=== PATIENT | male | born 1965 | race Caucasian/White ===

== ENCOUNTER 2022-06-19 21:22 | Inpatient (IN) | payer MEDICAID ==
[~2022-06-19] VITALS: Ht 172.7 cm; Wt 97.8 kg
--- NOTE | 2022-06-19 21:22 | NUR ---
PT BIBA FOR BRADYCARDIA, RESP DISTRESS, TRACH, VENT DEPENDENT. PT PLACED IN RM 2A ON MONITOR. DR Dariela DANIEL AND RESP AT BEDSIDE.
[2022-06-19] MEDS ORDERED: ALBUTEROL SULFATE 2.5 MG/3 ML NEBU ONE (21:25)
--- NOTE | 2022-06-19 21:26 | NUR ---
Called [facility] cardiology for panel call. Dr. Brooks banquet houseperson. Waiting for call back.
--- NOTE | 2022-06-19 21:40 | NUR ---
DR Dariela DANIEL PLACED A RT INTERNAL JUGULAR CENTRAL LINE. LABS DRAWN FROM LINE BY .
[2022-06-19] MEDS ORDERED: DOPamine IV DRIP 400 MG/250ML 250 ML ONE (21:57)
[2022-06-19] MEDS ORDERED: CEFTRIAXONE 1 G in IV DEXTROSE 5% 50 ML IV ONE (22:00)
[2022-06-19] MEDS ORDERED: PIPERACILLIN SODIUM/TAZOBACTAM 3.375 G in IV DEXTROSE 5% 50 ML IV ONE (22:00)
[2022-06-19] MEDS ORDERED: VANCOMYCIN IV 1,000 MG in IV DEXTROSE 5% 250 ML IV ONE (22:00)
[2022-06-19 22:14] LABS: HEMATOCRIT 22.6 % (36.7-47.1); MEAN CORPUSCULAR HEMOGLOBIN 33.7 uug (23.8-33.4); MEAN CORPUSCULAR VOLUME 102.2 fL (73.0-96.2)
[2022-06-19] MEDS ORDERED: ALBUTEROL SULFATE 2.5 MG/3 ML NEBU NEB ONE (22:15)
[2022-06-19] MEDS ORDERED: DOPamine IV DRIP 400 MG/250ML 250 ML IV PRN (22:15)
[2022-06-19 22:21] LABS: PLATELET COUNT (AUTO) 45 K/uL (152-348)
[2022-06-19 22:25] LABS: CARBON DIOXIDE 35 mmol/L (21-32); CHLORIDE 100 mmol/L (98-107); CREATININE 2.5 mg/dL (0.6-1.3); GLUCOSE 135 mg/dL (74-106); POTASSIUM 4.6 mmol/L (3.5-5.1); UREA NITROGEN, BLOOD 74 mg/dL (7-18)
[2022-06-19 22:28] LABS: BAND % (MANUAL) 2 % (0-10); LYMPHOCYTES % (MANUAL) 12 % (20-40)
[2022-06-19 22:29] LABS: EOSINOPHILS % (MANUAL) 10 % (0-8); MONOCYTES % (MANUAL) 4 % (2-10); NEUTROPHILS % (MANUAL) 72 % (42-75)
[2022-06-19 22:33] LABS: ABG BASE EXCESS 3.5 mmol/L; ABG HCO3 32.9 mmol/L; ABG PCO2 86.1 mmHg (35.0-45.0); ABG PO2 173.8 mmHg (75.0-100.0); ABG SITE LEFT RADIAL; ABG TOTAL HEMOGLOBIN 8.8 G/dL (13.5-18.0); COHb 0.3 % (0.5-1.5); MetHb 0.5 % (0.0-1.5); O2Hb 97.4 % (94.0-97.0); VENT MODE VENT - A/C; VT, ABG 450 mL
[2022-06-19 22:38] LABS: ALANINE AMINOTRANSFERASE 62 U/L (16-63); ALKALINE PHOSPHATASE 160 U/L (50-136); ASPARTATE AMINOTRANSFERASE 30 U/L (15-37); BILIRUBIN,DIRECT 0.1 mg/dL (0.0-0.2); BILIRUBIN,TOTAL 0.3 mg/dL (0.2-1.0); TOTAL PROTEIN, SERUM 7.6 g/dL (6.4-8.2)
[2022-06-19] MEDS ORDERED: chlorhexidine (23:04)
[2022-06-19] MEDS ORDERED: CHOL400C5 GT (23:04)
[2022-06-19] MEDS ORDERED: POLY15DR31 OP (23:04)
[2022-06-19] MEDS ORDERED: POLY250017 GT (23:04)
[2022-06-19] MEDS ORDERED: METO25TA6 GT (23:04)
[2022-06-19] MEDS ORDERED: ASCO500C18 GT (23:04)
[2022-06-19] MEDS ORDERED: FAMO20TA8 GT (23:04)
[2022-06-19] MEDS ORDERED: IPRA12.9 IH (23:04)
[2022-06-19] MEDS ORDERED: ZINC220T4 GT (23:04)
[2022-06-19] MEDS ORDERED: DOCU-141 GT (23:04)
[2022-06-19] MEDS ORDERED: ONDA-104 GT (23:04)
[2022-06-19] MEDS ORDERED: CLON0.1T GT (23:04)
[2022-06-19] MEDS ORDERED: MAGN400O6 GT (23:04)
[2022-06-19] MEDS ORDERED: BISA10SU61 RC (23:04)
[2022-06-19] MEDS ORDERED: ALBU8.5H8 IH (23:04)
[2022-06-19] MEDS ORDERED: ACET325C7 GT (23:04)
[2022-06-19] MEDS ORDERED: [UNRECOGNIZED DRUG - OTHER] SL (23:04)
[2022-06-19] MEDS ORDERED: LEVE500T9 GT (23:04)
[2022-06-19] MEDS ORDERED: NA P133E RC (23:04)
[2022-06-19] MEDS ORDERED: MULT-594 GT (23:04)
[2022-06-19] MEDS ORDERED: AMLO10TA59 PO (23:04)
--- NOTE | 2022-06-19 23:09 | NUR ---
Called [facility] for panel call. Dr. Wadsworth health education assistant.
[2022-06-19] MEDS ORDERED: IV NORMAL SALINE 500 ML BAG IV ONE (23:30)
[2022-06-19] MEDS ORDERED: VANCOMYCIN IV 200 ML ONE (23:44)
[2022-06-19] MEDS ORDERED: CEFTRIAXONE /D5W 50ML IVPB **ER PYXIS IV ONE (23:45)
[2022-06-19] MEDS ORDERED: PIPERACILLIN/TAZOBACTAM/D5W 50 ML IV ONE (23:45)
--- NOTE | 2022-06-19 23:45 | NUR ---
PREFORMED A GUIAC TEST. PT POSITIVE. TYPE AND SCREEN ORDERED.
--- NOTE | 2022-06-19 23:55 | NUR ---
LAB AT BEDSIDE. RN DRAWING TYPE AND SCREEN FROM CENTRAL LINE.
[2022-06-20] VITALS (77 sets, daily range): BP systolic 55–162; BP diastolic 23–101
[2022-06-20 00:03] LABS: *BILIRUBIN,URIN NEGATIVE (NEGATIVE); *BLOOD, URINE 3+ (NEGATIVE); *CLARITY,URINE TURBID (CLEAR); *COLOR,URINE YELLOW (YELLOW); *KETONES,URINE NEGATIVE (NEGATIVE); *UROBILINOGEN,URINE 0.2 E.U./dl (NORMAL); LEUKOCYTE ESTERASE ,URINE 3+ (NEGATIVE); NITRITE, URINE NEGATIVE (NEGATIVE); PH,URINE 6.5 (5.0-8.0); UGLUCOSE NEGATIVE (NEGATIVE)
[2022-06-20 00:06] LABS: *OCCULT BLOOD STOOL POSITIVE (NEGATIVE)
[2022-06-20 00:07] LABS: RBC,URINE TNTC /HPF (0-3); WBC,URINE TNTC /HPF (0-3)
[2022-06-20 00:08] LABS: BACTERIA,URINE MANY /HPF (NONE SEEN); SQUAMOUS EPITHELIAL CELL,UR NONE SEEN /HPF (NONE SEEN)
[2022-06-20] MEDS ORDERED: DOPamine IV DRIP 400 MG/250ML 250 ML ONE (00:26)
--- NOTE | 2022-06-20 00:32 | NUR ---
Called [facility] for panel call. Dr. Bean insulation worker furnace installer. Waiting insulation worker furnace installer back.
--- NOTE | 2022-06-20 00:39 | NUR ---
RT AT BEDSIDE SUCTIONING PT.
--- NOTE | 2022-06-20 01:11 | NUR ---
Dr. Green on [facility] call with Dr. Mckee. Pending admission.
[2022-06-20] MEDS ORDERED: NOREPINEPHRINE BITARTRATE 8 MG in IV NORMAL SALINE 242 ML IV PRN (01:15)
[2022-06-20 01:30] LABS: ABG HCO3 29.8 mmol/L; ABG PCO2 86.9 mmHg (35.0-45.0); ABG PH 7.153 (7.350-7.450); ABG PO2 417.1 mmHg (75.0-100.0); ABG SITE LEFT RADIAL; ABG TOTAL HEMOGLOBIN 8.6 G/dL (13.5-18.0); COHb 0.3 % (0.5-1.5); MetHb 0.3 % (0.0-1.5); O2Hb 99.2 % (94.0-97.0); VENT MODE VENT - A/C; VT, ABG 450 mL
[2022-06-20] MEDS ORDERED: REMEDY ESSENTIAL ZINC PASTE 113 GM TP PRN (01:30)
[2022-06-20] MEDS ORDERED: ACETAMINOPHEN 325 MG TABLET PO PRN (01:30)
[2022-06-20] MEDS ORDERED: ONDANSETRON 4 MG/2 ML VIAL IV PRN (01:30)
--- NOTE | 2022-06-20 01:40 | NUR ---
DR JUNIOR SAID TO CALL DR Scot LISA FOR A PULMONARY CONSULT
--- NOTE | 2022-06-20 01:55 | NUR ---
DR Scot LISA WAS CALLED . PT'S ABG VALUES WERE GIVEN. DR LISA SPOKE WITH RT. ORDERS WERE GIVEN TO CHANGE VENT SETTINGS FROM AC 18 TO AC 26.
--- NOTE | 2022-06-20 02:14 | NUR ---
Called patient's son on file. No one answered, left a message.
--- NOTE | 2022-06-20 02:25 | NUR ---
DR JUNIOR AT BEDSIDE FOR EVAL.
[2022-06-20] MEDS ORDERED: FUROSEMIDE 40 MG/4 ML VIAL IV ONE (03:00)
[2022-06-20 06:16] LABS: ABG BASE EXCESS 3.4 mmol/L; ABG HCO3 31.1 mmol/L; ABG PCO2 67.8 mmHg (35.0-45.0); ABG PH 7.279 (7.350-7.450); ABG PO2 412.8 mmHg (75.0-100.0); ABG SITE LEFT RADIAL; ABG TOTAL HEMOGLOBIN 8.4 G/dL (13.5-18.0); COHb 0.3 % (0.5-1.5); MetHb 0.3 % (0.0-1.5); O2Hb 99.2 % (94.0-97.0); VENT MODE VENT - A/C; VT, ABG 450 mL
--- NOTE | 2022-06-20 06:52 | NUR ---
Called [facility] for a hospital bed for patient to be brought down to the ER.
[2022-06-20] MEDS ORDERED: DOPamine IV DRIP 400 MG/250ML 250 ML IV PRN (07:00)
--- NOTE | 2022-06-20 07:00 | NUR ---
Received pt. on On mechanical ventilator A/C 26, Tv 450 Peep +5, 70% FIO2. Shiley 8. saturation of 96-98%. On hospital monitor and external pace, 120 mA rate of 70, On NSR rate,. Dopamine drip running at 20mcg/kg/min. G-T clumped and spangler to gravity. TLC RIJ patent, Right below the knee IO clamped as well. Abdominal folds with skin breakdown and generalized skin condition resembling psoriasis. Patient soiled and found in a pull of gastric secretions from G-t. Morning care provided and pt. transfer from 2A to room 1b due to monitoring issues not transmitting properly. Patient tolerated poorly been moved and with desaturation and sbp down to the low 80's.
--- NOTE | 2022-06-20 07:30 | NUR ---
Pulmonary services, Dr. Garcia in to examine pt. report given, orders to continue with care plan received.
[2022-06-20] MEDS ORDERED: PIPERACILLIN SODIUM/TAZOBACTAM 4.5 G in IV DEXTROSE 5% 50 ML IV SCH (08:00)
[2022-06-20] MEDS: NOREPINEPHRINE BITARTRATE 32 MG in IV NORMAL SALINE 218 ML IV PRN (08:04)
[2022-06-20] MEDS: DOPamine IV DRIP 800 MG/250ML 250 ML IV PRN ×2 (08:17→16:00)
--- NOTE | 2022-06-20 08:50 | NUR ---
Cardiology services, Dr. Jamil in the unit to examine pt. report given and at this time He changed external pacer to back rate of 40 and continue with 120mA. informed that pt, was started on levophed.
[2022-06-20] MEDS ORDERED: IPRATROPIUM BROMIDE 0.5 MG/2.5 ML NEBU ONE ×3 (08:52→19:49)
[2022-06-20] MEDS ORDERED: ALBUTEROL SULFATE 2.5 MG/ 0.5 ML NEBU ONE (08:52)
[2022-06-20] MEDS: IPRATROPIUM BROMIDE 0.5 MG/2.5 ML NEBU NEB SCH ×3 (08:55→19:44)
[2022-06-20] MEDS: ALBUTEROL SULFATE 2.5 MG/3 ML NEBU NEB SCH ×3 (08:55→19:44)
[2022-06-20] MEDS: PIPERACILLIN SODIUM/TAZOBACTAM 3.375 G in IV DEXTROSE 5% 100 ML IV SCH ×2 (08:58→16:02)
[2022-06-20] MEDS ORDERED: PANTOPRAZOLE SODIUM 40 MG VIAL ONE (09:07)
[2022-06-20] MEDS: PANTOPRAZOLE SODIUM 40 MG VIAL IV SCH (09:08)
[2022-06-20] MEDS ORDERED: VANCOMYCIN IV 1,250 MG in IV DEXTROSE 5% 250 ML IV ONE (10:00)
[2022-06-20] MEDS ORDERED: ALBUTEROL SULFATE 2.5 MG/3 ML NEBU ONE ×2 (13:04→19:48)
[2022-06-20 15:44] LABS: BILIRUBIN,TOTAL 0.4 mg/dL (0.2-1.0); CREATININE 2.5 mg/dL (0.6-1.3); MAGNESIUM 3.2 mg/dL (1.8-2.4); PHOSPHOROUS 7.5 mg/dL (2.5-4.9); POTASSIUM 4.9 mmol/L (3.5-5.1); TOTAL PROTEIN, SERUM 7.4 g/dL (6.4-8.2)
[2022-06-20 16:25] LABS: THYROID STIMULATING HORMONE 11.576 mIU/mL (0.358-3.740)
--- NOTE | 2022-06-20 18:28 | NUR ---
Patient left on Mechanical ventilator Trache to vent A/C 26, Tv450, Peep +5 FIo2 50%. saturation of 100% no respiratory distress. Hemodynamically stable sinus manny to NSR. Remains on external pacer Rate of 40, 120mA SBP sustained above 90's with levophed running at 0.1mc/kg/min, remains on Dopamine drip at 5mcg/kg/min, pt. did not tolerate been off with HR down to mid-40's. Rice to gravity and G-remains clumped awaiting recommendations.
--- NOTE | 2022-06-20 18:35 | NUR ---
Will endorse to incoming R.N. for continuity of care.
[2022-06-21] VITALS (72 sets, daily range): BP systolic 82–134; BP diastolic 43–73
[2022-06-21] MEDS: PIPERACILLIN SODIUM/TAZOBACTAM 3.375 G in IV DEXTROSE 5% 100 ML IV SCH ×3 (01:22→16:00)
[2022-06-21] MEDS ORDERED: ALBUTEROL SULFATE 2.5 MG/3 ML NEBU ONE ×4 (01:32→19:33)
[2022-06-21] MEDS ORDERED: IPRATROPIUM BROMIDE 0.5 MG/2.5 ML NEBU ONE ×4 (01:33→19:34)
[2022-06-21] MEDS: IPRATROPIUM BROMIDE 0.5 MG/2.5 ML NEBU NEB SCH ×4 (02:00→20:42)
[2022-06-21] MEDS: ALBUTEROL SULFATE 2.5 MG/3 ML NEBU NEB SCH ×4 (02:01→20:43)
[2022-06-21 04:48] LABS: HEMATOCRIT 23.7 % (36.7-47.1); MEAN CORPUSCULAR HEMOGLOBIN 32.7 uug (23.8-33.4); PLATELET COUNT (AUTO) 98 K/uL (152-348)
[2022-06-21 05:42] LABS: BILIRUBIN,TOTAL 0.4 mg/dL (0.2-1.0); CREATININE 2.9 mg/dL (0.6-1.3); MAGNESIUM 3.3 mg/dL (1.8-2.4); PHOSPHOROUS 7.6 mg/dL (2.5-4.9); POTASSIUM 4.2 mmol/L (3.5-5.1); TOTAL PROTEIN, SERUM 7.8 g/dL (6.4-8.2)
[2022-06-21 06:18] LABS: ABG BASE EXCESS 4.2 mmol/L; ABG HCO3 30.4 mmol/L; ABG PCO2 55.1 mmHg (35.0-45.0); ABG PO2 87.9 mmHg (75.0-100.0); ABG SITE RIGHT RADIAL; ABG TOTAL HEMOGLOBIN 8.6 G/dL (13.5-18.0); COHb 0.3 % (0.5-1.5); MetHb 0.3 % (0.0-1.5); O2Hb 95.2 % (94.0-97.0); VENT MODE VENT - A/C; VT, ABG 450 mL
--- NOTE | 2022-06-21 06:30 | NUR ---
End of Shift Summary Recieved patient in bed. Pt has no meaningful interaction with others. Pt is from a congregate home. Pt skin is covered with dry flaky skin. His eyes are covered with gauze. Upon inspection, patients eyes are bulging and red with yellow exudate. Patient has a history of conjuctivitis. Pt has a GTube but it is clamped. I inquired abut te patients glucose source, but was told that the Diateray and wound consults. Patient was found to have 2 ulcers on his Right ankle and right heel respectively. Awaiting wound care consult. Pt is on a transcutaneous pacer. Patients has copious secretions and he coughts and becomes spastic whenever he is suctioned or turned. Report endorsed to day shift RN. Vital signss stable at the change of shift.
--- NOTE | 2022-06-21 07:15 | NUR ---
Dr Garcia saw the patient as was shown the ABG results. All questions answered.
--- NOTE | 2022-06-21 07:20 | NUR ---
Recieved patient from outboard motor mechanic nurse. Pt is on pressors. Pt's skin is dry and flakey. GT is present and clamped. Dietary and would care consult have been requested. Pt's eyes are bulging with yellow exudate and hisotry of conjunctivitis. IV access is IO on right turcios and TLC in RIJ. Vent settings are AC 26, TV 450, PEEP 5, FIO2 50%. Trach size is Shiley 8. AOx0 posturing with touched or moved. Cardiac rhythm is SB to NSR in th 50s to 60s. External pacer attached with settings of 40BPM and 120 mA.
[2022-06-21] MEDS ORDERED: PANTOPRAZOLE SODIUM 40 MG VIAL ONE (07:34)
[2022-06-21] MEDS ORDERED: PIPERACILLIN/TAZOBACTAM/D5W 0 ML IV ONE (07:36)
--- NOTE | 2022-06-21 08:10 | NUR ---
Dr Villeda saw the patient and I updated him about patient's condition. Dr Villeda said that we can turn off the external pacer because it has not been needed in over 24 hours and we can turn it back on if it is needed. He turned it off at 8:10 AM.
[2022-06-21] MEDS: PANTOPRAZOLE SODIUM 40 MG VIAL IV SCH (08:20)
--- NOTE | 2022-06-21 17:00 | NUR ---
Dr Wadsworth saw the patient and was updated about his condition.
[2022-06-21] MEDS: DOPamine IV DRIP 800 MG/250ML 250 ML IV PRN (17:50)
[2022-06-22] VITALS (43 sets, daily range): BP systolic 83–126; BP diastolic 34–80
[2022-06-22] MEDS ORDERED: ALBUTEROL SULFATE 2.5 MG/3 ML NEBU ONE ×4 (00:35→19:10)
[2022-06-22] MEDS ORDERED: IPRATROPIUM BROMIDE 0.5 MG/2.5 ML NEBU ONE ×4 (00:36→19:10)
[2022-06-22] MEDS: IPRATROPIUM BROMIDE 0.5 MG/2.5 ML NEBU NEB SCH ×4 (01:02→19:14)
[2022-06-22] MEDS: ALBUTEROL SULFATE 2.5 MG/3 ML NEBU NEB SCH ×4 (01:02→19:14)
[2022-06-22] MEDS: PIPERACILLIN SODIUM/TAZOBACTAM 3.375 G in IV DEXTROSE 5% 100 ML IV SCH ×3 (01:28→16:39)
[2022-06-22 04:50] LABS: PLATELET COUNT (AUTO) 78 K/uL (152-348)
[2022-06-22 04:52] LABS: MEAN CORPUSCULAR HEMOGLOBIN 33.6 uug (23.8-33.4); MEAN CORPUSCULAR VOLUME 100.2 fL (73.0-96.2)
[2022-06-22 05:11] LABS: CREATININE 2.6 mg/dL (0.6-1.3); MAGNESIUM 2.8 mg/dL (1.8-2.4); POTASSIUM 4.1 mmol/L (3.5-5.1)
[2022-06-22 05:33] LABS: ABG BASE EXCESS 7.9 mmol/L; ABG HCO3 33.2 mmol/L; ABG PCO2 53.9 mmHg (35.0-45.0); ABG PH 7.408 (7.350-7.450); ABG PO2 91.1 mmHg (75.0-100.0); ABG SITE RIGHT RADIAL; COHb 0.3 % (0.5-1.5); MetHb 0.5 % (0.0-1.5); O2Hb 95.8 % (94.0-97.0); VENT MODE VENT - A/C; VT, ABG 450 mL
--- NOTE | 2022-06-22 06:40 | NUR ---
Pt received with eyes closed in bed. Pt is non verbal and does ot communicate in any meaningful way. Pt is sensitive to tactile stimulation only. His eyes are covered with gauze because of severe conjunctivities and bulging. Pt is on levophed 0.05mcg/kg and 5 mcg of levophed for BP and Heart Rate support. Pt had positive blood cultures gram positive cocci in clusters and chains. Pt also has gram negative rods. Dr. Wadsworth called about critical lab values, no further order. for positive blood cultures. Shortly after 0600, slab installer called to report Hgb is 6.4 and Hct is 19.0. Report called into Eliz Mercado CARD LACER JACQUARD who gave orders to transfuse one unit of PRBC's. At time of this report, I am still waitin fr the oncoming shift. Vitals signs stable at change of shift. Report endorsed to day shift RN.
--- NOTE | 2022-06-22 07:14 | NUR ---
I called Neva Green, () at telephone [phone] to obtain consent for blood transfusion. No response. I received a message that "the subscriber is not in service". I also called gerardo Reeder at [phone] but there was no response, so I left a message with the ER's telephone number to request a call back. Report endorsed to day shift RN.
[2022-06-22] MEDS ORDERED: PANTOPRAZOLE SODIUM 40 MG VIAL ONE (07:48)
[2022-06-22] MEDS: PANTOPRAZOLE SODIUM 40 MG VIAL IV SCH (08:02)
--- NOTE | 2022-06-22 08:45 | NUR ---
Spoke with Dr Garcia about pt at bedside when he saw the patient. I updated him as to the patients FIO2 and ABG results and other labs and patients condition.
--- NOTE | 2022-06-22 12:02 | NUR ---
WOUND CARE CONSULT: PT PRESENTS WITH GENERALIZED SKIN CONDITION WITH REDDENED SKIN WHICH IS FLAKY AND HARDENED WITH GENERALIZED EDEMA, RT LATERAL ANKLE OPEN WOUND WITH HARDWARE EXPOSURE AND RT HEEL WOUND, ALL PRESENT ON ADMISSION. DEFER TO PMD FOR GENERALIZED SKIN CONDITION, UNKNOWN ETIOLOGY. DR DICKERSON CALLED FOR DPM CONSULT. DISCUSSED SKIN PROTECTION RECOMMENDATIONS WITH NURSING STAFF. MD IN AGREEMENT WITH PLAN OF CARE.
--- NOTE | 2022-06-22 12:05 | NUR ---
I called the at her phone number and no answer and a message that said the number is no longer in service [phone]. I also called the step son Varinder Latif at [phone] ([place] -3 hours time difference) and left a message when he didn't answer.
[2022-06-22] MEDS: DOPamine IV DRIP 800 MG/250ML 250 ML IV PRN (13:10)
[2022-06-22] MEDS: VANCOMYCIN IV 500 MG in IV DEXTROSE 5% 100 ML IV SCH (13:58)
--- NOTE | 2022-06-22 15:05 | NUR ---
Spoke with Sam Giullory (Pronounced "Rainy") [phone] (step son) about blood tranfusion consent and he informed me that the one to give consent is the patients , Flaquita Green. He told me that she doesn't have a phone number that works at this time but that she could be reached by email. I told him that we can't do email consent for transfusion and asked him to email her to call us about obtaining the consent for the transfusion as soon as possible.
--- NOTE | 2022-06-22 15:25 | NUR ---
Dr Wadsworth saw the patient and I updated him about the delay for the transfusion because we are having difficulty obtrining the consent from the of the patient.
--- NOTE | 2022-06-22 19:00 | NUR ---
VERBAL BEDSIDE REPORT RECEIVED FROM TEENA KELLY. PT. RECEIVED IN BED. SUPINE. FACILITY MANAGER HISTOLOGY INTACT DEPICTING SR WOTH NO ECTOPIC BEATS. PACING PADS ATTACHED TO PT. SETTINGS RESUMED PER MD ORDERS RATE 40 mA 120. PT. HR 70'S NIBP IN USED MONITORING BP Q 15. PT. CONTINUES ON LEVOPHED CONC. 32MG/218CC AT 0.05MCG AT SHIFT REPORT. I INCREASED TO 0.1 MCG BECAUSE PT. WAS GOING INTO THE 80'S SYSTOLIC. DOPAMINE GTTTS. 32/250CC CONTINUE AT 5MCG. PT. TRACH TO VENT. SETTINGS VERIFIED BY GREASE RENDERER PRESENT AT BEDSIDE. AC26 450 35% +5 SEE NURSING FLOW SHEET FOR COMPLETE ASSESSMENT DETAILS. MONITORED FOR BRADYCARDIA, HYPOTENSION/HYPERTENSION, PAIN, ACUTE DISTRESS AND OVERALL CLINICAL CHANGE IN CONDITION.
--- NOTE | 2022-06-22 20:27 | NUR ---
Call made to Kirkrosie Lee) son of pt. in attempt to f/u on consent for blood transfusion orders. Left message on answering machine to call RN back regarding a matter at [phone] . Call also attemted to Flaquita Green as per note () of patient however phone is disconnected. Will make primary MD aware/update.
[2022-06-22] MEDS: NOREPINEPHRINE BITARTRATE 32 MG in IV NORMAL SALINE 218 ML IV PRN (20:55)
[2022-06-22] MEDS ORDERED: MEROPENEM 0.5 G in IV NORMAL SALINE 50 ML IV SCH (22:00)
--- NOTE | 2022-06-22 22:14 | NUR ---
Random POC glucose taken 80dl/ml.
--- NOTE | 2022-06-22 23:03 | NUR ---
emergency consent signed by Ne LOZANO and SURINDER CHAPA. Unable tp leaf size picker Unit at this time as cannot be released as of yet from bloodbank. Awaiting disposition.
[2022-06-23] VITALS (65 sets, daily range): BP systolic 47–162; BP diastolic 34–99
--- NOTE | 2022-06-23 00:14 | NUR ---
Bilat. eye drsgs. removed. Pt. sclera with marked edema and reddened. More erythemic on right eye than left. Right sclera sticking to guaze with cataraact and eye closing with difficulty. Hydrated both eyes with sterile saline. tape gently placed to lids bilat. to keep lids closed without 2x2 guaze .
--- NOTE | 2022-06-23 00:50 | NUR ---
PRBC obtained from and started at 60cc/hr. x 15 min. Pt. monitored for adverse rxns.
[2022-06-23] MEDS: VANCOMYCIN IV 500 MG in IV DEXTROSE 5% 100 ML IV SCH (01:54)
--- NOTE | 2022-06-23 01:54 | NUR ---
ABX w/held secondary to blood transfusing.
[2022-06-23] MEDS: MEROPENEM 0.5 G in IV NORMAL SALINE 50 ML IV SCH ×3 (01:59→15:10)
[2022-06-23] MEDS ORDERED: IPRATROPIUM BROMIDE 0.5 MG/2.5 ML NEBU ONE ×4 (02:04→19:37)
[2022-06-23] MEDS ORDERED: ALBUTEROL SULFATE 2.5 MG/3 ML NEBU ONE ×3 (02:04→13:16)
[2022-06-23] MEDS: IPRATROPIUM BROMIDE 0.5 MG/2.5 ML NEBU NEB SCH ×4 (02:06→19:39)
[2022-06-23] MEDS: ALBUTEROL SULFATE 2.5 MG/3 ML NEBU NEB SCH ×3 (02:06→07:35)
--- NOTE | 2022-06-23 02:43 | NUR ---
Blood transfusion Unit #[id number] continues to transfuse w/out adverse rxns. Pt. eyes moisturized bilat. with sterile NS. Gently replaced skin tape to lids. Pt. tolerating well.
--- NOTE | 2022-06-23 03:27 | NUR ---
Pt care continue as he has completed the Transfusion with no S/S off distress or Reactions noted at these hour.
[2022-06-23] MEDS ORDERED: MEROPENEM 500MG/NS 50ML PB ***ER PYXIS ONLY IV ONE (04:09)
[2022-06-23 05:58] LABS: MEAN CORPUSCULAR HEMOGLOBIN 32.2 uug (23.8-33.4); MEAN CORPUSCULAR VOLUME 99.9 fL (73.0-96.2); PLATELET COUNT (AUTO) 121 K/uL (152-348)
[2022-06-23 06:03] LABS: CREATININE 2.8 mg/dL (0.6-1.3); MAGNESIUM 2.7 mg/dL (1.8-2.4); PHOSPHOROUS 6.7 mg/dL (2.5-4.9); POTASSIUM 3.3 mmol/L (3.5-5.1)
[2022-06-23] MEDS ORDERED: IV D5W 1000ML 1,000 ML IV ONE (07:30)
--- NOTE | 2022-06-23 07:30 | NUR ---
Received patient in Afib with HR 108-140s. Still receiving blood transfusion (second unit). BP becoming normotensive. Ventilarot settings are AC 26, TV 450, FIO2 35%, PEEP 5 and trach size Shiley 8. Levophed running at 0.2 mcg/kg/min and Dopamin running at 5mcg/kg/min.
--- NOTE | 2022-06-23 07:56 | NUR ---
Pt. endorsed to oncoming ROBIN Tellez. Pt. had episode of rapid Afib up to 170's per monitor.BP hypotensive. Increased Levophed to 0.20 mcg. dopamine resumed at 5 mcg. With blood transfusion pt. was beginning to stabilize allowing for decrease in pressors. Pt. was placed on air mattress and was too unstable to tolerate . Requirede approx. 45. min to stabolize BP and HR. Pt. remains HR ranging 108-140's. per pacing monitor and bedside pompom maker.
[2022-06-23] MEDS ORDERED: VANCOMYCIN IV 500 MG in IV DEXTROSE 5% 100 ML IV ONE (08:00)
--- NOTE | 2022-06-23 08:02 | NUR ---
vERBAL UPDATE GIVEN TO PULMONARY MD ROUNDING. HR AT 140. BP AT 117/66. TEENA KELLY PRESENT AT BEDSIDE.
[2022-06-23] MEDS ORDERED: PANTOPRAZOLE SODIUM 40 MG VIAL ONE (08:58)
--- NOTE | 2022-06-23 09:05 | NUR ---
Called Dr Villeda and notified him about the patient having Afib with RVR and HR fluctuating between 90s to upper 150s. He ordered to hold the Dopamine for now and said that he is on his way to see the patient.
[2022-06-23] MEDS: PANTOPRAZOLE SODIUM 40 MG VIAL IV SCH (09:21)
[2022-06-23 09:29] LABS: ABG BASE EXCESS 1.9 mmol/L; ABG HCO3 26.6 mmol/L; ABG PCO2 42.5 mmHg (35.0-45.0); ABG PH 7.415 (7.350-7.450); ABG PO2 79.7 mmHg (75.0-100.0); ABG SITE RIGHT RADIAL; ABG TOTAL HEMOGLOBIN 9.9 G/dL (13.5-18.0); COHb 0.3 % (0.5-1.5); MetHb 0.2 % (0.0-1.5); O2Hb 94.8 % (94.0-97.0); VENT MODE VENT - A/C; VT, ABG 450 mL
[2022-06-23] MEDS ORDERED: POTASSIUM CHLORIDE 20 MEQ POWDER PACKET GT ONE (10:30)
[2022-06-23] MEDS ORDERED: POTASSIUM CHLORIDE 20 MEQ POWDER PACKET ONE (10:47)
--- NOTE | 2022-06-23 11:27 | NUR ---
Dr Villeda saw the patient as I updated him about the pt's status and HR, rhythm, and VS. No new orders he wants to see if the patient will convert out of it on his own for now becasue he was previously bradycardic.
[2022-06-23] MEDS ORDERED: LEVALBUTEROL HCL NEB 0.63 MG/3 ML NEBU ONE ×2 (13:30→19:37)
[2022-06-23] MEDS: LEVALBUTEROL HCL NEB 0.63 MG/3 ML NEBU NEB SCH ×2 (13:31→19:39)
[2022-06-24] VITALS (43 sets, daily range): BP systolic 69–195; BP diastolic 37–113
[2022-06-24] MEDS ORDERED: LEVALBUTEROL HCL NEB 0.63 MG/3 ML NEBU ONE ×4 (01:41→19:37)
[2022-06-24] MEDS ORDERED: IPRATROPIUM BROMIDE 0.5 MG/2.5 ML NEBU ONE ×4 (01:41→19:37)
[2022-06-24] MEDS: IPRATROPIUM BROMIDE 0.5 MG/2.5 ML NEBU NEB SCH ×4 (01:43→19:38)
[2022-06-24] MEDS: LEVALBUTEROL HCL NEB 0.63 MG/3 ML NEBU NEB SCH ×4 (01:44→19:38)
[2022-06-24] MEDS: MEROPENEM 0.5 G in IV NORMAL SALINE 50 ML IV SCH ×2 (03:04→16:22)
--- NOTE | 2022-06-24 03:25 | NUR ---
Activated external cardiac pacemaker: rate 60, mA 44.
[2022-06-24 05:59] LABS: HEMATOCRIT 26.7 % (36.7-47.1); MEAN CORPUSCULAR HEMOGLOBIN 31.7 uug (23.8-33.4); MEAN CORPUSCULAR VOLUME 95.1 fL (73.0-96.2); PLATELET COUNT (AUTO) 128 K/uL (152-348)
[2022-06-24 06:05] LABS: CREATININE 2.2 mg/dL (0.6-1.3); MAGNESIUM 2.5 mg/dL (1.8-2.4); PHOSPHOROUS 3.3 mg/dL (2.5-4.9); POTASSIUM 3.7 mmol/L (3.5-5.1)
--- NOTE | 2022-06-24 07:00 | NUR ---
Received pt. on the ventilator A/C 26, Tv450, FIO2 35% saturation of 96% no respiratory distress noted. On patient monitor SR -SB to lower mid 50's as reported pt. on external pacer since 129 rate of 60's and mA 44. SBP sustained with levophed running at 0.05mcg/kg/min. Spangler to gravity. Morning care provided at this time pt. pt. soiled with stool and pads disintegrating pt. tolerating it poorly. with the need to increase fio2 to 100% for as long as the cleaning lasted. G-T clumped, spangler to gravity.
--- NOTE | 2022-06-24 07:40 | NUR ---
External pacer off, HR above 50'-60's.
--- NOTE | 2022-06-24 07:45 | NUR ---
Pulmonary services Dr. Gianni Luke in to examine pt. report given orders to continue with care plan received and implemented.
[2022-06-24] MEDS ORDERED: VANCOMYCIN IV 500 MG in IV DEXTROSE 5% 100 ML IV ONE (08:00)
[2022-06-24] MEDS ORDERED: PANTOPRAZOLE SODIUM 40 MG VIAL ONE (08:39)
--- NOTE | 2022-06-24 08:45 | NUR ---
Nephrology services, Dr. Cardoza in the unit to examine pt,. report given see order hx.
[2022-06-24] MEDS: PANTOPRAZOLE SODIUM 40 MG VIAL IV SCH (08:56)
--- NOTE | 2022-06-24 15:00 | NUR ---
Attending physician in to examine pt. report given orders to continue with care plan received.
[2022-06-24] MEDS ORDERED: VITAMINS A AND D OINT 42 GM TUBE TP PRN (16:30)
[2022-06-24] MEDS: POLYVINYL ALCOHOL OPHT DROPS 15 ML BOTTLE EACHEYE PRN (17:03)
[2022-06-24] MEDS: MINERAL OIL/PETROLAT OPHT OINT 3.5 GM TUBE EACHEYE SCH (17:05)
[2022-06-25] VITALS (24 sets, daily range): BP systolic 90–156; BP diastolic 50–112
[2022-06-25] MEDS ORDERED: LEVALBUTEROL HCL NEB 0.63 MG/3 ML NEBU ONE ×3 (01:16→13:25)
[2022-06-25] MEDS ORDERED: IPRATROPIUM BROMIDE 0.5 MG/2.5 ML NEBU ONE ×4 (01:16→19:54)
[2022-06-25] MEDS: IPRATROPIUM BROMIDE 0.5 MG/2.5 ML NEBU NEB SCH ×4 (01:17→19:55)
[2022-06-25] MEDS: LEVALBUTEROL HCL NEB 0.63 MG/3 ML NEBU NEB SCH ×2 (01:17→07:39)
[2022-06-25] MEDS: MEROPENEM 0.5 G in IV NORMAL SALINE 50 ML IV SCH ×3 (03:16→21:27)
[2022-06-25 04:52] LABS: HEMATOCRIT 25.2 % (36.7-47.1); MEAN CORPUSCULAR VOLUME 95.6 fL (73.0-96.2); PLATELET COUNT (AUTO) 111 K/uL (152-348)
[2022-06-25 05:15] LABS: CREATININE 1.6 mg/dL (0.6-1.3); MAGNESIUM 2.2 mg/dL (1.8-2.4); PHOSPHOROUS 2.9 mg/dL (2.5-4.9)
--- NOTE | 2022-06-25 06:00 | NUR ---
Trach care & GT cares done.
--- NOTE | 2022-06-25 07:10 | NUR ---
Received pt. hemodynamically stable, sbp above 90's. On monitoring and evaluation advisor and sinus bradycardia rate in the 50's. On mechanical ventilator with same settings: [id number], PEEP+5, and 35%FIO2 no respiratory distress noted. PEG clamped, Rice to gravity with sedimented amy output. RIJ TLC patent. Will continue with care plan.
[2022-06-25] MEDS ORDERED: VANCOMYCIN IV 1,000 MG in IV DEXTROSE 5% 250 ML IV ONE (08:00)
--- NOTE | 2022-06-25 08:00 | NUR ---
Patient seen by charity fundraiser report given orders to continue with care plan received.
[2022-06-25] MEDS ORDERED: PANTOPRAZOLE SODIUM 40 MG VIAL ONE (08:12)
[2022-06-25] MEDS: PANTOPRAZOLE SODIUM 40 MG VIAL IV SCH (08:13)
--- NOTE | 2022-06-25 09:30 | NUR ---
Patient seen by eligibility supervisor report given orders to continue with care plan receives.
--- NOTE | 2022-06-25 10:30 | NUR ---
Bladder scanned at this time with a total of 195cc resulted, as I was informed during shift report pt. did not void since arrival to [facility] and according to pt. he has problems with retention and had procedures done in the past. attending notified orders to insert spangler catheter received. Addendum: 06/25/22 at 1423 by QUINTON CASTELLON RN The above note was intended for another patient.
--- NOTE | 2022-06-25 10:45 | NUR ---
4 fail attempts to insert spangler catheter pt's urethra has the size of a needle. Attending informed and I was informed to wait for urologist Dr. Fair and to have urologist wendie ready. Addendum: 06/25/22 at 1425 by QUINTON CASTELLON RN The above note was intended for another patient.
[2022-06-25] MEDS ORDERED: POTASSIUM CHLORIDE 20 MEQ POWDER PACKET ONE (11:31)
--- NOTE | 2022-06-25 11:50 | NUR ---
Dr. Beltran urologist in to insert spangler Procedure finish at 1300 Dr. richardson to insert spangler and patient undergo insertion of Supra Pubic Catheter. Addendum: 06/25/22 at 1427 by QUINTON CASTELLON RN The above note was intended for another patient.
[2022-06-25] MEDS ORDERED: POTASSIUM CHLORIDE 20 MEQ POWDER PACKET GT ONE (12:00)
--- NOTE | 2022-06-25 13:00 | NUR ---
PICC line Luis Alfredo Lobo in to insert picc line ordered earlier. 1325 procedure done and chest X-ray orders. As per picc line R.N. line ready to use with no need to wait for Chest X-ray results. Addendum: 06/25/22 at 1430 by QUINTON CASTELLON RN The above note is for another pt.
[2022-06-25] MEDS: MINERAL OIL/PETROLAT OPHT OINT 3.5 GM TUBE EACHEYE SCH (13:08)
[2022-06-25] MEDS: POLYVINYL ALCOHOL OPHT DROPS 15 ML BOTTLE EACHEYE PRN (13:08)
[2022-06-25] MEDS: ALBUTEROL SULFATE 1.25 MG/3 ML NEBU NEB SCH ×2 (13:38→19:55)
[2022-06-25] MEDS ORDERED: ALBUTEROL SULFATE 1.25 MG/3 ML NEBU ONE (19:54)
[2022-06-26] VITALS (23 sets, daily range): BP systolic 91–131; BP diastolic 38–85
[2022-06-26] MEDS ORDERED: IPRATROPIUM BROMIDE 0.5 MG/2.5 ML NEBU ONE ×4 (01:06→19:07)
[2022-06-26] MEDS ORDERED: ALBUTEROL SULFATE 1.25 MG/3 ML NEBU ONE ×4 (01:06→19:07)
[2022-06-26] MEDS: ALBUTEROL SULFATE 1.25 MG/3 ML NEBU NEB SCH ×4 (01:32→19:22)
[2022-06-26] MEDS: IPRATROPIUM BROMIDE 0.5 MG/2.5 ML NEBU NEB SCH ×4 (01:32→19:22)
[2022-06-26] MEDS: MEROPENEM 0.5 G in IV NORMAL SALINE 50 ML IV SCH (05:06)
[2022-06-26 05:08] LABS: HEMATOCRIT 26.1 % (36.7-47.1); MEAN CORPUSCULAR HEMOGLOBIN 31.6 uug (23.8-33.4); PLATELET COUNT (AUTO) 115 K/uL (152-348)
[2022-06-26 05:39] LABS: BILIRUBIN,TOTAL 0.6 mg/dL (0.2-1.0); CREATININE 1.4 mg/dL (0.6-1.3); MAGNESIUM 2.2 mg/dL (1.8-2.4); PHOSPHOROUS 2.6 mg/dL (2.5-4.9); POTASSIUM 3.1 mmol/L (3.5-5.1); TOTAL PROTEIN, SERUM 6.1 g/dL (6.4-8.2)
[2022-06-26 07:45] LABS: ABG BASE EXCESS 0.8 mmol/L; ABG HCO3 27.2 mmol/L; ABG PCO2 52.5 mmHg (35.0-45.0); ABG PH 7.333 (7.350-7.450); ABG PO2 80.8 mmHg (75.0-100.0); ABG SITE RIGHT RADIAL; ABG TOTAL HEMOGLOBIN 10.4 G/dL (13.5-18.0); COHb 0.3 % (0.5-1.5); MetHb 0.4 % (0.0-1.5); O2Hb 93.8 % (94.0-97.0); VENT MODE VENT - A/C; VT, ABG 450 mL
[2022-06-26] MEDS ORDERED: MIDODRINE HCL 2.5 MG TABLET PO SCH (07:45)
[2022-06-26] MEDS ORDERED: POTASSIUM CHLORIDE 20 MEQ POWDER PACKET GT ONE (07:45)
[2022-06-26] MEDS ORDERED: PANTOPRAZOLE SODIUM 40 MG VIAL ONE (07:55)
[2022-06-26] MEDS: PANTOPRAZOLE SODIUM 40 MG VIAL IV SCH (08:00)
--- NOTE | 2022-06-26 08:00 | NUR ---
Dr Villeda saw the patient and specified that the medications that he ordere should be that the Midorine first then the Albumen and when that is finished give the lasix to prevent his BP from dropping Addendum: 06/27/22 at 1019 by QUINTON CASTELLON RN AT this time cardiac clearance for MALATHI status, ok with
[2022-06-26] MEDS ORDERED: POTASSIUM CHLORIDE 20 MEQ POWDER PACKET ONE (08:30)
[2022-06-26] MEDS ORDERED: MIDODRINE HCL 5 MG TABLET ONE ×3 (08:30→21:15)
[2022-06-26] MEDS ORDERED: POTASSIUM CHLORIDE 250 ML ONE (08:32)
[2022-06-26] MEDS ORDERED: ALBUMIN HUMAN 25% 100 ML ONE ×3 (08:33→20:21)
[2022-06-26] MEDS: POTASSIUM CHLORIDE 50 ML IV SCH ×4 (08:35→11:48)
[2022-06-26] MEDS: ALBUMIN HUMAN 25% 100 ML IV SCH ×3 (08:37→20:24)
[2022-06-26] MEDS: MIDODRINE HCL 5 MG TABLET PO SCH ×3 (08:38→21:16)
[2022-06-26] MEDS ORDERED: VANCOMYCIN IV 750 MG in IV DEXTROSE 5% 250 ML IV ONE (09:00)
[2022-06-26] MEDS ORDERED: FUROSEMIDE 40 MG/4 ML VIAL ONE (09:18)
[2022-06-26] MEDS ORDERED: FUROSEMIDE 20 MG/2 ML VIAL ONE ×2 (09:49→21:15)
[2022-06-26] MEDS: FUROSEMIDE 20 MG/2 ML VIAL IV SCH ×2 (09:50→21:16)
[2022-06-26] MEDS ORDERED: VANCOMYCIN IV 500 MG in IV DEXTROSE 5% 100 ML IV ONE (11:00)
[2022-06-26] MEDS: MEROPENEM 1 G in IV NORMAL SALINE 100 ML IV SCH ×2 (11:38→20:08)
[2022-06-26] MEDS: POLYVINYL ALCOHOL OPHT DROPS 15 ML BOTTLE EACHEYE PRN (12:30)
[2022-06-26] MEDS ORDERED: LINEZOLID 600 MG/300 ML PIGGYBACK IV ONE (12:55)
[2022-06-26] MEDS: LINEZOLID IV 600 MG in PREMIXED 1 EACH IV SCH (12:59)
[2022-06-26] MEDS ORDERED: CHOLECALCIFEROL 1,000 UNIT TABLET ONE (15:31)
[2022-06-26] MEDS ORDERED: levETIRAcetam 500 MG/5 ML LIQUID UDC ONE (15:31)
[2022-06-26] MEDS ORDERED: MIRALAX 17 GM POWD.PACK ONE (15:31)
[2022-06-26] MEDS ORDERED: ASCORBIC ACID 500 MG TABLET ONE (15:32)
[2022-06-26] MEDS: levETIRAcetam 500 MG/5 ML LIQUID UDC GT SCH (15:37)
[2022-06-26] MEDS: CHOLECALCIFEROL 1,000 UNIT TABLET GT SCH (15:37)
[2022-06-26] MEDS: MULTIVIT, IRON, MIN NO. 8, FA TABLET GT SCH (15:38)
[2022-06-26] MEDS: ASCORBIC ACID 500 MG TABLET GT SCH (15:39)
[2022-06-26] MEDS: MIRALAX 17 GM POWD.PACK GT SCH (15:39)
[2022-06-27] VITALS (14 sets, daily range): BP systolic 90–128; BP diastolic 42–72
[2022-06-27] MEDS ORDERED: IPRATROPIUM BROMIDE 0.5 MG/2.5 ML NEBU ONE ×3 (00:23→12:56)
[2022-06-27] MEDS ORDERED: ALBUTEROL SULFATE 1.25 MG/3 ML NEBU ONE ×3 (00:23→12:56)
[2022-06-27] MEDS: LINEZOLID IV 600 MG in PREMIXED 1 EACH IV SCH ×2 (00:33→15:31)
[2022-06-27] MEDS: IPRATROPIUM BROMIDE 0.5 MG/2.5 ML NEBU NEB SCH ×4 (00:50→20:47)
[2022-06-27] MEDS: ALBUTEROL SULFATE 1.25 MG/3 ML NEBU NEB SCH ×4 (00:50→20:47)
[2022-06-27] MEDS ORDERED: ALBUMIN HUMAN 25% 100 ML ONE (02:12)
[2022-06-27] MEDS: ALBUMIN HUMAN 25% 100 ML IV SCH (02:16)
[2022-06-27] MEDS: MEROPENEM 1 G in IV NORMAL SALINE 100 ML IV SCH ×2 (03:15→12:46)
[2022-06-27] MEDS ORDERED: MIDODRINE HCL 5 MG TABLET ONE ×2 (05:40→15:39)
[2022-06-27] MEDS: MIDODRINE HCL 5 MG TABLET PO SCH ×3 (05:44→21:36)
[2022-06-27 06:40] LABS: ABG BASE EXCESS 0.2 mmol/L; ABG HCO3 27.4 mmol/L; ABG PCO2 58.1 mmHg (35.0-45.0); ABG PH 7.292 (7.350-7.450); ABG PO2 76.9 mmHg (75.0-100.0); ABG SITE RIGHT BRACHIAL; ABG TOTAL HEMOGLOBIN 10.1 G/dL (13.5-18.0); COHb 0.3 % (0.5-1.5); MetHb 0.2 % (0.0-1.5); O2Hb 93.1 % (94.0-97.0); VENT MODE VENT - A/C; VT, ABG 450 mL
--- NOTE | 2022-06-27 07:00 | NUR ---
Received pt. on elevator technician Sinus Job rate in the 40's sbp within desired limits. On mechanical ventilator A/C of 26, Tv 450, Peep +5 and FIO2 35% no respiratory distress noted. G-T with feeding running at 10ml/hr. Goal not achieved. Rice to gravity. TLC patent skin over all with no complications wound will be treated as ordered.
[2022-06-27 07:14] LABS: HEMATOCRIT 25.3 % (36.7-47.1); MEAN CORPUSCULAR HEMOGLOBIN 31.7 uug (23.8-33.4); MEAN CORPUSCULAR VOLUME 96.5 fL (73.0-96.2); PLATELET COUNT (AUTO) 114 K/uL (152-348)
[2022-06-27] MEDS ORDERED: MIRALAX 17 GM POWD.PACK ONE (07:38)
[2022-06-27] MEDS ORDERED: levETIRAcetam 500 MG/5 ML LIQUID UDC ONE (07:38)
[2022-06-27] MEDS ORDERED: CHOLECALCIFEROL 1,000 UNIT TABLET ONE (07:39)
[2022-06-27] MEDS ORDERED: ASCORBIC ACID 500 MG TABLET ONE (07:39)
[2022-06-27] MEDS ORDERED: PANTOPRAZOLE SODIUM 40 MG VIAL ONE (07:40)
[2022-06-27] MEDS ORDERED: FUROSEMIDE 20 MG/2 ML VIAL ONE ×2 (07:40→10:21)
[2022-06-27 08:06] LABS: CREATININE 1.5 mg/dL (0.6-1.3); MAGNESIUM 2.1 mg/dL (1.8-2.4); PHOSPHOROUS 3.3 mg/dL (2.5-4.9); POTASSIUM 3.5 mmol/L (3.5-5.1)
[2022-06-27] MEDS: MIRALAX 17 GM POWD.PACK GT SCH (08:20)
[2022-06-27] MEDS: PANTOPRAZOLE SODIUM 40 MG VIAL IV SCH (08:20)
[2022-06-27] MEDS: ASCORBIC ACID 500 MG TABLET GT SCH (08:21)
[2022-06-27] MEDS: levETIRAcetam 500 MG/5 ML LIQUID UDC GT SCH (08:21)
[2022-06-27] MEDS: CHOLECALCIFEROL 1,000 UNIT TABLET GT SCH (08:21)
[2022-06-27] MEDS: FUROSEMIDE 20 MG/2 ML VIAL IV SCH (08:21)
[2022-06-27] MEDS: MULTIVIT, IRON, MIN NO. 8, FA TABLET GT SCH (08:29)
--- NOTE | 2022-06-27 09:00 | NUR ---
Pulmonary services, Dr. Garcia in the unit report given and asked if pt. can have pulmonary clearance to be down graded. As per his recommendation pt. can downgraded to MALATHI status if needed it.
--- NOTE | 2022-06-27 09:16 | NUR ---
Sonography Technologist Dr. Izuqierdo in the unit to follow up on pt.
[2022-06-27] MEDS ORDERED: FUROSEMIDE 20 MG/2 ML VIAL IV ONE (09:45)
--- NOTE | 2022-06-27 10:17 | NUR ---
Attending Eliz Mercado in the unit to follow up on pt. report given and pt. can be now down-graded to MALATHI status.
[2022-06-27] MEDS ORDERED: ENOXAPARIN SODIUM 40 MG/0.4 ML DISP.SYRIN SQ ONE (10:21)
[2022-06-27] MEDS: ENOXAPARIN SODIUM 40 MG/0.4 ML DISP.SYRIN SQ SCH (10:24)
[2022-06-27] MEDS ORDERED: KETOROLAC TROMETHAMINE 15 MG INJ ONE (12:03)
[2022-06-27 14:38] LABS: BAND % (MANUAL) 0 % (0-10); LYMPHOCYTES % (MANUAL) 14 % (20-40); NEUTROPHILS % (MANUAL) 59 % (42-75)
[2022-06-27 14:39] LABS: BASOPHILS % (MANUAL) 0 % (0-2); BLASTS, MANUAL % 0 % (0-0); EOSINOPHILS % (MANUAL) 14 % (0-8); METAMYELOCYTES % 0 % (0-1); MONOCYTES % (MANUAL) 13 % (2-10); MYELOCYTES % 0 % (0-0); PROMYELOCYTES % 0 %; REACTIVE LYMPHOCYTES 0 % (0-0)
--- NOTE | 2022-06-27 18:20 | NUR ---
At this time pt. taken up to room 312 on sinus bradycardia upon arrival to room and situating pt. in the room when attached to telemetry box readings of 38-60 back and forth obtained. Report given to Luis Alfredo Osborn. Attending Roxie Mercado at the nurses's station at this time and She was made aware of readings. Patient got transported with the help of RT team.
--- NOTE | 2022-06-27 18:20 | NUR ---
received per bed from transition unit as UCU status, nonverbal, with tracheostomy to vent with the following settings, AC 26, TV 450, FI02 35%, PEEP 5, GT- tube fdg infusing Vital AF 40ml/hr, IV on the right IJ- intact- no swelling/redness noted on site, with spangler draining yellow uring, on first step mattress, anasarca noted, arms elevated on pillows, tele SB 40, right ankle dsg dry and intact, will continue to monitor
[2022-06-27] MEDS: CEFTAZIDIME 1 G in IV DEXTROSE 5% 50 ML IV SCH (20:30)
[2022-06-27] MEDS ORDERED: FUROSEMIDE 40 MG/4 ML VIAL IV SCH (21:00)
--- NOTE | 2022-06-27 21:00 | NUR ---
received pt on bed with on going GTF; on vent; pt 's temp 90F rectally, warming measures done including Nik Hugger per SUPPORT TEACHER Eliz Mercado; blood pressure is 90/60; referred to Dr Jamil; parameters given for Lasix IVP; suctioned trache and oral secretions; HHN per RT; will continue to monitor;
[2022-06-28] MEDS: LINEZOLID IV 600 MG in PREMIXED 1 EACH IV SCH ×2 (01:24→13:53)
[2022-06-28] MEDS: ALBUTEROL SULFATE 1.25 MG/3 ML NEBU NEB SCH ×4 (01:36→19:37)
[2022-06-28] MEDS: IPRATROPIUM BROMIDE 0.5 MG/2.5 ML NEBU NEB SCH ×4 (01:36→19:37)
[2022-06-28 04:00] VITALS: BP 105/49
[2022-06-28] MEDS: CEFTAZIDIME 1 G in IV DEXTROSE 5% 50 ML IV SCH ×3 (04:01→20:26)
[2022-06-28] MEDS: MIDODRINE HCL 5 MG TABLET PO SCH ×3 (05:39→21:50)
[2022-06-28 06:56] LABS: MAGNESIUM 1.9 mg/dL (1.8-2.4); PHOSPHOROUS 3.6 mg/dL (2.5-4.9)
[2022-06-28 07:01] LABS: HEMATOCRIT 26.4 % (36.7-47.1); MEAN CORPUSCULAR HEMOGLOBIN 31.6 uug (23.8-33.4); PLATELET COUNT (AUTO) 138 K/uL (152-348)
[2022-06-28 07:04] LABS: CREATININE 1.7 mg/dL (0.6-1.3); POTASSIUM 3.2 mmol/L (3.5-5.1)
--- NOTE | 2022-06-28 07:30 | NUR ---
MORNING REPORT: 1) MENTAL STATE: AO x0 - opens eyes, non - verbal or able to express needs. 2) BREATHING: Trach insitu - PRN suctioning, Vent AC 26, fiO2 355, Tidal Vol 450, PEP 5, no sign of distress or need suctioning. 3) CIRCULATION:Telemetry monitored and rhythm Sinus manny in the 40s - patient' baseline. 4) EATING & DRINKING: Patient has a G-Tube- Vital AF 1.2 running @ 40ml/hr, H2O Q6 as prescribed. 5) ELIMINATION: (i) Rice catheter insitu - drained 300ml overnight, slightly concentrated, no sediments, or odor observed. (ii) Small bowel movement during the night 6) SKIN: Refer to PIC in patient's notes folder 7) VITALS: (ii)Tends to have a low Bp, on Midodrine which has been increased to 100mg, and omit lasix if systolic is below 100. (i) The rest of the vitals within normal limits 8) PLAN: (i) Maintain safety (ii) provide all care
[2022-06-28 07:45] VITALS: BP 95/39
[2022-06-28] MEDS ORDERED: POTASSIUM CHLORIDE 20 MEQ POWDER PACKET GT ONE (07:45)
--- NOTE | 2022-06-28 08:25 | NUR ---
9AM ANTI-COAGULANT (LOVENOX): 1) Spoke to Andre pharmacist re: platelet 138 should morning Lovenox be administered? 2) Pharmacist Andre - advised to administered - parameters are 100 and up, and if not bleeding. 3) Therefore, morning dose will be administered as prescribed.
[2022-06-28 08:45] LABS: BAND % (MANUAL) 2 % (0-10); NEUTROPHILS % (MANUAL) 66 % (42-75)
[2022-06-28 08:46] LABS: BASOPHILS % (MANUAL) 0 % (0-2); BLASTS, MANUAL % 0 % (0-0); EOSINOPHILS % (MANUAL) 2 % (0-8); LYMPHOCYTES % (MANUAL) 19 % (20-40); METAMYELOCYTES % 0 % (0-1); MONOCYTES % (MANUAL) 10 % (2-10); MYELOCYTES % 0 % (0-0); PROMYELOCYTES % 0 %; REACTIVE LYMPHOCYTES 0 % (0-0)
[2022-06-28] MEDS: FUROSEMIDE 20 MG/2 ML VIAL IV SCH ×2 (09:00→20:31)
[2022-06-28 09:06] LABS: ABG BASE EXCESS -0.7 mmol/L; ABG HCO3 23.6 mmol/L; ABG PCO2 37.9 mmHg (35.0-45.0); ABG PH 7.413 (7.350-7.450); ABG PO2 82.4 mmHg (75.0-100.0); ABG SITE RIGHT RADIAL; ABG TOTAL HEMOGLOBIN 10.2 G/dL (13.5-18.0); COHb 0.3 % (0.5-1.5); MetHb 0.1 % (0.0-1.5); O2Hb 95.2 % (94.0-97.0); VENT MODE VENT - A/C; VT, ABG 450 mL
[2022-06-28] MEDS: MIRALAX 17 GM POWD.PACK GT SCH (09:06)
[2022-06-28] MEDS: levETIRAcetam 500 MG/5 ML LIQUID UDC GT SCH (09:07)
[2022-06-28] MEDS: MULTIVIT, IRON, MIN NO. 8, FA TABLET GT SCH (09:08)
[2022-06-28] MEDS: CHOLECALCIFEROL 1,000 UNIT TABLET GT SCH (09:08)
[2022-06-28] MEDS: ASCORBIC ACID 500 MG TABLET GT SCH (09:09)
--- NOTE | 2022-06-28 09:12 | NUR ---
LASIX OMITTED - BP SYSTOLIC BELOW 100 (95)
[2022-06-28] MEDS: ENOXAPARIN SODIUM 40 MG/0.4 ML DISP.SYRIN SQ SCH (09:28)
--- NOTE | 2022-06-28 09:30 | NUR ---
PEG FEED: 1) New bottle of feed commenced and running as per regime. 2) No sign of aspiration, distress, or vomiting observed. 3) 50ML residual obtained
--- NOTE | 2022-06-28 11:00 | NUR ---
1) PRESSURE AREA CARE: - POSITION CHANGED, PATIENT SOILED, CLEANED AND DRY. No new orders for the diarrhea.
[2022-06-28 11:38] VITALS: BP 115/49
[2022-06-28] MEDS: PANTOPRAZOLE SODIUM 40 MG VIAL IV SCH (13:53)
--- NOTE | 2022-06-28 15:17 | NUR ---
HAILE consult requested for 57 year old male patient admitted to the hospital for respiratory failure. accounting managerGm and HAILE attempted to call the patient's , Neva Green ([phone]) but her phone is not in service. accounting managerGm and HAILE left a voicemail for the patient's son, Sam Reyes ([phone]). HAILE will continue to follow up.
[2022-06-28 16:02] VITALS: BP 106/38
--- NOTE | 2022-06-28 16:58 | NUR ---
PULMONARY REVIEW: 1) Reviewed this evening by MD. 2) No new orders. 3) Continue treatment as prescribed.
--- NOTE | 2022-06-28 16:59 | NUR ---
WARN BLANKET DISCONTINUED - TEMPERATURE WITHIN NORMAL LIMITS
--- NOTE | 2022-06-28 18:47 | NUR ---
HANDOVER TO NIGHT NURSES: 1) No change in condition 2) Will endorse care to night staff who will continue to assess, plan, implement and treat accordingly
--- NOTE | 2022-06-28 19:30 | NUR ---
rounds made patient in bed non verbal ,trach to vent Ginnyley no 8 vent settings are ac 26,fio2 35% tidal volume 450 and peep of 5, no respiratory distress noted tolerating vent settings .TF vital 1.2 at 40 ml via the peg tube .f/c to bsd with hob patient with generalized edema bilateral upper and lower extremities elevated with pillows . tko ivf via the right subclavian TLC site CDI HANDOVER TO NIGHT NURSES: 1) No change in condition 2) Will endorse care to night staff who will continue to assess, plan, implement and treat accordingly
--- NOTE | 2022-06-28 20:00 | NUR ---
TF vital 1.2 at 40 ml /hr increase to 50 ml goal is 65 ml/hour as tolerated.
[2022-06-28 20:39] VITALS: BP 105/49
--- NOTE | 2022-06-28 22:30 | NUR ---
turned and reposition patient ,offloaded back with pillow bilateral upper and lower extremities elevated with pillow .hob up , aspiration precaution observed suction patient via the trach .
[2022-06-29 00:03] VITALS: BP 107/58
[2022-06-29] MEDS: ALBUTEROL SULFATE 1.25 MG/3 ML NEBU NEB SCH ×4 (00:43→20:58)
[2022-06-29] MEDS: IPRATROPIUM BROMIDE 0.5 MG/2.5 ML NEBU NEB SCH ×4 (00:43→20:58)
--- NOTE | 2022-06-29 01:29 | NUR ---
incontinent of stool ,moderate in amt soft liquid in consistency , changed soiled linens and gown . turned and reposition Mepilex placed to sacral area and Mepilex to bilateral heels .hob up and suction patient via the mouth and trach .
[2022-06-29] MEDS: LINEZOLID IV 600 MG in PREMIXED 1 EACH IV SCH ×2 (01:45→14:24)
[2022-06-29] MEDS: CEFTAZIDIME 1 G in IV DEXTROSE 5% 50 ML IV SCH ×3 (03:25→20:22)
[2022-06-29 04:00] VITALS: BP 99/50
--- NOTE | 2022-06-29 05:30 | NUR ---
am labs collected from the right subclavian TLC done aseptically given to the botany laboratory assistant .
[2022-06-29] MEDS: MIDODRINE HCL 5 MG TABLET PO SCH ×3 (05:57→22:14)
--- NOTE | 2022-06-29 06:00 | NUR ---
patient tolerated TF now at goal 65 ml/hour .
[2022-06-29 06:49] LABS: HEMATOCRIT 28.1 % (36.7-47.1); MEAN CORPUSCULAR HEMOGLOBIN 31.8 uug (23.8-33.4); MEAN CORPUSCULAR VOLUME 97.4 fL (73.0-96.2); PLATELET COUNT (AUTO) 208 K/uL (152-348)
[2022-06-29 07:40] VITALS: BP 89/48
[2022-06-29 07:43] LABS: POTASSIUM 3.5 mmol/L (3.5-5.1)
[2022-06-29] MEDS: MULTIVIT, IRON, MIN NO. 8, FA TABLET GT SCH (08:35)
[2022-06-29] MEDS: ASCORBIC ACID 500 MG TABLET GT SCH (08:35)
[2022-06-29] MEDS: levETIRAcetam 500 MG/5 ML LIQUID UDC GT SCH (08:35)
[2022-06-29] MEDS: MIRALAX 17 GM POWD.PACK GT SCH (08:35)
[2022-06-29] MEDS: CHOLECALCIFEROL 1,000 UNIT TABLET GT SCH (08:36)
[2022-06-29] MEDS: FUROSEMIDE 20 MG/2 ML VIAL IV SCH ×2 (08:36→20:22)
[2022-06-29] MEDS: ENOXAPARIN SODIUM 40 MG/0.4 ML DISP.SYRIN SQ SCH (08:48)
[2022-06-29] MEDS: PANTOPRAZOLE SODIUM 40 MG VIAL IV SCH (08:56)
[2022-06-29 10:44] LABS: BAND % (MANUAL) 0 % (0-10); EOSINOPHILS % (MANUAL) 26 % (0-8); LYMPHOCYTES % (MANUAL) 17 % (20-40); MONOCYTES % (MANUAL) 5 % (2-10); NEUTROPHILS % (MANUAL) 48 % (42-75)
[2022-06-29 10:45] LABS: BASOPHILS % (MANUAL) 0 % (0-2); BLASTS, MANUAL % 0 % (0-0); METAMYELOCYTES % 0 % (0-1); MYELOCYTES % 0 % (0-0); PROMYELOCYTES % 0 %; REACTIVE LYMPHOCYTES 4 % (0-0)
[2022-06-29 11:54] VITALS: BP 108/53
--- NOTE | 2022-06-29 12:25 | NUR ---
pt hypothermic. fam veronicaer was used. will recheck in 1hr.
[2022-06-29 16:08] VITALS: BP 114/45
--- NOTE | 2022-06-29 18:40 | NUR ---
per CM pt family agreeable with comfort care measure. but no updated POLST yet. f/u with CM.
--- NOTE | 2022-06-29 18:49 | NUR ---
pt aox0. non verbal. gen edema noted. gen body rash noted. pt on mech vent. still sinus manny on tele 40-50 HR. pt still on abx tx. tolerated feeding well no residual. q2hr reposition done. heel float all the time. prn suction done. fc patent and draining well. loose stool noted. seizure precaution maintained. all needs attended. call light with in reach.
[2022-06-29] MEDS: VITAL AF 1.2 1,000 ML LIQUID GT PRN (19:21)
[2022-06-29 20:00] VITALS: BP 90/28
[2022-06-30] VITALS: BP 91/34
[2022-06-30] MEDS: ALBUTEROL SULFATE 1.25 MG/3 ML NEBU NEB SCH ×4 (01:40→20:14)
[2022-06-30] MEDS: IPRATROPIUM BROMIDE 0.5 MG/2.5 ML NEBU NEB SCH ×4 (01:40→20:14)
[2022-06-30] MEDS: LINEZOLID IV 600 MG in PREMIXED 1 EACH IV SCH ×2 (01:43→14:00)
[2022-06-30] MEDS: VITAL AF 1.2 1,000 ML LIQUID GT PRN (03:00)
[2022-06-30 04:00] VITALS: BP 85/39
[2022-06-30] MEDS: CEFTAZIDIME 1 G in IV DEXTROSE 5% 50 ML IV SCH ×3 (05:35→19:43)
[2022-06-30] MEDS: MIDODRINE HCL 5 MG TABLET PO SCH ×3 (05:40→21:56)
--- NOTE | 2022-06-30 06:06 | NUR ---
Pt rested well in between care; pt now normothermic and off BairHugger; pt's BP remains low in the SBP 80/90s, remains on Midodrine and Lasix was held last night; incontinence care done; oral care done;; suctioned secretions via trache and orally repositioned q2h; hourly rounding done;
[2022-06-30 06:23] LABS: ABG BASE EXCESS 1.3 mmol/L; ABG HCO3 27.8 mmol/L; ABG PCO2 53.9 mmHg (35.0-45.0); ABG PH 7.331 (7.350-7.450); ABG PO2 80.9 mmHg (75.0-100.0); ABG SITE RIGHT RADIAL; ABG TOTAL HEMOGLOBIN 10.3 G/dL (13.5-18.0); COHb 0.3 % (0.5-1.5); MetHb 0.2 % (0.0-1.5); O2Hb 94.9 % (94.0-97.0); VENT MODE VENT - A/C; VT, ABG 450 mL
[2022-06-30 07:20] LABS: HEMATOCRIT 29.2 % (36.7-47.1); MEAN CORPUSCULAR HEMOGLOBIN 32.3 uug (23.8-33.4); MEAN CORPUSCULAR VOLUME 97.9 fL (73.0-96.2); PLATELET COUNT (AUTO) 270 K/uL (152-348)
[2022-06-30 07:34] LABS: CREATININE 1.8 mg/dL (0.6-1.3); POTASSIUM 3.8 mmol/L (3.5-5.1)
[2022-06-30 07:44] LABS: MAGNESIUM 2.1 mg/dL (1.8-2.4); PHOSPHOROUS 3.3 mg/dL (2.5-4.9)
[2022-06-30 07:55] VITALS: BP 100/45
--- NOTE | 2022-06-30 07:58 | NUR ---
Received pt. on cardiac tech NSR. AAOx4 sbp within desired limits. On NC saturation of 98%. pt. with c/of feeling short of breath. Saturation of 96-97%. Pt. NPO as ordered. Awaiting for CT abdomen consent obtained by night nurse. Iv line patent. SPC draining clear urine. Addendum: 06/30/22 at 0849 by QUINTON CASTELLON RN the above note was intended for another pt. user error.
[2022-06-30] MEDS: MIRALAX 17 GM POWD.PACK GT SCH (09:00)
[2022-06-30] MEDS: ASCORBIC ACID 500 MG TABLET GT SCH (09:19)
[2022-06-30] MEDS: CHOLECALCIFEROL 1,000 UNIT TABLET GT SCH (09:19)
[2022-06-30] MEDS: levETIRAcetam 500 MG/5 ML LIQUID UDC GT SCH (09:19)
[2022-06-30] MEDS: predniSONE 10 MG TABLET GT SCH (09:19)
[2022-06-30] MEDS: MULTIVIT, IRON, MIN NO. 8, FA TABLET GT SCH (09:19)
[2022-06-30] MEDS: FUROSEMIDE 20 MG/2 ML VIAL IV SCH ×2 (09:20→20:10)
[2022-06-30] MEDS: ENOXAPARIN SODIUM 40 MG/0.4 ML DISP.SYRIN SQ SCH (09:26)
[2022-06-30] MEDS: PANTOPRAZOLE ORAL SUSPENSION 40 MG SUSPDR.PKT GT SCH (09:33)
[2022-06-30 11:38] LABS: BAND % (MANUAL) 0 % (0-10); BASOPHILS % (MANUAL) 0 % (0-2); BLASTS, MANUAL % 0 % (0-0); EOSINOPHILS % (MANUAL) 15 % (0-8); LYMPHOCYTES % (MANUAL) 21 % (20-40); METAMYELOCYTES % 0 % (0-1); MONOCYTES % (MANUAL) 5 % (2-10); MYELOCYTES % 0 % (0-0); NEUTROPHILS % (MANUAL) 59 % (42-75); PROMYELOCYTES % 0 %; REACTIVE LYMPHOCYTES 0 % (0-0)
[2022-06-30 11:52] VITALS: BP 102/50
--- NOTE | 2022-06-30 14:43 | NUR ---
per CM pt is agreeable to comfort measure. aware. md will talked to family brandy for changed of code status. pt remains full code.
[2022-06-30 16:15] VITALS: BP 123/45
--- NOTE | 2022-06-30 18:58 | NUR ---
no apparent change today. pt rested well in between care. gen. edema and body rash still noted. no respiratory distress noted. doing well with vent setting. still sinus manny on monitor. vitals wnl. pt still have loose BM. R 3 lumen lumen IJ intact and paten. all need attended. safety measure in placed.
[2022-07-01] MEDS: IPRATROPIUM BROMIDE 0.5 MG/2.5 ML NEBU NEB SCH ×4 (00:01→20:40)
[2022-07-01] MEDS: ALBUTEROL SULFATE 1.25 MG/3 ML NEBU NEB SCH ×4 (00:02→20:41)
[2022-07-01] MEDS: VITAL AF 1.2 1,000 ML LIQUID GT PRN ×2 (00:52→09:42)
[2022-07-01] MEDS: LINEZOLID IV 600 MG in PREMIXED 1 EACH IV SCH (00:52)
[2022-07-01] MEDS: CEFTAZIDIME 1 G in IV DEXTROSE 5% 50 ML IV SCH ×3 (04:16→19:44)
[2022-07-01] MEDS: MIDODRINE HCL 5 MG TABLET PO SCH ×3 (05:09→21:23)
--- NOTE | 2022-07-01 05:41 | NUR ---
uneventful night; Patient resting; tolerated GTF without residuals and water flushes; tolerates current vent settings; remains having anasarca; oral care done; trache care done; suctioned secretions via trache and orally; aspiration precautions maintained; repositioned patient q2h; incontinence care done; care rounding q1h;
[2022-07-01 05:47] LABS: HEMATOCRIT 26.4 % (36.7-47.1); MEAN CORPUSCULAR VOLUME 97.8 fL (73.0-96.2); PLATELET COUNT (AUTO) 256 K/uL (152-348)
[2022-07-01 05:48] LABS: CREATININE 1.4 mg/dL (0.6-1.3); POTASSIUM 3.5 mmol/L (3.5-5.1)
--- NOTE | 2022-07-01 08:00 | NUR ---
RECEIVED PATIENT ON A MECHANICAL VENT VIA TRACH SHILEY#6 SETS AT 26-450-35-5 SATURATING 98%, NO SS OF ACUTE PAIN OR DISTRESS ON CONTINUOUS PULSE OXIMETRY, MOVES AND JERKS ON MOVEMENT FROM SIDE TO SIDE, HOB ELEVATED 35 DEGREES. STARTED ON TUBE FEEDING NO RESIDUALS NOTED. REMAINS SB ON MONITOR..
[2022-07-01 09:26] LABS: EOSINOPHILS % (MANUAL) 21 % (0-8); LYMPHOCYTES % (MANUAL) 18 % (20-40); MONOCYTES % (MANUAL) 7 % (2-10); NEUTROPHILS % (MANUAL) 54 % (42-75)
[2022-07-01] MEDS: predniSONE 10 MG TABLET GT SCH (09:30)
[2022-07-01] MEDS: MULTIVIT, IRON, MIN NO. 8, FA TABLET GT SCH (09:30)
[2022-07-01] MEDS: CHOLECALCIFEROL 1,000 UNIT TABLET GT SCH (09:30)
[2022-07-01] MEDS: MIRALAX 17 GM POWD.PACK GT SCH (09:30)
[2022-07-01] MEDS: PANTOPRAZOLE ORAL SUSPENSION 40 MG SUSPDR.PKT GT SCH (09:30)
[2022-07-01] MEDS: levETIRAcetam 500 MG/5 ML LIQUID UDC GT SCH (09:30)
[2022-07-01] MEDS: ASCORBIC ACID 500 MG TABLET GT SCH (09:30)
[2022-07-01] MEDS: REMEDY ESSENTIAL ZINC PASTE 113 GM TOP PRN (09:31)
[2022-07-01] MEDS: ENOXAPARIN SODIUM 40 MG/0.4 ML DISP.SYRIN SQ SCH (09:32)
[2022-07-01] MEDS: FUROSEMIDE 20 MG/2 ML VIAL IV SCH ×2 (09:42→20:19)
[2022-07-01 12:00] VITALS: BP 92/47
--- NOTE | 2022-07-01 12:00 | NUR ---
HOSPITALIST MADE AWARE OF AGREEING COMFORT CARE PER MESSENGER OFFICE NOTES. HOSPITALIST WILL FOLLOW-UP. CONTINUE WITH IV ANTIBIOTIC AND PLAN OF CARE.
[2022-07-01] MEDS: LINEZOLID 600 MG TABLET GT SCH ×2 (13:06→22:12)
[2022-07-01 16:00] VITALS: BP 96/52
--- NOTE | 2022-07-01 17:53 | NUR ---
HOSPITALIST TRIED TO CALL FAMILY REGARDING COMFORT MEASURE EVENT MARKETING COORDINATOR NOTIFIED.
[2022-07-01 20:00] VITALS: BP 103/52
--- NOTE | 2022-07-01 20:00 | NUR ---
received pt on bed with trache to vent: AC 26,TV 450, FiO2 35 and PEEP 5; on going GTF; repositioned for comfort; oral care done
[2022-07-02] VITALS: BP 111/56
[2022-07-02] MEDS: IPRATROPIUM BROMIDE 0.5 MG/2.5 ML NEBU NEB SCH ×4 (00:38→19:06)
[2022-07-02] MEDS: ALBUTEROL SULFATE 1.25 MG/3 ML NEBU NEB SCH ×4 (00:38→19:06)
[2022-07-02] MEDS: VITAL AF 1.2 1,000 ML LIQUID GT PRN ×2 (01:56→23:14)
[2022-07-02 04:00] VITALS: BP 112/52
[2022-07-02] MEDS: CEFTAZIDIME 1 G in IV DEXTROSE 5% 50 ML IV SCH ×3 (05:02→19:56)
[2022-07-02] MEDS: MIDODRINE HCL 5 MG TABLET PO SCH ×3 (05:42→21:30)
--- NOTE | 2022-07-02 05:54 | NUR ---
END OF SHIFT REPORT Sachin rested well in between care; incontinence care done; CHG bath done; GT has no residual ; GTF will be off at 0600 and will resume at 0800; trache care done per RT inluding HHN; oral care done; suctioned oral and trache care done; dressing to R foot done by day shift RN and is intact; hourly rounding done and repositioned q2h; continue to monitor; continue plan of care
[2022-07-02 07:00] LABS: HEMATOCRIT 25.9 % (36.7-47.1); MEAN CORPUSCULAR HEMOGLOBIN 31.6 uug (23.8-33.4); MEAN CORPUSCULAR VOLUME 97.6 fL (73.0-96.2); PLATELET COUNT (AUTO) 259 K/uL (152-348)
[2022-07-02 07:00] LABS: CREATININE 1.4 mg/dL (0.6-1.3); POTASSIUM 3.8 mmol/L (3.5-5.1)
--- NOTE | 2022-07-02 07:20 | NUR ---
Received pt. under telemetry monitoring and on SB rate in the mid-to upper 40's especially with stimulation. SBP in the 90's -110's. On mechanical ventilator shiley 8 A/C 26, tv 450, FIO2 35%. with saturation of 97%. Oral care and suctioning provided, pt. tolerated fairly. G-T patent with feeding to be resumed, and running at goal therapy. Rice to gravity. TLC patent, Will continue with care plan.
[2022-07-02 07:50] VITALS: BP 148/49
[2022-07-02] MEDS: predniSONE 10 MG TABLET GT SCH (09:03)
[2022-07-02] MEDS: MIRALAX 17 GM POWD.PACK GT SCH (09:03)
[2022-07-02] MEDS: FUROSEMIDE 20 MG/2 ML VIAL IV SCH (09:03)
[2022-07-02] MEDS: levETIRAcetam 500 MG/5 ML LIQUID UDC GT SCH (09:03)
[2022-07-02] MEDS: PANTOPRAZOLE ORAL SUSPENSION 40 MG SUSPDR.PKT GT SCH (09:04)
[2022-07-02] MEDS: ASCORBIC ACID 500 MG TABLET GT SCH (09:04)
[2022-07-02] MEDS: CHOLECALCIFEROL 1,000 UNIT TABLET GT SCH (09:04)
[2022-07-02] MEDS: LINEZOLID 600 MG TABLET GT SCH (09:04)
[2022-07-02] MEDS: MULTIVIT, IRON, MIN NO. 8, FA TABLET GT SCH (09:05)
[2022-07-02] MEDS: ENOXAPARIN SODIUM 40 MG/0.4 ML DISP.SYRIN SQ SCH (09:06)
[2022-07-02 12:00] VITALS: BP 112/65
[2022-07-02 16:00] VITALS: BP 121/57
[2022-07-02 20:00] VITALS: BP 104/56
[2022-07-03] VITALS: BP 109/46
[2022-07-03] MEDS: ALBUTEROL SULFATE 1.25 MG/3 ML NEBU NEB SCH ×4 (00:52→19:40)
[2022-07-03] MEDS: IPRATROPIUM BROMIDE 0.5 MG/2.5 ML NEBU NEB SCH ×4 (00:52→19:40)
[2022-07-03] MEDS: CEFTAZIDIME 1 G in IV DEXTROSE 5% 50 ML IV SCH ×3 (03:42→20:03)
[2022-07-03 04:00] VITALS: BP 118/64
[2022-07-03] MEDS: MIDODRINE HCL 5 MG TABLET PO SCH ×3 (05:13→21:40)
--- NOTE | 2022-07-03 05:18 | NUR ---
Patient rested well in between care; dressing to central line done; dressing to rt foot dressing done; hourly dressing done; tolerated GTF; AM care done; continue to monitor; continue plan of care
[2022-07-03 06:50] LABS: HEMATOCRIT 26.1 % (36.7-47.1); MEAN CORPUSCULAR HEMOGLOBIN 32.2 uug (23.8-33.4); MEAN CORPUSCULAR VOLUME 97.9 fL (73.0-96.2); PLATELET COUNT (AUTO) 271 K/uL (152-348)
[2022-07-03 07:23] LABS: PHOSPHOROUS 2.3 mg/dL (2.5-4.9)
[2022-07-03 07:28] LABS: CREATININE 1.2 mg/dL (0.6-1.3); POTASSIUM 3.6 mmol/L (3.5-5.1)
--- NOTE | 2022-07-03 07:30 | NUR ---
Trach to vent with settings of AC 26, TV 450, FIO2 35%, PEEP 5 with O2 sat of 98%. Trach secretions suctioned. on moderate high back rest. G Tube intact. Rice catheter to drainage bag.
[2022-07-03 07:52] VITALS: BP 116/62
[2022-07-03 08:20] LABS: ABG BASE EXCESS 0.4 mmol/L; ABG HCO3 27.5 mmol/L; ABG PCO2 57.3 mmHg (35.0-45.0); ABG PH 7.299 (7.350-7.450); ABG SITE RIGHT RADIAL; COHb 0.1 % (0.5-1.5); O2Hb 87.3 % (94.0-97.0); VENT MODE VENT - A/C; VT, ABG 450 mL
[2022-07-03] MEDS: MIRALAX 17 GM POWD.PACK GT SCH (09:00)
[2022-07-03] MEDS: predniSONE 10 MG TABLET GT SCH (10:35)
[2022-07-03] MEDS: levETIRAcetam 500 MG/5 ML LIQUID UDC GT SCH (10:35)
[2022-07-03] MEDS: PANTOPRAZOLE ORAL SUSPENSION 40 MG SUSPDR.PKT GT SCH (10:35)
[2022-07-03] MEDS: MULTIVIT, IRON, MIN NO. 8, FA TABLET GT SCH (10:36)
[2022-07-03] MEDS: CHOLECALCIFEROL 1,000 UNIT TABLET GT SCH (10:37)
[2022-07-03] MEDS: ASCORBIC ACID 500 MG TABLET GT SCH (10:37)
[2022-07-03] MEDS: ENOXAPARIN SODIUM 40 MG/0.4 ML DISP.SYRIN SQ SCH (10:38)
[2022-07-03 12:00] VITALS: BP 132/74
--- NOTE | 2022-07-03 12:10 | NUR ---
To CT scan via bed accompanied by RT
[2022-07-03] MEDS ORDERED: NEUTRA PHOS PACKET GT ONE (15:30)
[2022-07-03 16:00] VITALS: BP 120/60
--- NOTE | 2022-07-03 16:00 | NUR ---
With BM, incontinence care and bed bath given. Wound care done as ordered. Oral and trach care done. Repositioned comfortably.
[2022-07-03 16:38] LABS: BAND % (MANUAL) 0 % (0-10); LYMPHOCYTES % (MANUAL) 17 % (20-40); MONOCYTES % (MANUAL) 3 % (2-10); NEUTROPHILS % (MANUAL) 62 % (42-75)
[2022-07-03 16:39] LABS: BASOPHILS % (MANUAL) 0 % (0-2); BLASTS, MANUAL % 0 % (0-0); EOSINOPHILS % (MANUAL) 18 % (0-8); METAMYELOCYTES % 0 % (0-1); MYELOCYTES % 0 % (0-0); PROMYELOCYTES % 0 %; REACTIVE LYMPHOCYTES 0 % (0-0)
[2022-07-04] VITALS: BP 119/59
[2022-07-04] MEDS: IPRATROPIUM BROMIDE 0.5 MG/2.5 ML NEBU NEB SCH ×4 (00:54→20:24)
[2022-07-04] MEDS: ALBUTEROL SULFATE 1.25 MG/3 ML NEBU NEB SCH ×4 (00:54→20:25)
[2022-07-04] MEDS: CEFTAZIDIME 1 G in IV DEXTROSE 5% 50 ML IV SCH ×3 (03:28→19:55)
[2022-07-04 04:00] VITALS: BP 119/55
[2022-07-04] MEDS: MIDODRINE HCL 5 MG TABLET PO SCH ×3 (06:23→22:35)
[2022-07-04 06:45] LABS: HEMATOCRIT 24.5 % (36.7-47.1); PLATELET COUNT (AUTO) 270 K/uL (152-348)
[2022-07-04 07:22] LABS: MAGNESIUM 2.3 mg/dL (1.8-2.4); PHOSPHOROUS 2.7 mg/dL (2.5-4.9); POTASSIUM 3.7 mmol/L (3.5-5.1)
--- NOTE | 2022-07-04 07:30 | NUR ---
PATIENT REMAINS ON MECHANICAL VENT S8-AC 26-450-35-5 SATURATING 97-98%, NO SS OF DISTRESS OR PAIN.. CONTINUE WITH FEEDING AND IV ANTIBIOTIC. DC PLAN INITIATED. SEE ENGINEERING AGENT NOTES.
[2022-07-04 07:46] VITALS: BP 118/57
[2022-07-04] MEDS: VITAL AF 1.2 1,000 ML LIQUID GT PRN (09:12)
[2022-07-04] MEDS: MIRALAX 17 GM POWD.PACK GT SCH (09:12)
[2022-07-04] MEDS: predniSONE 10 MG TABLET GT SCH (09:12)
[2022-07-04] MEDS: ASCORBIC ACID 500 MG TABLET GT SCH (09:12)
[2022-07-04] MEDS: MULTIVIT, IRON, MIN NO. 8, FA TABLET GT SCH (09:12)
[2022-07-04] MEDS: CHOLECALCIFEROL 1,000 UNIT TABLET GT SCH (09:13)
[2022-07-04] MEDS: PANTOPRAZOLE ORAL SUSPENSION 40 MG SUSPDR.PKT GT SCH (09:13)
[2022-07-04] MEDS: levETIRAcetam 500 MG/5 ML LIQUID UDC GT SCH (09:14)
[2022-07-04] MEDS: ENOXAPARIN SODIUM 40 MG/0.4 ML DISP.SYRIN SQ SCH (09:16)
[2022-07-04 11:35] VITALS: BP 115/64
--- NOTE | 2022-07-04 11:36 | NUR ---
SEEN BY MARIA L CARTWRIGHT AND NAKIA FOR FOLLOW-UP, UPDATED DC PLANNING WITH CANE BURNER NOTE. FOR NOW CONTINUE PLAN OF CARE ORDERED
[2022-07-04 16:49] VITALS: BP 113/65
--- NOTE | 2022-07-04 17:55 | NUR ---
PATIENT STATUS CHANGED TO MED/SURG CONTINUE WITH VENT SETTINGS ORDERED SATURATING 98%. TOLERATING FEEDING 65 MLS/HR, SB ON MONITOR . 43-55/MIN. AFEBRILE
[2022-07-04 21:13] VITALS: BP 107/53
[2022-07-05 00:17] VITALS: BP 105/48
[2022-07-05] MEDS: ALBUTEROL SULFATE 1.25 MG/3 ML NEBU NEB SCH ×4 (02:44→19:54)
[2022-07-05] MEDS: IPRATROPIUM BROMIDE 0.5 MG/2.5 ML NEBU NEB SCH ×4 (02:44→19:54)
[2022-07-05] MEDS: CEFTAZIDIME 1 G in IV DEXTROSE 5% 50 ML IV SCH ×3 (03:34→20:27)
[2022-07-05 04:31] VITALS: BP 117/62
[2022-07-05] MEDS: MIDODRINE HCL 5 MG TABLET PO SCH ×3 (05:39→22:08)
--- NOTE | 2022-07-05 06:23 | NUR ---
Patient rested well in between care; no acute distress; suctioned secretions via trache and orally; incontinence care done; hourly rounding done repositioned q2h; needs attended;
[2022-07-05 06:51] LABS: HEMATOCRIT 29.2 % (36.7-47.1); MEAN CORPUSCULAR HEMOGLOBIN 32.3 uug (23.8-33.4); MEAN CORPUSCULAR VOLUME 101.1 fL (73.0-96.2); PLATELET COUNT (AUTO) 334 K/uL (152-348)
--- NOTE | 2022-07-05 08:00 | NUR ---
RECEIVED PATIENT ON MECHANICAL VENT VIA TRACH [id number] SATURATING 97%. NO SS OF DISTRESS HOB ELEVATED 35 DEGREES. KEEP COMFORTABLE
[2022-07-05 08:06] LABS: MAGNESIUM 2.3 mg/dL (1.8-2.4); PHOSPHOROUS 3.9 mg/dL (2.5-4.9); POTASSIUM 3.5 mmol/L (3.5-5.1)
[2022-07-05] MEDS: MIRALAX 17 GM POWD.PACK GT SCH (09:00)
[2022-07-05] MEDS: levETIRAcetam 500 MG/5 ML LIQUID UDC GT SCH (09:14)
[2022-07-05] MEDS: CHOLECALCIFEROL 1,000 UNIT TABLET GT SCH (09:14)
[2022-07-05] MEDS: ASCORBIC ACID 500 MG TABLET GT SCH (09:14)
[2022-07-05] MEDS: MULTIVIT, IRON, MIN NO. 8, FA TABLET GT SCH (09:14)
[2022-07-05] MEDS: PANTOPRAZOLE ORAL SUSPENSION 40 MG SUSPDR.PKT GT SCH (09:15)
[2022-07-05] MEDS: ENOXAPARIN SODIUM 40 MG/0.4 ML DISP.SYRIN SQ SCH (09:16)
[2022-07-05] MEDS: VITAL AF 1.2 1,000 ML LIQUID GT PRN (09:34)
[2022-07-05] MEDS: predniSONE 10 MG TABLET GT SCH (09:34)
--- NOTE | 2022-07-05 10:00 | NUR ---
SEEN BY HOSPITALIST AND REFRIGERATION SUPERVISOR FOR FOLLOW-UP SEE NOTES. AWAITING TRANSFER, SEE EARLY INTERVENTION SCHOOL PSYCHOLOGIST NOTES
[2022-07-05 10:41] LABS: NEUTROPHILS % (MANUAL) 37 % (42-75)
[2022-07-05 10:42] LABS: BAND % (MANUAL) 0 % (0-10); BASOPHILS % (MANUAL) 0 % (0-2); BLASTS, MANUAL % 0 % (0-0); EOSINOPHILS % (MANUAL) 27 % (0-8); LYMPHOCYTES % (MANUAL) 30 % (20-40); METAMYELOCYTES % 0 % (0-1); MONOCYTES % (MANUAL) 6 % (2-10); MYELOCYTES % 0 % (0-0); PROMYELOCYTES % 0 %; REACTIVE LYMPHOCYTES 0 % (0-0)
[2022-07-05 11:40] VITALS: BP 105/53
--- NOTE | 2022-07-05 12:35 | NUR ---
NO ACUTE CHANGE FROM MORNING ASSESSMENT. CONTINUE WITH BREATHING TX PER RT. TOLERATING FEEDING WELL
[2022-07-05 15:43] VITALS: BP 110/54
--- NOTE | 2022-07-05 17:30 | NUR ---
NO ACUTE CHANGE FROM MORNING ASSESSMENT, PM CARE DONE. SAME VENT SETTINGS SATURATING 97%. AFEBRILE SB ON MONITOR. DISCHARGE PLANNING IN PLACE
--- NOTE | 2022-07-05 19:30 | NUR ---
Received patient lying in bed. Patient obtunded. In no apparent distress. Sinus manny on tele with HR of 55/min. Trach to vent in place. IJ intact and patent. GT feeding infusing. Rice catheter intact and draining via gravity. Safety measure initiated. Cpntinue to monitor.
[2022-07-05 20:00] VITALS: BP 120/62
[2022-07-06] VITALS: BP 120/64
[2022-07-06] MEDS: ALBUTEROL SULFATE 1.25 MG/3 ML NEBU NEB SCH ×4 (00:53→19:57)
[2022-07-06] MEDS: IPRATROPIUM BROMIDE 0.5 MG/2.5 ML NEBU NEB SCH ×4 (00:53→19:57)
[2022-07-06 04:32] VITALS: BP 116/61
[2022-07-06] MEDS: CEFTAZIDIME 1 G in IV DEXTROSE 5% 50 ML IV SCH ×3 (04:37→20:05)
--- NOTE | 2022-07-06 05:08 | NUR ---
In no acute distress. Suction secretions PRN and able to obtain whitish phlegm. No adverse reaction noted from IV antibiotics. Sinus manny on tele with HR of 55/min. Irce catheter intact and draining via gravity. Safety measure maintained.
[2022-07-06] MEDS: MIDODRINE HCL 5 MG TABLET PO SCH ×3 (05:43→22:23)
[2022-07-06 06:26] LABS: HEMATOCRIT 29.3 % (36.7-47.1); MEAN CORPUSCULAR VOLUME 99.4 fL (73.0-96.2); PLATELET COUNT (AUTO) 349 K/uL (152-348)
[2022-07-06 06:52] LABS: CREATININE 0.9 mg/dL (0.6-1.3); PHOSPHOROUS 4.3 mg/dL (2.5-4.9); POTASSIUM 4.2 mmol/L (3.5-5.1)
[2022-07-06 08:19] LABS: ABG BASE EXCESS 2.9 mmol/L; ABG PCO2 45.4 mmHg (35.0-45.0); ABG PH 7.408 (7.350-7.450); ABG PO2 87.9 mmHg (75.0-100.0); ABG SITE RIGHT RADIAL; ABG TOTAL HEMOGLOBIN 9.3 G/dL (13.5-18.0); COHb 0.1 % (0.5-1.5); MetHb 0.3 % (0.0-1.5); O2Hb 95.8 % (94.0-97.0); VENT MODE VENT - A/C; VT, ABG 450 mL
[2022-07-06] MEDS: MIRALAX 17 GM POWD.PACK GT SCH (09:00)
[2022-07-06] MEDS: predniSONE 10 MG TABLET GT SCH (09:23)
[2022-07-06] MEDS: levETIRAcetam 500 MG/5 ML LIQUID UDC GT SCH (09:23)
[2022-07-06] MEDS: PANTOPRAZOLE ORAL SUSPENSION 40 MG SUSPDR.PKT GT SCH (09:23)
[2022-07-06] MEDS: CHOLECALCIFEROL 1,000 UNIT TABLET GT SCH (09:24)
[2022-07-06] MEDS: MULTIVIT, IRON, MIN NO. 8, FA TABLET GT SCH (09:24)
[2022-07-06] MEDS: ENOXAPARIN SODIUM 40 MG/0.4 ML DISP.SYRIN SQ SCH (09:25)
[2022-07-06 09:32] VITALS: BP 111/54
--- NOTE | 2022-07-06 09:46 | NUR ---
pt is in no acute distress but hypothermic 96.1F. fam hugger is placed on.
[2022-07-06] MEDS: ASCORBIC ACID 500 MG TABLET GT SCH (10:13)
[2022-07-06 10:40] LABS: BAND % (MANUAL) 1 % (0-10); BASOPHILS % (MANUAL) 0 % (0-2); EOSINOPHILS % (MANUAL) 29 % (0-8); LYMPHOCYTES % (MANUAL) 21 % (20-40); MONOCYTES % (MANUAL) 10 % (2-10); NEUTROPHILS % (MANUAL) 33 % (42-75)
[2022-07-06 10:41] LABS: BLASTS, MANUAL % 0 % (0-0); METAMYELOCYTES % 0 % (0-1); MYELOCYTES % 0 % (0-0); PROMYELOCYTES % 0 %; REACTIVE LYMPHOCYTES 6 % (0-0)
[2022-07-06 11:34] VITALS: BP 119/52
[2022-07-06 16:38] VITALS: BP 105/43
--- NOTE | 2022-07-06 19:30 | NUR ---
Received patient lying in bed. Obtunded. In no apparent distress. Sinus manny on tele with HR of 57/min. Trach to vent in place. IJ intact and patent. GT feeding infusing. Rice catheter intact and draining via gravity. Safety measure initiated.
[2022-07-06 22:39] VITALS: BP 116/56
[2022-07-07] MEDS: IPRATROPIUM BROMIDE 0.5 MG/2.5 ML NEBU NEB SCH ×4 (00:32→20:20)
[2022-07-07] MEDS: ALBUTEROL SULFATE 1.25 MG/3 ML NEBU NEB SCH ×4 (00:32→20:20)
[2022-07-07 01:39] VITALS: BP 116/68
[2022-07-07 04:52] VITALS: BP 126/65
[2022-07-07] MEDS: MIDODRINE HCL 5 MG TABLET PO SCH ×3 (05:06→21:03)
--- NOTE | 2022-07-07 06:33 | NUR ---
No adverse effect noted from IV antibiotic. Suction secretions PRN and able to obtain small to moderate amount of whitish secretions. NSR on tele with HR of 60/min.
--- NOTE | 2022-07-07 07:30 | NUR ---
Obtunded, Trach to vent settings, AC 26, TV 450, PEEP 5 with O2 sat of 96%
[2022-07-07 07:34] LABS: MEAN CORPUSCULAR HEMOGLOBIN 32.4 uug (23.8-33.4); MEAN CORPUSCULAR VOLUME 98.2 fL (73.0-96.2); PLATELET COUNT (AUTO) 338 K/uL (152-348)
[2022-07-07 07:46] LABS: MAGNESIUM 1.8 mg/dL (1.8-2.4); PHOSPHOROUS 3.7 mg/dL (2.5-4.9); POTASSIUM 4.3 mmol/L (3.5-5.1)
[2022-07-07] MEDS: MULTIVIT, IRON, MIN NO. 8, FA TABLET GT SCH (08:55)
[2022-07-07] MEDS: MIRALAX 17 GM POWD.PACK GT SCH (08:55)
[2022-07-07] MEDS: levETIRAcetam 500 MG/5 ML LIQUID UDC GT SCH (08:55)
[2022-07-07] MEDS: PANTOPRAZOLE ORAL SUSPENSION 40 MG SUSPDR.PKT GT SCH (08:55)
[2022-07-07] MEDS: predniSONE 10 MG TABLET GT SCH (08:55)
[2022-07-07] MEDS: ASCORBIC ACID 500 MG TABLET GT SCH (08:56)
[2022-07-07] MEDS: CHOLECALCIFEROL 1,000 UNIT TABLET GT SCH (08:56)
[2022-07-07] MEDS: ENOXAPARIN SODIUM 40 MG/0.4 ML DISP.SYRIN SQ SCH (08:58)
--- NOTE | 2022-07-07 10:00 | NUR ---
Oral and trach care done. Secretions suctioned.
[2022-07-07] MEDS: VITAL AF 1.2 1,000 ML LIQUID GT PRN (10:50)
[2022-07-07 11:31] VITALS: BP 118/58
[2022-07-07 12:47] LABS: BAND % (MANUAL) 1 % (0-10); BASOPHILS % (MANUAL) 0 % (0-2); EOSINOPHILS % (MANUAL) 32 % (0-8); LYMPHOCYTES % (MANUAL) 16 % (20-40); MONOCYTES % (MANUAL) 11 % (2-10); NEUTROPHILS % (MANUAL) 38 % (42-75); REACTIVE LYMPHOCYTES 2 % (0-0)
[2022-07-07 12:48] LABS: BLASTS, MANUAL % 0 % (0-0); METAMYELOCYTES % 0 % (0-1); MYELOCYTES % 0 % (0-0); PROMYELOCYTES % 0 %
--- NOTE | 2022-07-07 14:00 | NUR ---
Wound care on the right foot. Repositioned comfortably
[2022-07-07 17:15] VITALS: BP 107/48
--- NOTE | 2022-07-07 18:06 | NUR ---
Repositioned, kept dry and comfortable.
[2022-07-07 22:43] VITALS: BP_SYST 107
[2022-07-08] MEDS: ALBUTEROL SULFATE 1.25 MG/3 ML NEBU NEB SCH ×4 (01:40→20:12)
[2022-07-08] MEDS: IPRATROPIUM BROMIDE 0.5 MG/2.5 ML NEBU NEB SCH ×4 (01:40→20:12)
--- NOTE | 2022-07-08 05:22 | NUR ---
Obtunded. No respiratory distress noted. Sinus manny on tele with HR of 54/min. Trach to vent in place. IJ intact and patent. GT feeding infusing. Rice catheter intact and draining. Wound dressing done on right foot. Repositioned pt. Suctioned oral and trach as needed. Safety precautions maintained.
[2022-07-08] MEDS: MIDODRINE HCL 5 MG TABLET PO SCH ×3 (05:38→21:39)
[2022-07-08 05:48] VITALS: BP 115/61
[2022-07-08] MEDS: MIRALAX 17 GM POWD.PACK GT SCH (08:12)
[2022-07-08] MEDS: CHOLECALCIFEROL 1,000 UNIT TABLET GT SCH (08:12)
[2022-07-08] MEDS: PANTOPRAZOLE ORAL SUSPENSION 40 MG SUSPDR.PKT GT SCH (08:12)
[2022-07-08] MEDS: levETIRAcetam 500 MG/5 ML LIQUID UDC GT SCH (08:12)
[2022-07-08] MEDS: MULTIVIT, IRON, MIN NO. 8, FA TABLET GT SCH (08:12)
[2022-07-08] MEDS: predniSONE 10 MG TABLET GT SCH (08:12)
[2022-07-08] MEDS: ASCORBIC ACID 500 MG TABLET GT SCH (08:13)
[2022-07-08] MEDS: ENOXAPARIN SODIUM 40 MG/0.4 ML DISP.SYRIN SQ SCH (08:14)
[2022-07-08] MEDS: TOBRAMYCIN/DEXAMETH OPHT OINT 3.5 GM TUBE LEFTEYE SCH ×3 (11:38→23:56)
[2022-07-08] MEDS: VITAL AF 1.2 1,000 ML LIQUID GT PRN (12:47)
--- NOTE | 2022-07-08 18:00 | NUR ---
PT obtunded. Pt third spacing and UE's leaking. Redness throughout body noted. Anasarca noted. PT vent dependent. PT had large BM for am shift. Suctioned pt 2x for AM shift. G tube no residuals noted. Call light is within reach.
[2022-07-08 20:00] VITALS: BP 120/56
[2022-07-09] VITALS: BP 121/63
[2022-07-09] MEDS: IPRATROPIUM BROMIDE 0.5 MG/2.5 ML NEBU NEB SCH ×4 (00:56→20:48)
[2022-07-09] MEDS: ALBUTEROL SULFATE 1.25 MG/3 ML NEBU NEB SCH ×4 (00:56→20:48)
[2022-07-09 04:00] VITALS: BP 124/81
[2022-07-09] MEDS: TOBRAMYCIN/DEXAMETH OPHT OINT 3.5 GM TUBE LEFTEYE SCH ×3 (05:28→17:02)
[2022-07-09] MEDS: MIDODRINE HCL 5 MG TABLET PO SCH ×3 (05:29→21:10)
--- NOTE | 2022-07-09 07:13 | NUR ---
REPORT GIVEN TO ROBIN HOMER
[2022-07-09 07:37] LABS: HEMATOCRIT 24.9 % (36.7-47.1); MEAN CORPUSCULAR HEMOGLOBIN 32.3 uug (23.8-33.4); MEAN CORPUSCULAR VOLUME 98.7 fL (73.0-96.2); PLATELET COUNT (AUTO) 274 K/uL (152-348)
[2022-07-09 07:58] LABS: CREATININE 0.8 mg/dL (0.6-1.3); MAGNESIUM 1.5 mg/dL (1.8-2.4); PHOSPHOROUS 4.1 mg/dL (2.5-4.9); POTASSIUM 4.1 mmol/L (3.5-5.1)
--- NOTE | 2022-07-09 08:00 | NUR ---
Pt obtunded. Noted nasir eyes redness -applying tobramycin as ordered. Suctioned minimal sputum pt through trache. Vents settings as ordered - RT at bedside. Pt comfortable in bed. Pt's UE's leaking serous sanguanous fluids. Redness noted as yesterday throughout body stacy on right side of arm and torso. ANASARCA NOTED. Legs elevated. side rails padded for seizure precautions. Call light is within reach reach.
[2022-07-09] MEDS: levETIRAcetam 500 MG/5 ML LIQUID UDC GT SCH (08:40)
[2022-07-09] MEDS: MIRALAX 17 GM POWD.PACK GT SCH (08:43)
[2022-07-09] MEDS: MULTIVIT, IRON, MIN NO. 8, FA TABLET GT SCH (08:44)
[2022-07-09] MEDS: CHOLECALCIFEROL 1,000 UNIT TABLET GT SCH (08:45)
[2022-07-09] MEDS: ASCORBIC ACID 500 MG TABLET GT SCH (08:46)
[2022-07-09] MEDS: predniSONE 10 MG TABLET GT SCH (08:46)
[2022-07-09] MEDS: PANTOPRAZOLE ORAL SUSPENSION 40 MG SUSPDR.PKT GT SCH (08:47)
[2022-07-09] MEDS: ENOXAPARIN SODIUM 40 MG/0.4 ML DISP.SYRIN SQ SCH (08:48)
[2022-07-09] MEDS: MAGNESIUM SULFATE/D5W 100 ML IV SCH ×2 (10:57→12:51)
[2022-07-09] MEDS: VITAL AF 1.2 1,000 ML LIQUID GT PRN (11:00)
[2022-07-09 11:44] VITALS: BP 123/61
[2022-07-09 11:48] LABS: BAND % (MANUAL) 1 % (0-10); EOSINOPHILS % (MANUAL) 40 % (0-8); LYMPHOCYTES % (MANUAL) 15 % (20-40); METAMYELOCYTES % 1 % (0-1); MONOCYTES % (MANUAL) 3 % (2-10); NEUTROPHILS % (MANUAL) 40 % (42-75)
[2022-07-09 15:47] VITALS: BP 116/58
--- NOTE | 2022-07-09 18:30 | NUR ---
Right later ankle wound - hardware exposed with scant serous drainage. Right heel (red/brownish color non open. Dressing changed as ordered. right heel floated with pillow.
--- NOTE | 2022-07-09 19:30 | NUR ---
Received patient lying in bed. Obtunded, non-verbal. Appears comfortable in bed. In no apparent distress. Trach to vent in place. Sinus manny on tele with HR of 54/min. IJ on right side intact and patent. GT feeding infusing. Rice catheter intact and draining via gravity. Continue to monitor.
[2022-07-09 20:00] VITALS: BP 115/57
[2022-07-10 00:08] VITALS: BP 114/64
[2022-07-10] MEDS: ALBUTEROL SULFATE 1.25 MG/3 ML NEBU NEB SCH ×4 (00:40→19:01)
[2022-07-10] MEDS: IPRATROPIUM BROMIDE 0.5 MG/2.5 ML NEBU NEB SCH ×4 (00:40→19:01)
[2022-07-10] MEDS: TOBRAMYCIN/DEXAMETH OPHT OINT 3.5 GM TUBE LEFTEYE SCH ×5 (00:44→23:01)
[2022-07-10] MEDS: VITAL AF 1.2 1,000 ML LIQUID GT PRN (04:05)
[2022-07-10 04:36] VITALS: BP 103/60
[2022-07-10] MEDS: MIDODRINE HCL 5 MG TABLET PO SCH ×3 (05:20→22:57)
--- NOTE | 2022-07-10 05:52 | NUR ---
In no acute distress. GT feeding and flushing well tolerated. Rice catheter intact and patent. Safety measure maintained and call light within reached.
[2022-07-10 07:55] LABS: CREATININE 0.7 mg/dL (0.6-1.3); MAGNESIUM 1.8 mg/dL (1.8-2.4); PHOSPHOROUS 3.3 mg/dL (2.5-4.9)
--- NOTE | 2022-07-10 08:00 | NUR ---
received obtunded, with trache connected to vent with the following settings; AC 26, fio2 35%, TV 450, peep 5, sat at 97%, tele SB 54, head of bed elevated, GT in place- checked residual none obtained, started at 65ml/hr as scheduled, right IJ central line only brown port functioning. Bilateral arms red and swollen and elevated on pillows, spangler draining yellow urine, repositioned to sides q2h with heels off loaded with pillows, right foot/ankle dsg dry and intact
[2022-07-10 08:53] LABS: HEMATOCRIT 25.3 % (36.7-47.1); MEAN CORPUSCULAR HEMOGLOBIN 32.9 uug (23.8-33.4); MEAN CORPUSCULAR VOLUME 98.2 fL (73.0-96.2); PLATELET COUNT (AUTO) 251 K/uL (152-348)
[2022-07-10] MEDS ORDERED: predniSONE 10 MG TABLET GT SCH (09:00)
[2022-07-10] MEDS: PANTOPRAZOLE ORAL SUSPENSION 40 MG SUSPDR.PKT GT SCH (09:29)
[2022-07-10] MEDS: ASCORBIC ACID 500 MG TABLET GT SCH (09:30)
[2022-07-10] MEDS: CHOLECALCIFEROL 1,000 UNIT TABLET GT SCH (09:30)
[2022-07-10] MEDS: levETIRAcetam 500 MG/5 ML LIQUID UDC GT SCH (09:30)
[2022-07-10] MEDS: predniSONE 5 MG TABLET GT SCH (09:30)
[2022-07-10] MEDS: MULTIVIT, IRON, MIN NO. 8, FA TABLET GT SCH (09:30)
[2022-07-10] MEDS: POLYVINYL ALCOHOL OPHT DROPS 15 ML BOTTLE EACHEYE PRN (09:30)
[2022-07-10] MEDS: ENOXAPARIN SODIUM 40 MG/0.4 ML DISP.SYRIN SQ SCH (09:32)
[2022-07-10] MEDS: MIRALAX 17 GM POWD.PACK GT SCH (09:33)
[2022-07-10 11:45] VITALS: BP 110/60
--- NOTE | 2022-07-10 12:00 | NUR ---
tolerating tube fdg well, H20 flushes done as ordered, repositioned to sides, incontinent of stool washed and kept clean and dry, right foot treatment done as ordered
[2022-07-10 16:00] VITALS: BP 105/58
--- NOTE | 2022-07-10 18:00 | NUR ---
no distress noted, remains on vent via trach, tolerating tube fdg well, tele SB 50's
[2022-07-10 18:12] LABS: BASOPHILS % (MANUAL) 1 % (0-2); EOSINOPHILS % (MANUAL) 44 % (0-8); LYMPHOCYTES % (MANUAL) 15 % (20-40); MONOCYTES % (MANUAL) 10 % (2-10); NEUTROPHILS % (MANUAL) 30 % (42-75)
[2022-07-10 20:00] VITALS: BP 107/43
[2022-07-11] VITALS: BP 118/52
[2022-07-11] MEDS: ALBUTEROL SULFATE 1.25 MG/3 ML NEBU NEB SCH ×4 (00:54→19:29)
[2022-07-11] MEDS: IPRATROPIUM BROMIDE 0.5 MG/2.5 ML NEBU NEB SCH ×4 (00:54→19:29)
[2022-07-11 04:00] VITALS: BP 113/52
[2022-07-11] MEDS: TOBRAMYCIN/DEXAMETH OPHT OINT 3.5 GM TUBE LEFTEYE SCH ×3 (06:55→17:19)
[2022-07-11] MEDS: MIDODRINE HCL 5 MG TABLET PO SCH (06:56)
--- NOTE | 2022-07-11 07:45 | NUR ---
Endorsed to primary RN Kathi. Pt. is injury free. VSS. Continued Vent support and is stable at this time. Monitored for acute distress.
--- NOTE | 2022-07-11 08:00 | NUR ---
REMAINS ON A VENT S8, AC 26, TV 450 ON 30% , PEEP 5 SATURATING 98%, NO SS OF DISTRESS OR ACUTE PAIN. SR ON MONITOR, TOLERATING TUBE FEEDING AT 65 MLS/HR, DNR STATUS ORDERED
[2022-07-11] MEDS: levETIRAcetam 500 MG/5 ML LIQUID UDC GT SCH (08:46)
[2022-07-11] MEDS: CHOLECALCIFEROL 1,000 UNIT TABLET GT SCH (08:46)
[2022-07-11] MEDS: ASCORBIC ACID 500 MG TABLET GT SCH (08:46)
[2022-07-11] MEDS: PANTOPRAZOLE ORAL SUSPENSION 40 MG SUSPDR.PKT GT SCH (08:46)
[2022-07-11] MEDS: predniSONE 5 MG TABLET GT SCH (08:46)
[2022-07-11] MEDS: MULTIVIT, IRON, MIN NO. 8, FA TABLET GT SCH (08:47)
[2022-07-11] MEDS: MIRALAX 17 GM POWD.PACK GT SCH (08:47)
[2022-07-11] MEDS: REMEDY ESSENTIAL ZINC PASTE 113 GM TOP PRN (08:48)
[2022-07-11] MEDS: ENOXAPARIN SODIUM 40 MG/0.4 ML DISP.SYRIN SQ SCH (08:49)
--- NOTE | 2022-07-11 09:00 | NUR ---
SEEN BY HOSPITALIST FOR FOLLOW-UP CONTINUE WITH DISCHARGE PLANNING INITIATED. RN PLASTICS IN PROGRESS
--- NOTE | 2022-07-11 10:00 | NUR ---
SEEN BY DR LISA FOR PULMONOLOGY FOLLOW-UP, AGREED PLAN OF CARE, NO NEW ORDERS
[2022-07-11 11:40] VITALS: BP 114/48
[2022-07-11] MEDS: MIDODRINE HCL 5 MG TABLET GT SCH ×2 (14:40→21:44)
[2022-07-11 15:20] VITALS: BP 149/53
[2022-07-11 20:00] VITALS: BP 99/55
--- NOTE | 2022-07-11 21:44 | NUR ---
due medication crushed and given via the GT flushed GT patent dressing cdi tolerating TF VITAL at 65 cc/hour aspiration precaution observed .
--- NOTE | 2022-07-11 21:46 | NUR ---
with the help of the CRIME LABORATORY ANALYST turned and reposition patient offloaded back with pillow and bilateral upper and lower extremities elevated with pillows . hob up .
[2022-07-12] VITALS: BP 109/58
[2022-07-12] MEDS: TOBRAMYCIN/DEXAMETH OPHT OINT 3.5 GM TUBE LEFTEYE SCH ×4 (01:24→17:41)
[2022-07-12] MEDS: IPRATROPIUM BROMIDE 0.5 MG/2.5 ML NEBU NEB SCH ×4 (01:26→21:26)
[2022-07-12] MEDS: ALBUTEROL SULFATE 1.25 MG/3 ML NEBU NEB SCH ×4 (01:26→21:26)
[2022-07-12] MEDS: ACETAMINOPHEN 325 MG TABLET GT PRN (03:30)
[2022-07-12 04:00] VITALS: BP 120/63
[2022-07-12] MEDS: MIDODRINE HCL 5 MG TABLET GT SCH ×3 (05:10→22:23)
--- NOTE | 2022-07-12 06:34 | NUR ---
uneventful night patient tolerating vent and vent settings , with head of product"s help bath patient Changed soiled linen and gown oral care and trach care Rice care done record i and os . . flushed GT with free water 300 ml q4 hourly .hob up aspiration precaution observed . turned and reposition patient offloaded heels off bed , elevated bilateral upper and lower extremities with pillow . eye drops administered as ordered and due mediation given see emar .
--- NOTE | 2022-07-12 08:00 | NUR ---
PATIENT REMAINS ON VENTILATOR WITH S#8, 26, 450, 03%, 5 SATURATING 96-98%. MODERATE AMOUNT OF SECRETION NOTED TRACHEAL/ORAL SUCTIONING DONE. STARTED ROUTINE TF AT 65 MLS/HR VIA GT NO RESIDUAL NOTED. SR-SB ON MONITOR. CONTINUE WITH TELE
[2022-07-12] MEDS: ASCORBIC ACID 500 MG TABLET GT SCH (08:38)
[2022-07-12] MEDS: levETIRAcetam 500 MG/5 ML LIQUID UDC GT SCH (08:38)
[2022-07-12] MEDS: PANTOPRAZOLE ORAL SUSPENSION 40 MG SUSPDR.PKT GT SCH (08:38)
[2022-07-12] MEDS: CHOLECALCIFEROL 1,000 UNIT TABLET GT SCH (08:38)
[2022-07-12] MEDS: MIRALAX 17 GM POWD.PACK GT SCH (08:39)
[2022-07-12] MEDS: MULTIVIT, IRON, MIN NO. 8, FA TABLET GT SCH (08:39)
[2022-07-12] MEDS: predniSONE 5 MG TABLET GT SCH (08:39)
[2022-07-12] MEDS: ENOXAPARIN SODIUM 40 MG/0.4 ML DISP.SYRIN SQ SCH (08:40)
[2022-07-12 12:00] VITALS: BP 109/56
--- NOTE | 2022-07-12 13:01 | NUR ---
TOLERATING FEEDING WELL ORDERED. KEEP COMFORTABLE ON A HIGH FOWLERS POSITON. REMAINS SR ON MONITOR
[2022-07-12 16:00] VITALS: BP 116/59
[2022-07-12 21:45] VITALS: BP 110/59
[2022-07-13] MEDS: ALBUTEROL SULFATE 1.25 MG/3 ML NEBU NEB SCH ×4 (00:32→21:12)
[2022-07-13] MEDS: IPRATROPIUM BROMIDE 0.5 MG/2.5 ML NEBU NEB SCH ×4 (00:32→21:12)
[2022-07-13] MEDS: TOBRAMYCIN/DEXAMETH OPHT OINT 3.5 GM TUBE LEFTEYE SCH ×4 (00:35→16:36)
[2022-07-13 00:48] VITALS: BP 106/60
[2022-07-13 04:55] VITALS: BP 116/60
[2022-07-13] MEDS: MIDODRINE HCL 5 MG TABLET GT SCH ×3 (05:19→22:17)
--- NOTE | 2022-07-13 07:02 | NUR ---
REPORT GIVEN TO ROBIN MELCHOR
--- NOTE | 2022-07-13 08:00 | NUR ---
PATIENT REMAINS ON CONTINUOUS VENTILATOR ORDERED S8, 26-450-30-5 SATURATING 98%, NO SIGNS OG DISTRESS. VERY MINIMAL SECRETION NOTED. STARTED TF VITAL AT 65 MLS/HR SR 0N MONITOR
[2022-07-13] MEDS: CHOLECALCIFEROL 1,000 UNIT TABLET GT SCH (09:34)
[2022-07-13] MEDS: levETIRAcetam 500 MG/5 ML LIQUID UDC GT SCH (09:34)
[2022-07-13] MEDS: MIRALAX 17 GM POWD.PACK GT SCH (09:34)
[2022-07-13] MEDS: MULTIVIT, IRON, MIN NO. 8, FA TABLET GT SCH (09:34)
[2022-07-13] MEDS: PANTOPRAZOLE ORAL SUSPENSION 40 MG SUSPDR.PKT GT SCH (09:34)
[2022-07-13] MEDS: ASCORBIC ACID 500 MG TABLET GT SCH (09:35)
[2022-07-13] MEDS: predniSONE 5 MG TABLET GT SCH (09:35)
[2022-07-13] MEDS: REMEDY ESSENTIAL ZINC PASTE 113 GM TOP PRN (09:36)
[2022-07-13] MEDS: VITAL AF 1.2 1,000 ML LIQUID GT PRN (09:36)
[2022-07-13] MEDS: ENOXAPARIN SODIUM 40 MG/0.4 ML DISP.SYRIN SQ SCH (09:37)
--- NOTE | 2022-07-13 11:00 | NUR ---
SEEN BY HOSPITALIST FOR FOLLOW-UP SEE NOTES. MORNING CARE DONE, WOUND REMAINS CLEAN AND NO ACTIVE DRAINAGE, NON-FOWL CONTINUE WITH TX ORDERED
[2022-07-13 12:00] VITALS: BP 99/55
[2022-07-13 16:00] VITALS: BP 106/54
--- NOTE | 2022-07-13 18:10 | NUR ---
AWAITING PLACEMENT SEE RAILROAD MAINTENANCE CLERK NOTES. PATIENT REMAINS ON A VENT S#[id number] SATURATING 98%. TOLERATING FEEDING AT 65 MLS/HR NO RESIDUAL.
[2022-07-13 20:00] VITALS: BP 128/63
[2022-07-14] VITALS: BP 134/63
[2022-07-14] MEDS: TOBRAMYCIN/DEXAMETH OPHT OINT 3.5 GM TUBE LEFTEYE SCH ×5 (00:03→23:17)
[2022-07-14] MEDS: ALBUTEROL SULFATE 1.25 MG/3 ML NEBU NEB SCH ×4 (01:08→22:14)
[2022-07-14] MEDS: IPRATROPIUM BROMIDE 0.5 MG/2.5 ML NEBU NEB SCH ×4 (01:08→22:14)
[2022-07-14 04:00] VITALS: BP 103/68
[2022-07-14] MEDS: MIDODRINE HCL 5 MG TABLET GT SCH ×3 (05:17→22:30)
--- NOTE | 2022-07-14 07:30 | NUR ---
REPORT GIVEN TO ROBIN LUIS
[2022-07-14] MEDS: ASCORBIC ACID 500 MG TABLET GT SCH (09:04)
[2022-07-14] MEDS: MULTIVIT, IRON, MIN NO. 8, FA TABLET GT SCH (09:04)
[2022-07-14] MEDS: PANTOPRAZOLE ORAL SUSPENSION 40 MG SUSPDR.PKT GT SCH (09:04)
[2022-07-14] MEDS: levETIRAcetam 500 MG/5 ML LIQUID UDC GT SCH (09:05)
[2022-07-14] MEDS: CHOLECALCIFEROL 1,000 UNIT TABLET GT SCH (09:05)
[2022-07-14] MEDS: predniSONE 5 MG TABLET GT SCH (09:05)
[2022-07-14] MEDS: MIRALAX 17 GM POWD.PACK GT SCH (09:05)
[2022-07-14] MEDS: ENOXAPARIN SODIUM 40 MG/0.4 ML DISP.SYRIN SQ SCH (09:48)
[2022-07-14 11:53] VITALS: BP 128/52
[2022-07-14] MEDS: POLYVINYL ALCOHOL OPHT DROPS 15 ML BOTTLE EACHEYE SCH ×2 (13:47→22:31)
[2022-07-14 16:00] VITALS: BP 109/63
--- NOTE | 2022-07-14 16:56 | NUR ---
Pt. has been stable during the shift. Pt. needs total assist. Kept the pt. clean and dry. Skin treatment done. Oral care provided. turned and repositioned every 2 hours and as needed. Will keep monitoring the patient.
[2022-07-14 20:00] VITALS: BP 126/68
[2022-07-15] MEDS: VITAL AF 1.2 1,000 ML LIQUID GT PRN ×2 (02:10→22:42)
[2022-07-15] MEDS: IPRATROPIUM BROMIDE 0.5 MG/2.5 ML NEBU NEB SCH ×4 (02:15→19:58)
[2022-07-15] MEDS: ALBUTEROL SULFATE 1.25 MG/3 ML NEBU NEB SCH ×4 (02:16→19:59)
--- NOTE | 2022-07-15 06:00 | NUR ---
pATIENT RESTED WELL IN BETWEEN CARE; HOURLY ROUNDING DONE; WOUND CARE DONE; ORAL AND TRACHE CARE DONE; CONTINUE TO MONITOR; CONTINUE PLAN OF CARE.
[2022-07-15 06:24] VITALS: BP 121/69
[2022-07-15] MEDS: MIDODRINE HCL 5 MG TABLET GT SCH ×3 (06:35→21:30)
[2022-07-15] MEDS: TOBRAMYCIN/DEXAMETH OPHT OINT 3.5 GM TUBE LEFTEYE SCH ×4 (06:35→23:37)
[2022-07-15] MEDS: POLYVINYL ALCOHOL OPHT DROPS 15 ML BOTTLE EACHEYE SCH ×3 (06:35→21:31)
[2022-07-15] MEDS: levETIRAcetam 500 MG/5 ML LIQUID UDC GT SCH (08:38)
[2022-07-15] MEDS: MIRALAX 17 GM POWD.PACK GT SCH (08:38)
[2022-07-15] MEDS: CHOLECALCIFEROL 1,000 UNIT TABLET GT SCH (08:38)
[2022-07-15] MEDS: PANTOPRAZOLE ORAL SUSPENSION 40 MG SUSPDR.PKT GT SCH (08:39)
[2022-07-15] MEDS: MULTIVIT, IRON, MIN NO. 8, FA TABLET GT SCH (08:39)
[2022-07-15] MEDS: ASCORBIC ACID 500 MG TABLET GT SCH (08:39)
[2022-07-15] MEDS: ENOXAPARIN SODIUM 40 MG/0.4 ML DISP.SYRIN SQ SCH (08:45)
[2022-07-15] MEDS: predniSONE 5 MG TABLET GT SCH (08:46)
--- NOTE | 2022-07-15 10:35 | NUR ---
Rcvd pt in bed semi-harper's position. Set up in AC mechanical ventillator. NSR in telemetry. IJ IV patent running 3 TKO. Pt in GT Vital 1.2 @ 65 ml/hr. Off 6 am and ON 8pm. Routine medications given and pt. tolerated well. Repositioned pt. Q 2 hours.
[2022-07-15 11:34] VITALS: BP 118/70
[2022-07-15 16:05] VITALS: BP 109/58
--- NOTE | 2022-07-15 17:31 | NUR ---
REPOSITIONED PT Q2 HOURS. SUCTIONED PT ORDERED. PROVIDED MOUTH CARE AND WOUND CARE. PT TEMPERATURE 95.4 APPLIED MINOO HUGGER. IJ IV RUNNING 3 TKO INTACT AND PATENT. ASKEW DRAINING BY GRAVITY WITH OUTPUT OF 350CC.
[2022-07-15 20:00] VITALS: BP 113/58
[2022-07-16] VITALS: BP 101/54
[2022-07-16] MEDS: IPRATROPIUM BROMIDE 0.5 MG/2.5 ML NEBU NEB SCH ×5 (01:17→18:26)
[2022-07-16] MEDS: ALBUTEROL SULFATE 1.25 MG/3 ML NEBU NEB SCH ×5 (01:18→18:26)
[2022-07-16 04:00] VITALS: BP 114/60
[2022-07-16] MEDS: MIDODRINE HCL 5 MG TABLET GT SCH ×3 (05:07→21:05)
[2022-07-16] MEDS: TOBRAMYCIN/DEXAMETH OPHT OINT 3.5 GM TUBE LEFTEYE SCH ×3 (05:07→17:25)
[2022-07-16] MEDS: POLYVINYL ALCOHOL OPHT DROPS 15 ML BOTTLE EACHEYE SCH ×3 (05:08→21:49)
--- NOTE | 2022-07-16 06:42 | NUR ---
end of shift report PT RESTED WELL IN BETWEEN CARE; ORAL AND TRACHE CARE DONE; REMAINS ON MINOO HUGGER; TEMP IS 97.1 DEG f AXILLARY; REPOSITIONED Q2H; HOURLY ROUNDING DONE; [id number] TO MONITOR; CONTINUE PLAN OF CARE.
--- NOTE | 2022-07-16 08:00 | NUR ---
Pt on vent as ordered. Nik hugger on pt. Suctioned pt minimal secretion noted. Pt on air Mattress. Cameron heel floated. Pt has no facial grimace. Turn pt q 2 hrs implemented. Call light is within reach.
[2022-07-16] MEDS: ASCORBIC ACID 500 MG TABLET GT SCH (09:34)
[2022-07-16] MEDS: predniSONE 5 MG TABLET GT SCH (09:34)
[2022-07-16] MEDS: levETIRAcetam 500 MG/5 ML LIQUID UDC GT SCH (09:34)
[2022-07-16] MEDS: CHOLECALCIFEROL 1,000 UNIT TABLET GT SCH (09:34)
[2022-07-16] MEDS: PANTOPRAZOLE ORAL SUSPENSION 40 MG SUSPDR.PKT GT SCH (09:34)
[2022-07-16] MEDS: MULTIVIT, IRON, MIN NO. 8, FA TABLET GT SCH (09:34)
[2022-07-16] MEDS: MIRALAX 17 GM POWD.PACK GT SCH (09:34)
[2022-07-16] MEDS: ENOXAPARIN SODIUM 40 MG/0.4 ML DISP.SYRIN SQ SCH (09:36)
[2022-07-16 10:20] LABS: HEMATOCRIT 26.4 % (36.7-47.1); MEAN CORPUSCULAR HEMOGLOBIN 32.2 uug (23.8-33.4); MEAN CORPUSCULAR VOLUME 99.1 fL (73.0-96.2); PLATELET COUNT (AUTO) 225 K/uL (152-348)
[2022-07-16 10:39] LABS: BILIRUBIN,TOTAL 0.4 mg/dL (0.2-1.0); CREATININE 0.9 mg/dL (0.6-1.3); MAGNESIUM 1.6 mg/dL (1.8-2.4); PHOSPHOROUS 3.9 mg/dL (2.5-4.9); POTASSIUM 3.9 mmol/L (3.5-5.1); TOTAL PROTEIN, SERUM 6.5 g/dL (6.4-8.2)
[2022-07-16 11:32] VITALS: BP 107/54
[2022-07-16 12:18] LABS: BAND % (MANUAL) 1 % (0-10); EOSINOPHILS % (MANUAL) 17 % (0-8); LYMPHOCYTES % (MANUAL) 7 % (20-40); MONOCYTES % (MANUAL) 5 % (2-10); NEUTROPHILS % (MANUAL) 70 % (42-75)
--- NOTE | 2022-07-16 15:00 | NUR ---
Notified TEENAGE PROGRAM DIRECTOR of pt nasir upper extremities were more red than I previously remembered when i had the patient. Per alfredo have wound care eval patient. No fever noted this shift.
[2022-07-16 16:30] VITALS: BP 101/51
[2022-07-16 20:00] VITALS: BP 103/51
[2022-07-16] MEDS: ACETAMINOPHEN 325 MG TABLET GT PRN (21:14)
[2022-07-17] VITALS: BP 112/47
[2022-07-17] MEDS: VITAL AF 1.2 1,000 ML LIQUID GT PRN (00:20)
[2022-07-17] MEDS: TOBRAMYCIN/DEXAMETH OPHT OINT 3.5 GM TUBE LEFTEYE SCH ×4 (00:20→18:17)
[2022-07-17] MEDS: IPRATROPIUM BROMIDE 0.5 MG/2.5 ML NEBU NEB SCH ×4 (01:19→19:57)
[2022-07-17] MEDS: ALBUTEROL SULFATE 1.25 MG/3 ML NEBU NEB SCH ×4 (01:19→19:57)
[2022-07-17 04:00] VITALS: BP 117/56
[2022-07-17] MEDS: MIDODRINE HCL 5 MG TABLET GT SCH ×3 (05:26→22:33)
[2022-07-17] MEDS: POLYVINYL ALCOHOL OPHT DROPS 15 ML BOTTLE EACHEYE SCH ×3 (05:29→22:33)
--- NOTE | 2022-07-17 06:52 | NUR ---
Pt rested in between care; pt tolerated current vent setting; repositioned q2h; hourly rounding done; trache and oral care done; kept HOB; temp better and off BairHugger
[2022-07-17 07:02] LABS: HEMATOCRIT 25.2 % (36.7-47.1); MEAN CORPUSCULAR HEMOGLOBIN 32.7 uug (23.8-33.4); MEAN CORPUSCULAR VOLUME 99.4 fL (73.0-96.2); PLATELET COUNT (AUTO) 243 K/uL (152-348)
[2022-07-17 07:07] LABS: CREATININE 0.9 mg/dL (0.6-1.3); POTASSIUM 3.9 mmol/L (3.5-5.1)
--- NOTE | 2022-07-17 08:00 | NUR ---
Awake. Trach to vent settings of AC 26, TV 450, FI02 30%, PEEP 5, with O2 sat of 98%. GT tube feeding of Vital AF resumed at 65ml/hr. Tele SR 6O
[2022-07-17] MEDS: CHOLECALCIFEROL 1,000 UNIT TABLET GT SCH (09:55)
[2022-07-17] MEDS: MIRALAX 17 GM POWD.PACK GT SCH (09:55)
[2022-07-17] MEDS: MULTIVIT, IRON, MIN NO. 8, FA TABLET GT SCH (09:55)
[2022-07-17] MEDS: levETIRAcetam 500 MG/5 ML LIQUID UDC GT SCH (09:55)
[2022-07-17] MEDS: ASCORBIC ACID 500 MG TABLET GT SCH (09:55)
[2022-07-17] MEDS: PANTOPRAZOLE ORAL SUSPENSION 40 MG SUSPDR.PKT GT SCH (09:55)
[2022-07-17] MEDS: predniSONE 5 MG TABLET GT SCH (09:55)
[2022-07-17] MEDS: ENOXAPARIN SODIUM 40 MG/0.4 ML DISP.SYRIN SQ SCH (09:57)
--- NOTE | 2022-07-17 10:30 | NUR ---
Oral and trach care done. Secretions suctioned.
[2022-07-17 12:02] VITALS: BP 117/59
[2022-07-17 12:12] LABS: EOSINOPHILS % (MANUAL) 45 % (0-8); LYMPHOCYTES % (MANUAL) 10 % (20-40); MONOCYTES % (MANUAL) 4 % (2-10); NEUTROPHILS % (MANUAL) 41 % (42-75)
[2022-07-17 16:00] VITALS: BP 118/54
--- NOTE | 2022-07-17 16:30 | NUR ---
With loose BM to greenish stool x 2, Incontinence care done with bed bath. Repositioned in bed comfortably.
--- NOTE | 2022-07-17 18:48 | NUR ---
Secretions suctioned. Oral care done. Repositioned in bed comfortably
--- NOTE | 2022-07-17 19:30 | NUR ---
Received patient lying in bed. In no apparent distress. Trach to vent in place. Sinus manny on tele with HR of 53/min. IV site on right IJ intact and patent. GT feeding infusing. Rice catheter intact and draining via gravity. Safety measure initiated. Continue to monitor.
[2022-07-17 20:00] VITALS: BP 111/63
--- NOTE | 2022-07-17 23:00 | NUR ---
Change Rice catheter Fr 16 with 10cc balloon per BLAKE moore.
[2022-07-18] VITALS: BP 101/58
[2022-07-18] MEDS: TOBRAMYCIN/DEXAMETH OPHT OINT 3.5 GM TUBE LEFTEYE SCH ×2 (00:19→05:13)
[2022-07-18] MEDS: ALBUTEROL SULFATE 1.25 MG/3 ML NEBU NEB SCH ×5 (01:18→20:33)
[2022-07-18] MEDS: IPRATROPIUM BROMIDE 0.5 MG/2.5 ML NEBU NEB SCH ×5 (01:18→20:33)
[2022-07-18] MEDS: VITAL AF 1.2 1,000 ML LIQUID GT PRN (01:27)
[2022-07-18 04:00] VITALS: BP 113/52
[2022-07-18] MEDS: POLYVINYL ALCOHOL OPHT DROPS 15 ML BOTTLE EACHEYE SCH ×3 (05:14→21:51)
[2022-07-18] MEDS: MIDODRINE HCL 5 MG TABLET GT SCH ×3 (05:14→21:48)
--- NOTE | 2022-07-18 05:48 | NUR ---
Calm and comfortable. In no acute distress. Suction secretions PRN. GT feeding/flushing well tolerated. Turn and repositioned for comfort.
[2022-07-18] MEDS: MIRALAX 17 GM POWD.PACK GT SCH (09:00)
[2022-07-18] MEDS: ENOXAPARIN SODIUM 40 MG/0.4 ML DISP.SYRIN SQ SCH (09:57)
[2022-07-18] MEDS: PANTOPRAZOLE ORAL SUSPENSION 40 MG SUSPDR.PKT GT SCH (09:57)
[2022-07-18] MEDS: CHOLECALCIFEROL 1,000 UNIT TABLET GT SCH (09:58)
[2022-07-18] MEDS: ASCORBIC ACID 500 MG TABLET GT SCH (09:58)
[2022-07-18] MEDS: levETIRAcetam 500 MG/5 ML LIQUID UDC GT SCH (09:58)
[2022-07-18] MEDS: predniSONE 5 MG TABLET GT SCH (09:58)
[2022-07-18] MEDS: MULTIVIT, IRON, MIN NO. 8, FA TABLET GT SCH (09:58)
[2022-07-18 12:00] VITALS: BP 121/58
[2022-07-18 16:00] VITALS: BP 119/68
[2022-07-18] MEDS ORDERED: AMMONIUM LACTATE 12% LOTION 225 GM BOTTLE TP PRN (18:15)
[2022-07-18 22:24] VITALS: BP 121/65
[2022-07-18 23:49] VITALS: BP 134/73
[2022-07-19] MEDS: VITAL AF 1.2 1,000 ML LIQUID GT PRN (01:17)
[2022-07-19] MEDS: IPRATROPIUM BROMIDE 0.5 MG/2.5 ML NEBU NEB SCH ×4 (01:18→20:27)
[2022-07-19] MEDS: ALBUTEROL SULFATE 1.25 MG/3 ML NEBU NEB SCH ×4 (01:19→20:27)
[2022-07-19 04:30] VITALS: BP 150/77
[2022-07-19 04:45] VITALS: BP 162/86
[2022-07-19] MEDS: MIDODRINE HCL 5 MG TABLET GT SCH ×3 (05:33→21:08)
[2022-07-19] MEDS: POLYVINYL ALCOHOL OPHT DROPS 15 ML BOTTLE EACHEYE SCH ×3 (05:34→21:09)
--- NOTE | 2022-07-19 06:46 | NUR ---
END OF SHIFT REPORT Patient rested well in between care;; tolerated current vent settings; oral and trache care done; bed bath rendered; incontinence care done; hourly roundings; repositioned q2h;
[2022-07-19 07:02] LABS: HEMATOCRIT 25.8 % (36.7-47.1); MEAN CORPUSCULAR VOLUME 100.7 fL (73.0-96.2); PLATELET COUNT (AUTO) 253 K/uL (152-348)
[2022-07-19 07:29] LABS: BILIRUBIN,TOTAL 0.3 mg/dL (0.2-1.0); CREATININE 0.8 mg/dL (0.6-1.3); MAGNESIUM 2.1 mg/dL (1.8-2.4); PHOSPHOROUS 4.1 mg/dL (2.5-4.9); POTASSIUM 3.7 mmol/L (3.5-5.1); TOTAL PROTEIN, SERUM 6.6 g/dL (6.4-8.2)
[2022-07-19 08:41] VITALS: BP 130/71
[2022-07-19] MEDS: CHOLECALCIFEROL 1,000 UNIT TABLET GT SCH (08:55)
[2022-07-19] MEDS: MULTIVIT, IRON, MIN NO. 8, FA TABLET GT SCH (08:55)
[2022-07-19] MEDS: MIRALAX 17 GM POWD.PACK GT SCH (08:55)
[2022-07-19] MEDS: ASCORBIC ACID 500 MG TABLET GT SCH (08:55)
[2022-07-19] MEDS: predniSONE 5 MG TABLET GT SCH (08:55)
[2022-07-19] MEDS: PANTOPRAZOLE ORAL SUSPENSION 40 MG SUSPDR.PKT GT SCH (08:55)
[2022-07-19] MEDS: levETIRAcetam 500 MG/5 ML LIQUID UDC GT SCH (08:55)
[2022-07-19] MEDS: ENOXAPARIN SODIUM 40 MG/0.4 ML DISP.SYRIN SQ SCH (08:56)
[2022-07-19 12:00] VITALS: BP 95/49
[2022-07-19 15:06] LABS: BAND % (MANUAL) 2 % (0-10); EOSINOPHILS % (MANUAL) 46 % (0-8); LYMPHOCYTES % (MANUAL) 11 % (20-40); NEUTROPHILS % (MANUAL) 41 % (42-75)
[2022-07-19 16:00] VITALS: BP 98/55
[2022-07-19 20:00] VITALS: BP 111/68
[2022-07-20] MEDS: ALBUTEROL SULFATE 1.25 MG/3 ML NEBU NEB SCH ×4 (03:04→20:02)
[2022-07-20] MEDS: IPRATROPIUM BROMIDE 0.5 MG/2.5 ML NEBU NEB SCH ×4 (03:04→20:02)
[2022-07-20 04:48] VITALS: BP 123/54
[2022-07-20] MEDS: POLYVINYL ALCOHOL OPHT DROPS 15 ML BOTTLE EACHEYE SCH ×3 (06:32→21:02)
[2022-07-20] MEDS: MIDODRINE HCL 5 MG TABLET GT SCH ×3 (06:33→21:03)
[2022-07-20] MEDS: ASCORBIC ACID 500 MG TABLET GT SCH (08:38)
[2022-07-20] MEDS: predniSONE 5 MG TABLET GT SCH (08:38)
[2022-07-20] MEDS: CHOLECALCIFEROL 1,000 UNIT TABLET GT SCH (08:38)
[2022-07-20] MEDS: PANTOPRAZOLE ORAL SUSPENSION 40 MG SUSPDR.PKT GT SCH (08:38)
[2022-07-20] MEDS: MULTIVIT, IRON, MIN NO. 8, FA TABLET GT SCH (08:38)
[2022-07-20] MEDS: levETIRAcetam 500 MG/5 ML LIQUID UDC GT SCH (08:38)
[2022-07-20] MEDS: MIRALAX 17 GM POWD.PACK GT SCH (08:39)
[2022-07-20] MEDS: ENOXAPARIN SODIUM 40 MG/0.4 ML DISP.SYRIN SQ SCH (08:40)
[2022-07-20 12:00] VITALS: BP 110/62
[2022-07-20 15:47] VITALS: BP 101/60
--- NOTE | 2022-07-20 18:57 | NUR ---
Pt. has been stable during the shift. Kept the pt. clean and dry. Turned and repositioned every 2 hours and as needed. Mouth care provided. Received the G-Tube feeding and no residual noted. G-Tube site clean and dry. Aspiration precaution applied. Pt. requires max assist. Will keep monitoring the pt.
[2022-07-20 20:17] VITALS: BP 114/52
[2022-07-21] MEDS: ALBUTEROL SULFATE 1.25 MG/3 ML NEBU NEB SCH ×4 (00:30→20:02)
[2022-07-21] MEDS: IPRATROPIUM BROMIDE 0.5 MG/2.5 ML NEBU NEB SCH ×4 (00:31→20:02)
[2022-07-21 04:10] VITALS: BP 120/64
[2022-07-21] MEDS: MIDODRINE HCL 5 MG TABLET GT SCH ×3 (05:35→21:25)
[2022-07-21] MEDS: POLYVINYL ALCOHOL OPHT DROPS 15 ML BOTTLE EACHEYE SCH ×3 (05:36→21:25)
--- NOTE | 2022-07-21 05:48 | NUR ---
uneventful night patient tolerating vent setting .am care done changed soiled linens and gown turned and reposition patient , Rice care done ,trach care done suction prn via trach and via mouth ,turned and reposition offloaded back with pillows .tolerated tube feedings 300 ml of water flushes q4 hours done.
[2022-07-21] MEDS: VITAL AF 1.2 1,000 ML LIQUID GT PRN (07:59)
[2022-07-21] MEDS: predniSONE 5 MG TABLET GT SCH (08:35)
[2022-07-21] MEDS: MULTIVIT, IRON, MIN NO. 8, FA TABLET GT SCH (08:36)
[2022-07-21] MEDS: PANTOPRAZOLE ORAL SUSPENSION 40 MG SUSPDR.PKT GT SCH (08:36)
[2022-07-21] MEDS: CHOLECALCIFEROL 1,000 UNIT TABLET GT SCH (08:36)
[2022-07-21] MEDS: levETIRAcetam 500 MG/5 ML LIQUID UDC GT SCH (08:36)
[2022-07-21] MEDS: ASCORBIC ACID 500 MG TABLET GT SCH (08:36)
[2022-07-21] MEDS: MIRALAX 17 GM POWD.PACK GT SCH (08:37)
[2022-07-21] MEDS: ENOXAPARIN SODIUM 40 MG/0.4 ML DISP.SYRIN SQ SCH (08:38)
[2022-07-21 12:28] VITALS: BP 124/73
[2022-07-21 16:39] VITALS: BP 119/64
--- NOTE | 2022-07-21 17:41 | NUR ---
Pt. has been stable during the shift. Skin treatment done. Kept the pt. clean and dry. Turned and repositioned every 2 hours and as needed. Mouth care provided. Received the G-Tube feeding and no residual noted. G-Tube site clean and dry. Aspiration precaution applied. Pt. requires max assist. Will keep monitoring the pt.
[2022-07-21 20:13] VITALS: BP 113/71
--- NOTE | 2022-07-21 21:25 | NUR ---
due medication given crushed meds and given via GT flushed tube q used with water and flushes of 300 ml given q4 hourly .
--- NOTE | 2022-07-22 | NUR ---
turned and reposition patient offloaded back with pillow bue and ble elevated with pillows and heels off bed .oral care done suction patient via mouth and via trach . hob up aspiration precaution observed .
[2022-07-22] MEDS: IPRATROPIUM BROMIDE 0.5 MG/2.5 ML NEBU NEB SCH ×4 (00:30→19:59)
[2022-07-22] MEDS: ALBUTEROL SULFATE 1.25 MG/3 ML NEBU NEB SCH ×4 (00:30→19:59)
--- NOTE | 2022-07-22 00:30 | NUR ---
respiratory therapist at b/s to give patient breathing tx.
[2022-07-22 04:00] VITALS: BP 125/71
[2022-07-22] MEDS: MIDODRINE HCL 5 MG TABLET GT SCH ×3 (06:41→21:43)
[2022-07-22] MEDS: POLYVINYL ALCOHOL OPHT DROPS 15 ML BOTTLE EACHEYE SCH ×3 (06:42→21:44)
--- NOTE | 2022-07-22 07:45 | NUR ---
PATIENT REMAINS ON A VENTILATOR [facility] [id number] SATURATING 97% VIA TRACH, HOB ELEVATED 45 DEGREES, WILL START ON VITAL AT 65 MLS/HR NO RESIDUAL NOTED. SB ON MONITOR 46-55. GOOD ORAL CARE DONE. HOB ELEVATED 35 DEGREES FOR ASPIRATION PRECAUTION
[2022-07-22] MEDS: MIRALAX 17 GM POWD.PACK GT SCH (08:25)
[2022-07-22] MEDS: VITAL AF 1.2 1,000 ML LIQUID GT PRN (08:25)
[2022-07-22] MEDS: CHOLECALCIFEROL 1,000 UNIT TABLET GT SCH (08:25)
[2022-07-22] MEDS: PANTOPRAZOLE ORAL SUSPENSION 40 MG SUSPDR.PKT GT SCH (08:25)
[2022-07-22] MEDS: levETIRAcetam 500 MG/5 ML LIQUID UDC GT SCH (08:25)
[2022-07-22] MEDS: ENOXAPARIN SODIUM 40 MG/0.4 ML DISP.SYRIN SQ SCH (08:26)
[2022-07-22] MEDS: MULTIVIT, IRON, MIN NO. 8, FA TABLET GT SCH (08:26)
[2022-07-22] MEDS: predniSONE 5 MG TABLET GT SCH (08:26)
[2022-07-22] MEDS: ASCORBIC ACID 500 MG TABLET GT SCH (08:26)
--- NOTE | 2022-07-22 11:30 | NUR ---
COMPLETE BED BATH GIVEN WITH 2 PERSON MAX ASSIST. MADE AWARE OF DRY SCALY SKIN RASHES ALL OVER THE BODY WITH ORDERS.
[2022-07-22 11:35] VITALS: BP 113/61
--- NOTE | 2022-07-22 14:00 | NUR ---
SKIN SCRAPING TO R/O SCABIES DONE, SPECIMEN SENT FOR PATHOLOGY
[2022-07-22] MEDS ORDERED: PERMETHRIN 5% CREAM 60 GM TUBE TP ONE (15:00)
--- NOTE | 2022-07-22 15:30 | NUR ---
ELIMITE CREAM APPLIED ALL OVER THE BODY ORDERED.
[2022-07-22 16:00] VITALS: BP 120/54
[2022-07-22 20:00] VITALS: BP 115/68
[2022-07-23] VITALS: BP 134/72
[2022-07-23] MEDS: IPRATROPIUM BROMIDE 0.5 MG/2.5 ML NEBU NEB SCH ×4 (01:52→19:54)
[2022-07-23] MEDS: ALBUTEROL SULFATE 1.25 MG/3 ML NEBU NEB SCH ×4 (01:52→19:54)
[2022-07-23] MEDS: VITAL AF 1.2 1,000 ML LIQUID GT PRN (03:12)
[2022-07-23 04:00] VITALS: BP 129/66
--- NOTE | 2022-07-23 05:47 | NUR ---
Pt obtunded. On Shiley 8.0. Suctioned as needed. Tolerating current vent settings. Sinus manny on tele at 55/min. IV site on right IJ intact and patent. GT feeding at 65 cc/hr. Tolerating well with no residual. Rice catheter not draining, changed aseptically. Intact and draining cloudy yellow with foul odor urine. Bed bath rendered. Oral and trach care done. Turned q2h. Safety measures and isolation precautions maintained.
[2022-07-23] MEDS: MIDODRINE HCL 5 MG TABLET GT SCH ×3 (05:49→21:43)
[2022-07-23] MEDS: POLYVINYL ALCOHOL OPHT DROPS 15 ML BOTTLE EACHEYE SCH ×3 (05:50→21:44)
[2022-07-23 06:39] LABS: HEMATOCRIT 32.1 % (36.7-47.1); MEAN CORPUSCULAR HEMOGLOBIN 32.1 uug (23.8-33.4); MEAN CORPUSCULAR VOLUME 100.3 fL (73.0-96.2); PLATELET COUNT (AUTO) 238 K/uL (152-348)
[2022-07-23 06:55] LABS: BILIRUBIN,TOTAL 0.4 mg/dL (0.2-1.0); CREATININE 0.8 mg/dL (0.6-1.3); PHOSPHOROUS 4.2 mg/dL (2.5-4.9); POTASSIUM 4.3 mmol/L (3.5-5.1); TOTAL PROTEIN, SERUM 6.8 g/dL (6.4-8.2)
[2022-07-23] MEDS: ASCORBIC ACID 500 MG TABLET GT SCH (08:32)
[2022-07-23] MEDS: MULTIVIT, IRON, MIN NO. 8, FA TABLET GT SCH (08:32)
[2022-07-23] MEDS: PANTOPRAZOLE ORAL SUSPENSION 40 MG SUSPDR.PKT GT SCH (08:32)
[2022-07-23] MEDS: CHOLECALCIFEROL 1,000 UNIT TABLET GT SCH (08:32)
[2022-07-23] MEDS: levETIRAcetam 500 MG/5 ML LIQUID UDC GT SCH (08:32)
[2022-07-23] MEDS: predniSONE 5 MG TABLET GT SCH (08:32)
[2022-07-23] MEDS: ENOXAPARIN SODIUM 40 MG/0.4 ML DISP.SYRIN SQ SCH (08:40)
[2022-07-23] MEDS: MIRALAX 17 GM POWD.PACK GT SCH (09:00)
--- NOTE | 2022-07-23 09:00 | NUR ---
RECEIVED PATIENT IN BED WITH EYES OPEN NON VERBAL WITH TRACH AND VENT WITH ADEQUATE SATS MAX ASSIST TURNED AND REPOSITIONED Q2H ON FIRST STEP CHAITANYA VERY STIFF ANARSACA ELEVATED BOTH ARMS ON THE PILLOW GT INTACT WITH VITAL 1.2 AT 65 ML/HR CECILIA WELL WITH NO REGURGITATION OR EMESIS AT THIS TIME TX TO LT HEEL MADE COMFORTABLE WILL OBSERVE.
[2022-07-23 10:15] LABS: EOSINOPHILS % (MANUAL) 36 % (0-8); LYMPHOCYTES % (MANUAL) 8 % (20-40); MONOCYTES % (MANUAL) 1 % (2-10); NEUTROPHILS % (MANUAL) 55 % (42-75)
[2022-07-23 11:50] VITALS: BP 131/72
[2022-07-23 16:15] VITALS: BP 129/62
--- NOTE | 2022-07-23 18:00 | NUR ---
REMAIN ON GT FEEDINGS WITH H2O FLUSHES ORDERED NO CHANGES IN CONDITION AT THIS TIME.
--- NOTE | 2022-07-23 21:40 | NUR ---
due medication scan tablet crushed and given via GT site CDI patent . EYE drops administered bilateral eyes with redness right eye with cataract.
--- NOTE | 2022-07-23 22:00 | NUR ---
300 ML OF H20 FLUSHES given via the GT q4 hourly .
[2022-07-24] VITALS: BP 126/68
--- NOTE | 2022-07-24 01:00 | NUR ---
oral care done suction patient via trach and via mouth.
[2022-07-24] MEDS: ALBUTEROL SULFATE 1.25 MG/3 ML NEBU NEB SCH ×4 (01:28→19:46)
[2022-07-24] MEDS: IPRATROPIUM BROMIDE 0.5 MG/2.5 ML NEBU NEB SCH ×4 (01:28→19:46)
--- NOTE | 2022-07-24 03:22 | NUR ---
with 2 Cnas help am care done bath patient changed soiled linens and Rice care done
[2022-07-24 04:00] VITALS: BP 127/71
[2022-07-24] MEDS: MIDODRINE HCL 5 MG TABLET GT SCH ×3 (05:21→21:24)
[2022-07-24] MEDS: POLYVINYL ALCOHOL OPHT DROPS 15 ML BOTTLE EACHEYE SCH ×3 (05:24→21:24)
--- NOTE | 2022-07-24 09:00 | NUR ---
PATIENT REMAINS ON [facility]#[id number]%-5 SATURATING 97-98%. PATIENT REQUIRES ON AND OFF TRACHEAL SUCTIONING FOR MODERATE AMOUNT OF WHITISH SECRETION. ORAL CARE DONE
[2022-07-24] MEDS: CHOLECALCIFEROL 1,000 UNIT TABLET GT SCH (09:33)
[2022-07-24] MEDS: MULTIVIT, IRON, MIN NO. 8, FA TABLET GT SCH (09:33)
[2022-07-24] MEDS: MIRALAX 17 GM POWD.PACK GT SCH (09:34)
[2022-07-24] MEDS: levETIRAcetam 500 MG/5 ML LIQUID UDC GT SCH (09:34)
[2022-07-24] MEDS: ASCORBIC ACID 500 MG TABLET GT SCH (09:34)
[2022-07-24] MEDS: PANTOPRAZOLE ORAL SUSPENSION 40 MG SUSPDR.PKT GT SCH (09:34)
[2022-07-24] MEDS: predniSONE 5 MG TABLET GT SCH (09:34)
[2022-07-24] MEDS: ENOXAPARIN SODIUM 40 MG/0.4 ML DISP.SYRIN SQ SCH (09:35)
[2022-07-24] MEDS: VITAL AF 1.2 1,000 ML LIQUID GT PRN (09:36)
[2022-07-24 11:39] VITALS: BP 134/75
--- NOTE | 2022-07-24 13:38 | NUR ---
TOLERATING TF WELL AT 65 MLS/HR VIA GT REMAINS ON ISOLATION FOR QUESTIONABLE SCABIES. SR ON MONITOR
--- NOTE | 2022-07-24 17:13 | NUR ---
RESULTS OF SCRAPING FOR SCABIES POSITIVE, HOSPITALIST Kenroy HOLLIDAY NOTIFIED WITH ORDERS
[2022-07-24 20:00] VITALS: BP 117/74
[2022-07-24] MEDS: IVERMECTIN 3 MG TABLET PO SCH (20:49)
[2022-07-24] MEDS: PERMETHRIN 5% CREAM 60 GM TUBE TP SCH (20:50)
[2022-07-25] VITALS: BP 106/69
[2022-07-25] MEDS: IPRATROPIUM BROMIDE 0.5 MG/2.5 ML NEBU NEB SCH ×4 (01:23→19:41)
[2022-07-25] MEDS: ALBUTEROL SULFATE 1.25 MG/3 ML NEBU NEB SCH ×4 (01:23→19:41)
[2022-07-25 04:00] VITALS: BP 124/69
[2022-07-25] MEDS: MIDODRINE HCL 5 MG TABLET GT SCH ×3 (06:00→22:29)
[2022-07-25] MEDS: POLYVINYL ALCOHOL OPHT DROPS 15 ML BOTTLE EACHEYE SCH ×3 (06:21→22:30)
[2022-07-25 06:26] LABS: HEMATOCRIT 26.6 % (36.7-47.1); MEAN CORPUSCULAR HEMOGLOBIN 32.4 uug (23.8-33.4); MEAN CORPUSCULAR VOLUME 99.9 fL (73.0-96.2); PLATELET COUNT (AUTO) 253 K/uL (152-348)
[2022-07-25 06:54] LABS: CREATININE 0.7 mg/dL (0.6-1.3); MAGNESIUM 1.8 mg/dL (1.8-2.4); PHOSPHOROUS 3.7 mg/dL (2.5-4.9); POTASSIUM 3.9 mmol/L (3.5-5.1)
[2022-07-25] MEDS: MIRALAX 17 GM POWD.PACK GT SCH (08:52)
[2022-07-25] MEDS: levETIRAcetam 500 MG/5 ML LIQUID UDC GT SCH (08:52)
[2022-07-25] MEDS: PANTOPRAZOLE ORAL SUSPENSION 40 MG SUSPDR.PKT GT SCH (08:53)
[2022-07-25] MEDS: CHOLECALCIFEROL 1,000 UNIT TABLET GT SCH (08:53)
[2022-07-25] MEDS: ASCORBIC ACID 500 MG TABLET GT SCH (08:53)
[2022-07-25] MEDS: predniSONE 5 MG TABLET GT SCH (08:53)
[2022-07-25] MEDS: MULTIVIT, IRON, MIN NO. 8, FA TABLET GT SCH (08:53)
[2022-07-25] MEDS: ENOXAPARIN SODIUM 40 MG/0.4 ML DISP.SYRIN SQ SCH (08:55)
--- NOTE | 2022-07-25 11:00 | NUR ---
pt was seen by the hospitalist.
--- NOTE | 2022-07-25 11:24 | NUR ---
bedbath done. contact precaution observed. all soiled linens disposed. pt relaxed and comfortable.
[2022-07-25 11:40] VITALS: BP 131/65
[2022-07-25] MEDS: VITAL AF 1.2 1,000 ML LIQUID GT PRN (14:00)
[2022-07-25 15:48] VITALS: BP 124/71
--- NOTE | 2022-07-25 16:48 | NUR ---
tolerated feeding well. no residual noted.
--- NOTE | 2022-07-25 17:50 | NUR ---
pt is comfortable with current vent setting. no respiratory distress noted.
[2022-07-25 20:00] VITALS: BP 133/75
[2022-07-25] MEDS: PERMETHRIN 5% CREAM 60 GM TUBE TP SCH (22:30)
[2022-07-25] MEDS: IVERMECTIN 3 MG TABLET PO SCH (22:30)
[2022-07-26] VITALS: BP 123/74
[2022-07-26] MEDS: ALBUTEROL SULFATE 1.25 MG/3 ML NEBU NEB SCH ×4 (01:49→19:37)
[2022-07-26] MEDS: IPRATROPIUM BROMIDE 0.5 MG/2.5 ML NEBU NEB SCH ×4 (01:49→19:37)
[2022-07-26 04:00] VITALS: BP 110/53
[2022-07-26] MEDS: MIDODRINE HCL 5 MG TABLET GT SCH ×3 (05:20→21:27)
[2022-07-26] MEDS: POLYVINYL ALCOHOL OPHT DROPS 15 ML BOTTLE EACHEYE SCH ×3 (06:00→22:02)
[2022-07-26 06:33] LABS: HEMATOCRIT 25.8 % (36.7-47.1); MEAN CORPUSCULAR HEMOGLOBIN 32.3 uug (23.8-33.4); MEAN CORPUSCULAR VOLUME 100.5 fL (73.0-96.2); PLATELET COUNT (AUTO) 207 K/uL (152-348)
[2022-07-26 06:53] LABS: CREATININE 0.7 mg/dL (0.6-1.3); MAGNESIUM 1.7 mg/dL (1.8-2.4); PHOSPHOROUS 3.5 mg/dL (2.5-4.9); POTASSIUM 3.9 mmol/L (3.5-5.1)
--- NOTE | 2022-07-26 07:30 | NUR ---
REPORT GIVEN TO ROBIN SALDAÑA
[2022-07-26] MEDS ORDERED: MAGNESIUM OXIDE 400 MG TABLET GT ONE (09:30)
[2022-07-26] MEDS: MIRALAX 17 GM POWD.PACK GT SCH (09:36)
[2022-07-26] MEDS: predniSONE 5 MG TABLET GT SCH (09:37)
[2022-07-26] MEDS: CHOLECALCIFEROL 1,000 UNIT TABLET GT SCH (09:37)
[2022-07-26] MEDS: ASCORBIC ACID 500 MG TABLET GT SCH (09:37)
[2022-07-26] MEDS: MULTIVIT, IRON, MIN NO. 8, FA TABLET GT SCH (09:37)
[2022-07-26] MEDS: PANTOPRAZOLE ORAL SUSPENSION 40 MG SUSPDR.PKT GT SCH (09:37)
[2022-07-26] MEDS: levETIRAcetam 500 MG/5 ML LIQUID UDC GT SCH (09:37)
[2022-07-26] MEDS: ENOXAPARIN SODIUM 40 MG/0.4 ML DISP.SYRIN SQ SCH (09:39)
[2022-07-26 11:49] VITALS: BP 135/58
[2022-07-26 16:16] LABS: *BILIRUBIN,URIN NEGATIVE (NEGATIVE); *BLOOD, URINE 1+ (NEGATIVE); *CLARITY,URINE CLOUDY (CLEAR); *COLOR,URINE YELLOW (YELLOW); *KETONES,URINE NEGATIVE (NEGATIVE); *UROBILINOGEN,URINE 0.2 E.U./dl (NORMAL); LEUKOCYTE ESTERASE ,URINE 3+ (NEGATIVE); NITRITE, URINE NEGATIVE (NEGATIVE); PH,URINE >=9.0 (5.0-8.0); UGLUCOSE NEGATIVE (NEGATIVE)
[2022-07-26 16:54] VITALS: BP 121/66
[2022-07-26 18:35] LABS: BACTERIA,URINE MODERATE /HPF (NONE SEEN); SQUAMOUS EPITHELIAL CELL,UR FEW /HPF (NONE SEEN); WBC,URINE 50-80 /HPF (0-3)
[2022-07-26 18:36] LABS: TRIPLE PHOSPHATE CRYSTAL,UR MODERATE /HPF (NONE SEEN)
[2022-07-26 18:40] LABS: URINE AMORPHOUS URATE FEW /HPF
[2022-07-26 20:00] VITALS: BP 121/61
[2022-07-26] MEDS: PERMETHRIN 5% CREAM 60 GM TUBE TP SCH (21:00)
[2022-07-27] VITALS: BP 109/67
[2022-07-27] MEDS: IPRATROPIUM BROMIDE 0.5 MG/2.5 ML NEBU NEB SCH ×3 (01:05→13:42)
[2022-07-27] MEDS: ALBUTEROL SULFATE 1.25 MG/3 ML NEBU NEB SCH ×3 (01:05→13:42)
[2022-07-27 04:00] VITALS: BP 132/57
[2022-07-27] MEDS: MIDODRINE HCL 5 MG TABLET GT SCH ×3 (05:44→21:23)
[2022-07-27] MEDS: POLYVINYL ALCOHOL OPHT DROPS 15 ML BOTTLE EACHEYE PRN ×2 (05:45→14:04)
[2022-07-27] MEDS: POLYVINYL ALCOHOL OPHT DROPS 15 ML BOTTLE EACHEYE SCH ×3 (06:15→21:19)
[2022-07-27 06:58] LABS: CREATININE 0.8 mg/dL (0.6-1.3); MAGNESIUM 1.9 mg/dL (1.8-2.4)
--- NOTE | 2022-07-27 07:30 | NUR ---
report given to carie mcgowan
[2022-07-27] MEDS: levETIRAcetam 500 MG/5 ML LIQUID UDC GT SCH (08:07)
[2022-07-27] MEDS: ASCORBIC ACID 500 MG TABLET GT SCH (08:07)
[2022-07-27] MEDS: ENOXAPARIN SODIUM 40 MG/0.4 ML DISP.SYRIN SQ SCH (08:08)
[2022-07-27] MEDS: CHOLECALCIFEROL 1,000 UNIT TABLET GT SCH (08:08)
[2022-07-27] MEDS: MULTIVIT, IRON, MIN NO. 8, FA TABLET GT SCH (08:08)
[2022-07-27] MEDS: PANTOPRAZOLE ORAL SUSPENSION 40 MG SUSPDR.PKT GT SCH (08:08)
[2022-07-27] MEDS: predniSONE 5 MG TABLET GT SCH (08:08)
[2022-07-27] MEDS: MIRALAX 17 GM POWD.PACK GT SCH (08:08)
[2022-07-27 08:32] VITALS: BP 139/68
[2022-07-27] MEDS: VITAL AF 1.2 1,000 ML LIQUID GT PRN (09:05)
[2022-07-27 16:28] VITALS: BP 139/68
--- NOTE | 2022-07-27 17:55 | NUR ---
Pt. has been stable during the shift. Body bath given and kept the pt. clean and dry. Wound dressing change done. Turned and repositioned every 2 hours and as needed. Isolation precaution followed. Will keep monitoring the patient.
[2022-07-27 20:34] VITALS: BP 137/76
[2022-07-27] MEDS: PERMETHRIN 5% CREAM 60 GM TUBE TP SCH (21:19)
[2022-07-28] VITALS: BP 120/65
[2022-07-28] MEDS: ALBUTEROL SULFATE 1.25 MG/3 ML NEBU NEB SCH ×6 (00:36→19:44)
[2022-07-28] MEDS: IPRATROPIUM BROMIDE 0.5 MG/2.5 ML NEBU NEB SCH ×6 (00:36→19:43)
[2022-07-28 05:00] VITALS: BP 128/66
[2022-07-28] MEDS: MIDODRINE HCL 5 MG TABLET GT SCH ×3 (06:00→21:01)
[2022-07-28] MEDS: POLYVINYL ALCOHOL OPHT DROPS 15 ML BOTTLE EACHEYE SCH ×3 (06:10→21:01)
[2022-07-28 06:23] LABS: HEMATOCRIT 29.3 % (36.7-47.1); MEAN CORPUSCULAR HEMOGLOBIN 32.1 uug (23.8-33.4); MEAN CORPUSCULAR VOLUME 99.9 fL (73.0-96.2); PLATELET COUNT (AUTO) 217 K/uL (152-348)
[2022-07-28 06:48] LABS: CREATININE 0.7 mg/dL (0.6-1.3); MAGNESIUM 1.9 mg/dL (1.8-2.4); POTASSIUM 4.2 mmol/L (3.5-5.1)
[2022-07-28] MEDS: levETIRAcetam 500 MG/5 ML LIQUID UDC GT SCH (09:04)
[2022-07-28] MEDS: ASCORBIC ACID 500 MG TABLET GT SCH (09:04)
[2022-07-28] MEDS: MIRALAX 17 GM POWD.PACK GT SCH (09:04)
[2022-07-28] MEDS: MULTIVIT, IRON, MIN NO. 8, FA TABLET GT SCH (09:04)
[2022-07-28] MEDS: predniSONE 5 MG TABLET GT SCH (09:04)
[2022-07-28] MEDS: CHOLECALCIFEROL 1,000 UNIT TABLET GT SCH (09:04)
[2022-07-28] MEDS: ENOXAPARIN SODIUM 40 MG/0.4 ML DISP.SYRIN SQ SCH (09:06)
[2022-07-28] MEDS: PANTOPRAZOLE ORAL SUSPENSION 40 MG SUSPDR.PKT GT SCH (09:07)
[2022-07-28 11:45] VITALS: BP 131/69
[2022-07-28] MEDS: VITAL AF 1.2 1,000 ML LIQUID GT PRN (14:33)
[2022-07-28 17:50] VITALS: BP 129/78
--- NOTE | 2022-07-28 18:18 | NUR ---
Pt. has been stable during the shift. Pt. requires max assist. Body bath given and kept the pt. clean and dry. Wound dressing change done. Turned and repositioned every 2 hours and as needed. Isolation precaution followed. Will keep monitoring the patient.
[2022-07-28 20:49] VITALS: BP 137/83
[2022-07-28] MEDS: PERMETHRIN 5% CREAM 60 GM TUBE TP SCH (21:00)
[2022-07-29] MEDS: IPRATROPIUM BROMIDE 0.5 MG/2.5 ML NEBU NEB SCH ×4 (01:23→19:05)
[2022-07-29] MEDS: ALBUTEROL SULFATE 1.25 MG/3 ML NEBU NEB SCH ×4 (01:23→19:05)
[2022-07-29 04:15] VITALS: BP 139/71
[2022-07-29] MEDS: MIDODRINE HCL 5 MG TABLET GT SCH ×3 (06:00→22:00)
[2022-07-29] MEDS: POLYVINYL ALCOHOL OPHT DROPS 15 ML BOTTLE EACHEYE SCH ×3 (06:25→22:01)
[2022-07-29] MEDS: MIRALAX 17 GM POWD.PACK GT SCH (08:10)
[2022-07-29] MEDS: CHOLECALCIFEROL 1,000 UNIT TABLET GT SCH (08:10)
[2022-07-29] MEDS: levETIRAcetam 500 MG/5 ML LIQUID UDC GT SCH (08:10)
[2022-07-29] MEDS: ASCORBIC ACID 500 MG TABLET GT SCH (08:10)
[2022-07-29] MEDS: predniSONE 5 MG TABLET GT SCH (08:10)
[2022-07-29] MEDS: PANTOPRAZOLE ORAL SUSPENSION 40 MG SUSPDR.PKT GT SCH (08:10)
[2022-07-29] MEDS: MULTIVIT, IRON, MIN NO. 8, FA TABLET GT SCH (08:10)
[2022-07-29] MEDS: VITAL AF 1.2 1,000 ML LIQUID GT PRN (08:11)
[2022-07-29] MEDS: ENOXAPARIN SODIUM 40 MG/0.4 ML DISP.SYRIN SQ SCH (08:11)
[2022-07-29 16:09] VITALS: BP 154/85
[2022-07-29 20:29] VITALS: BP 139/85
[2022-07-29] MEDS ORDERED: PERMETHRIN 5% CREAM 60 GM TUBE TP ONE (20:46)
[2022-07-29] MEDS: PERMETHRIN 5% CREAM 60 GM TUBE TP SCH (22:01)
[2022-07-29 23:36] VITALS: BP 135/77
[2022-07-30] MEDS: IPRATROPIUM BROMIDE 0.5 MG/2.5 ML NEBU NEB SCH ×4 (00:45→20:01)
[2022-07-30] MEDS: ALBUTEROL SULFATE 1.25 MG/3 ML NEBU NEB SCH ×4 (00:45→20:00)
[2022-07-30 04:30] VITALS: BP 147/88
[2022-07-30] MEDS: POLYVINYL ALCOHOL OPHT DROPS 15 ML BOTTLE EACHEYE SCH ×3 (05:58→23:19)
[2022-07-30] MEDS: MIDODRINE HCL 5 MG TABLET GT SCH ×3 (05:58→22:00)
[2022-07-30 06:57] LABS: HEMATOCRIT 24.9 % (36.7-47.1); MEAN CORPUSCULAR VOLUME 99.1 fL (73.0-96.2); PLATELET COUNT (AUTO) 250 K/uL (152-348)
[2022-07-30 07:06] LABS: CREATININE 0.7 mg/dL (0.6-1.3); MAGNESIUM 1.9 mg/dL (1.8-2.4); PHOSPHOROUS 3.9 mg/dL (2.5-4.9); POTASSIUM 3.8 mmol/L (3.5-5.1)
[2022-07-30] MEDS: levETIRAcetam 500 MG/5 ML LIQUID UDC GT SCH (09:22)
[2022-07-30] MEDS: MIRALAX 17 GM POWD.PACK GT SCH (09:22)
[2022-07-30] MEDS: PANTOPRAZOLE ORAL SUSPENSION 40 MG SUSPDR.PKT GT SCH (09:22)
[2022-07-30] MEDS: ASCORBIC ACID 500 MG TABLET GT SCH (09:23)
[2022-07-30] MEDS: predniSONE 5 MG TABLET GT SCH (09:23)
[2022-07-30] MEDS: MULTIVIT, IRON, MIN NO. 8, FA TABLET GT SCH (09:23)
[2022-07-30] MEDS: CHOLECALCIFEROL 1,000 UNIT TABLET GT SCH (09:23)
[2022-07-30] MEDS: ENOXAPARIN SODIUM 40 MG/0.4 ML DISP.SYRIN SQ SCH (09:24)
[2022-07-30 10:49] LABS: BAND % (MANUAL) 1 % (0-10); EOSINOPHILS % (MANUAL) 33 % (0-8); LYMPHOCYTES % (MANUAL) 16 % (20-40); MONOCYTES % (MANUAL) 5 % (2-10); NEUTROPHILS % (MANUAL) 45 % (42-75)
[2022-07-30 11:46] VITALS: BP 131/80
[2022-07-30 16:00] VITALS: BP 133/77
--- NOTE | 2022-07-30 19:35 | NUR ---
Received patient non verbal, but response to painful stimuli, hob elevated, no sob no s/s of chest pain, on trach to vent tolerate well, no desaturation noted, on GTF tolerate well no nausea/no vomiting noted, on Low air loss mattress, spangler cath patent draining with amy color urine in moderate amount. Patient on contact isolation due scabies, cont to monitor.
[2022-07-30 19:48] VITALS: BP 139/76
[2022-07-30] MEDS: VITAL AF 1.2 1,000 ML LIQUID GT PRN (21:37)
[2022-07-30] MEDS ORDERED: PERMETHRIN 5% CREAM 60 GM TUBE TP ONE (23:06)
[2022-07-30] MEDS: PERMETHRIN 5% CREAM 60 GM TUBE TP SCH (23:19)
[2022-07-31 00:13] VITALS: BP 146/82
[2022-07-31] MEDS: ALBUTEROL SULFATE 1.25 MG/3 ML NEBU NEB SCH ×4 (01:20→19:52)
[2022-07-31] MEDS: IPRATROPIUM BROMIDE 0.5 MG/2.5 ML NEBU NEB SCH ×4 (01:20→19:52)
[2022-07-31 04:00] VITALS: BP 126/70
[2022-07-31] MEDS: MIDODRINE HCL 5 MG TABLET GT SCH ×3 (06:00→21:36)
[2022-07-31] MEDS: POLYVINYL ALCOHOL OPHT DROPS 15 ML BOTTLE EACHEYE SCH ×3 (07:17→21:35)
--- NOTE | 2022-07-31 07:20 | NUR ---
Patient remain non verbal, cont on isolation, elimite cream applied, tolerate well, sob no s/s of chest pain, suctioned with yellow color sputum in moderate amount rendered good oral care, tx done on multiple wounds, endorse to next shift. cont to monitor.
[2022-07-31] MEDS: levETIRAcetam 500 MG/5 ML LIQUID UDC GT SCH (09:35)
[2022-07-31] MEDS: PANTOPRAZOLE ORAL SUSPENSION 40 MG SUSPDR.PKT GT SCH (09:35)
[2022-07-31] MEDS: MIRALAX 17 GM POWD.PACK GT SCH (09:35)
[2022-07-31] MEDS: MULTIVIT, IRON, MIN NO. 8, FA TABLET GT SCH (09:37)
[2022-07-31] MEDS: predniSONE 5 MG TABLET GT SCH (09:37)
[2022-07-31] MEDS: ASCORBIC ACID 500 MG TABLET GT SCH (09:37)
[2022-07-31] MEDS: CHOLECALCIFEROL 1,000 UNIT TABLET GT SCH (09:37)
[2022-07-31] MEDS: ENOXAPARIN SODIUM 40 MG/0.4 ML DISP.SYRIN SQ SCH (09:38)
--- NOTE | 2022-07-31 10:30 | NUR ---
When IV line was difficult to flush, it flushed very slowly. No IV running at this time. Will endorse.
[2022-07-31 11:41] VITALS: BP 129/69
[2022-07-31 16:00] VITALS: BP 128/67
[2022-07-31] MEDS ORDERED: MEROPENEM 1 G in IV NORMAL SALINE 100 ML IV SCH (19:45)
[2022-07-31 20:00] VITALS: BP 118/72
[2022-07-31] MEDS ORDERED: MEROPENEM 1 G in IV NORMAL SALINE 100 ML IV ONE (20:00)
[2022-07-31] MEDS ORDERED: MEROPENEM 1GM/NS 100ML IVPB **ER PYXIS ONLY IV ONE (20:31)
[2022-07-31] MEDS: VITAL AF 1.2 1,000 ML LIQUID GT PRN (20:44)
[2022-07-31] MEDS: IVERMECTIN 3 MG TABLET PO SCH (21:56)
[2022-08-01] VITALS: BP 113/65
[2022-08-01] MEDS: IPRATROPIUM BROMIDE 0.5 MG/2.5 ML NEBU NEB SCH ×4 (00:44→19:40)
[2022-08-01] MEDS: ALBUTEROL SULFATE 1.25 MG/3 ML NEBU NEB SCH ×4 (00:44→19:40)
[2022-08-01 04:00] VITALS: BP 111/60
[2022-08-01] MEDS: POLYVINYL ALCOHOL OPHT DROPS 15 ML BOTTLE EACHEYE SCH ×3 (06:31→21:56)
[2022-08-01] MEDS: MIDODRINE HCL 5 MG TABLET GT SCH ×3 (06:32→21:57)
[2022-08-01] MEDS: PANTOPRAZOLE ORAL SUSPENSION 40 MG SUSPDR.PKT GT SCH (09:36)
[2022-08-01] MEDS: predniSONE 5 MG TABLET GT SCH (09:36)
[2022-08-01] MEDS: MIRALAX 17 GM POWD.PACK GT SCH (09:36)
[2022-08-01] MEDS: MULTIVIT, IRON, MIN NO. 8, FA TABLET GT SCH (09:36)
[2022-08-01] MEDS: levETIRAcetam 500 MG/5 ML LIQUID UDC GT SCH (09:36)
[2022-08-01] MEDS: CHOLECALCIFEROL 1,000 UNIT TABLET GT SCH (09:36)
[2022-08-01] MEDS: MEROPENEM 1 G in IV NORMAL SALINE 100 ML IV SCH ×2 (09:37→21:34)
[2022-08-01] MEDS: ASCORBIC ACID 500 MG TABLET GT SCH (09:37)
[2022-08-01] MEDS: ENOXAPARIN SODIUM 40 MG/0.4 ML DISP.SYRIN SQ SCH (09:42)
[2022-08-01 11:30] VITALS: BP 124/71
[2022-08-01] MEDS: VITAL AF 1.2 1,000 ML LIQUID GT PRN (15:58)
[2022-08-01 16:00] VITALS: BP 153/74
--- NOTE | 2022-08-01 18:25 | NUR ---
shift note tolerated well in between care. comfortable with current vent setting. no resp distress noted. prn oral care done. wound tx done. q2hr reposition done. prn trach suction done. all need attended. safety measure in placed. contact precaution observed.
[2022-08-01 20:00] VITALS: BP 122/64
[2022-08-01] MEDS: IVERMECTIN 3 MG TABLET PO SCH (21:56)
[2022-08-02] VITALS: BP 114/65
[2022-08-02] MEDS: ALBUTEROL SULFATE 1.25 MG/3 ML NEBU NEB SCH ×4 (01:30→19:17)
[2022-08-02] MEDS: IPRATROPIUM BROMIDE 0.5 MG/2.5 ML NEBU NEB SCH ×4 (01:30→19:17)
[2022-08-02 04:00] VITALS: BP 110/56
[2022-08-02] MEDS: MIDODRINE HCL 5 MG TABLET GT SCH ×3 (05:49→21:08)
[2022-08-02] MEDS: POLYVINYL ALCOHOL OPHT DROPS 15 ML BOTTLE EACHEYE SCH ×3 (06:01→21:06)
[2022-08-02 06:40] LABS: HEMATOCRIT 24.9 % (36.7-47.1); MEAN CORPUSCULAR HEMOGLOBIN 31.8 uug (23.8-33.4); MEAN CORPUSCULAR VOLUME 99.1 fL (73.0-96.2); PLATELET COUNT (AUTO) 246 K/uL (152-348)
[2022-08-02 06:56] LABS: BILIRUBIN,TOTAL 0.5 mg/dL (0.2-1.0); CREATININE 0.8 mg/dL (0.6-1.3); MAGNESIUM 1.9 mg/dL (1.8-2.4); PHOSPHOROUS 3.4 mg/dL (2.5-4.9); TOTAL PROTEIN, SERUM 7.3 g/dL (6.4-8.2)
--- NOTE | 2022-08-02 06:57 | NUR ---
END OF SHIFT REPORT Uneventful night; VSS; oral and trache care done; needs attended; continue to monitor; continue plan of care.
--- NOTE | 2022-08-02 07:30 | NUR ---
Sleeping, appears comfortable. Trach to vent with settings of AC 26, TV 450. PEEP 5, FIO2 change to 35% after ABG report
[2022-08-02 08:11] LABS: EOSINOPHILS % (MANUAL) 18 % (0-8); LYMPHOCYTES % (MANUAL) 20 % (20-40); MONOCYTES % (MANUAL) 6 % (2-10); NEUTROPHILS % (MANUAL) 56 % (42-75)
[2022-08-02 08:11] LABS: ABG BASE EXCESS 1.2 mmol/L; ABG HCO3 26.2 mmol/L; ABG PCO2 43.2 mmHg (35.0-45.0); ABG PO2 65.9 mmHg (75.0-100.0); ABG SITE RIGHT RADIAL; ABG TOTAL HEMOGLOBIN 9.2 G/dL (13.5-18.0); COHb 0.9 % (0.5-1.5); MetHb 0.5 % (0.0-1.5); O2Hb 90.9 % (94.0-97.0); VENT MODE VENT - A/C; VT, ABG 450 mL
[2022-08-02] MEDS: MIRALAX 17 GM POWD.PACK GT SCH (09:57)
[2022-08-02] MEDS: predniSONE 5 MG TABLET GT SCH (09:57)
[2022-08-02] MEDS: MEROPENEM 1 G in IV NORMAL SALINE 100 ML IV SCH ×2 (09:58→21:05)
[2022-08-02] MEDS: MULTIVIT, IRON, MIN NO. 8, FA TABLET GT SCH (09:58)
[2022-08-02] MEDS: CHOLECALCIFEROL 1,000 UNIT TABLET GT SCH (09:58)
[2022-08-02] MEDS: ASCORBIC ACID 500 MG TABLET GT SCH (09:58)
[2022-08-02] MEDS: PANTOPRAZOLE ORAL SUSPENSION 40 MG SUSPDR.PKT GT SCH (09:58)
[2022-08-02] MEDS: levETIRAcetam 500 MG/5 ML LIQUID UDC GT SCH (09:59)
[2022-08-02] MEDS: ENOXAPARIN SODIUM 40 MG/0.4 ML DISP.SYRIN SQ SCH (09:59)
--- NOTE | 2022-08-02 12:00 | NUR ---
Oral care and trach care done. Secretions suctioned.
--- NOTE | 2022-08-02 14:00 | NUR ---
Bed bath given and wound care done as ordered. Repositioned comfortably.
[2022-08-02 14:51] VITALS: BP 122/65
[2022-08-02 16:00] VITALS: BP 133/69
--- NOTE | 2022-08-02 17:51 | NUR ---
Secretions suctioned. Repositioned comfortably. Afebrile
[2022-08-02] MEDS: PERMETHRIN 5% CREAM 60 GM TUBE TP SCH (21:06)
--- NOTE | 2022-08-02 22:00 | NUR ---
RECEIVED REPORT FROM AM NURSE PT RESPONDS TO TACTILE STIMULI. PT REPOSITIONED ORDERED TOLERATED WELL NO SIGNS OF DISTRESSED NOTED. FEEDING WAS CHANGED AND INSERTED NEW TUBING PT HAS 5ML RESIDUAL AND GTUBE WILL BE FLUSHED ORDERED. PERMETHRMS CREME APPLIED FROM HEAD TO FEET ALONG GENITAL AREA AND ABD FOLDS PT KICKED AT STAFF BUT ABLE TO FINISH.PATIENT GIVEN TO NURSE DANG REPORT GIVEN.
[2022-08-02 22:59] VITALS: BP 122/68
[2022-08-03] MEDS: IPRATROPIUM BROMIDE 0.5 MG/2.5 ML NEBU NEB SCH ×4 (00:45→20:08)
[2022-08-03] MEDS: ALBUTEROL SULFATE 1.25 MG/3 ML NEBU NEB SCH ×4 (00:46→20:08)
[2022-08-03 00:47] VITALS: BP 120/70
--- NOTE | 2022-08-03 00:52 | NUR ---
informed OF PT ABDOMEN BEING DISTENDED AND FIRM, XRAY ORDERED AND FDG PUT ON HOLD
[2022-08-03] MEDS: POLYVINYL ALCOHOL OPHT DROPS 15 ML BOTTLE EACHEYE PRN ×3 (06:49→21:22)
[2022-08-03] MEDS: MIDODRINE HCL 5 MG TABLET GT SCH ×3 (06:50→21:21)
[2022-08-03] MEDS: POLYVINYL ALCOHOL OPHT DROPS 15 ML BOTTLE EACHEYE SCH ×2 (06:54→22:00)
[2022-08-03 07:00] LABS: CREATININE 0.8 mg/dL (0.6-1.3); MAGNESIUM 1.9 mg/dL (1.8-2.4)
[2022-08-03 07:03] LABS: HEMATOCRIT 24.2 % (36.7-47.1); MEAN CORPUSCULAR VOLUME 98.2 fL (73.0-96.2)
[2022-08-03 07:07] LABS: MEAN CORPUSCULAR HEMOGLOBIN 32.1 uug (23.8-33.4); PLATELET COUNT (AUTO) 287 K/uL (152-348)
--- NOTE | 2022-08-03 07:23 | NUR ---
REPORT GIVEN TO ROBIN DICKINSON
[2022-08-03 08:00] VITALS: BP 127/67
[2022-08-03] MEDS: MIRALAX 17 GM POWD.PACK GT SCH (08:54)
[2022-08-03] MEDS: CHOLECALCIFEROL 1,000 UNIT TABLET GT SCH (08:54)
[2022-08-03] MEDS: MULTIVIT, IRON, MIN NO. 8, FA TABLET GT SCH (08:54)
[2022-08-03] MEDS: ASCORBIC ACID 500 MG TABLET GT SCH (08:54)
[2022-08-03] MEDS: levETIRAcetam 500 MG/5 ML LIQUID UDC GT SCH (08:54)
[2022-08-03] MEDS: predniSONE 5 MG TABLET GT SCH (08:54)
[2022-08-03] MEDS: MEROPENEM 1 G in IV NORMAL SALINE 100 ML IV SCH ×2 (08:55→21:21)
[2022-08-03] MEDS: ENOXAPARIN SODIUM 40 MG/0.4 ML DISP.SYRIN SQ SCH (08:57)
[2022-08-03] MEDS: PANTOPRAZOLE ORAL SUSPENSION 40 MG SUSPDR.PKT GT SCH (08:59)
[2022-08-03 11:28] LABS: BAND % (MANUAL) 2 % (0-10); EOSINOPHILS % (MANUAL) 23 % (0-8); LYMPHOCYTES % (MANUAL) 14 % (20-40); MONOCYTES % (MANUAL) 9 % (2-10); NEUTROPHILS % (MANUAL) 52 % (42-75)
[2022-08-03 12:00] VITALS: BP 133/67
[2022-08-03 16:00] VITALS: BP 128/60
--- NOTE | 2022-08-03 19:20 | NUR ---
feeding still held per md. adb xray still not resulted. md aware.
--- NOTE | 2022-08-03 19:22 | NUR ---
pt is in no acute distress. comfortable with the current vent setting. pt is bedbound. R IJ cath dressing changed. GTube patent and flushed. q2hr reposition done. oral care done. PRN trach suction done. 300ml q6hr flushed done. all need attended. safety measure in placed. contract precaution observed.
[2022-08-03 20:13] VITALS: BP 134/72
[2022-08-04 00:11] VITALS: BP 142/64
[2022-08-04] MEDS: IPRATROPIUM BROMIDE 0.5 MG/2.5 ML NEBU NEB SCH ×4 (01:07→19:21)
[2022-08-04] MEDS: ALBUTEROL SULFATE 1.25 MG/3 ML NEBU NEB SCH ×4 (01:08→19:21)
[2022-08-04 04:11] VITALS: BP 129/66
[2022-08-04] MEDS: MIDODRINE HCL 5 MG TABLET GT SCH ×3 (05:39→21:02)
[2022-08-04] MEDS: POLYVINYL ALCOHOL OPHT DROPS 15 ML BOTTLE EACHEYE PRN ×2 (05:39→21:03)
[2022-08-04] MEDS: POLYVINYL ALCOHOL OPHT DROPS 15 ML BOTTLE EACHEYE SCH ×3 (06:00→22:00)
--- NOTE | 2022-08-04 07:30 | NUR ---
REPORT GIVEN TO ROBIN DICKINSON
--- NOTE | 2022-08-04 07:30 | NUR ---
Received report from Argelia Cisneros RN pt is stable and on ventilator with good saturation and HR in the 40s - 50s which is the base line for the patient.
[2022-08-04 08:00] VITALS: BP 127/58
[2022-08-04] MEDS: MULTIVIT, IRON, MIN NO. 8, FA TABLET GT SCH (09:57)
[2022-08-04] MEDS: ENOXAPARIN SODIUM 40 MG/0.4 ML DISP.SYRIN SQ SCH (09:57)
[2022-08-04] MEDS: PANTOPRAZOLE ORAL SUSPENSION 40 MG SUSPDR.PKT GT SCH (09:57)
[2022-08-04] MEDS: ASCORBIC ACID 500 MG TABLET GT SCH (09:57)
[2022-08-04] MEDS: MEROPENEM 1 G in IV NORMAL SALINE 100 ML IV SCH ×2 (09:57→21:02)
[2022-08-04] MEDS: levETIRAcetam 500 MG/5 ML LIQUID UDC GT SCH (09:57)
[2022-08-04] MEDS: CHOLECALCIFEROL 1,000 UNIT TABLET GT SCH (09:57)
[2022-08-04] MEDS: predniSONE 5 MG TABLET GT SCH (09:57)
[2022-08-04] MEDS: MIRALAX 17 GM POWD.PACK GT SCH (09:57)
[2022-08-04 11:56] VITALS: BP 122/69
[2022-08-04 16:00] VITALS: BP 136/68
[2022-08-04 19:50] VITALS: BP 119/48
[2022-08-05 00:03] VITALS: BP 127/61
[2022-08-05] MEDS: ALBUTEROL SULFATE 1.25 MG/3 ML NEBU NEB SCH ×4 (00:50→19:52)
[2022-08-05] MEDS: IPRATROPIUM BROMIDE 0.5 MG/2.5 ML NEBU NEB SCH ×4 (00:50→19:52)
[2022-08-05 04:00] VITALS: BP 123/57
[2022-08-05] MEDS: MIDODRINE HCL 5 MG TABLET GT SCH ×3 (06:09→21:23)
[2022-08-05] MEDS: POLYVINYL ALCOHOL OPHT DROPS 15 ML BOTTLE EACHEYE PRN (06:09)
[2022-08-05] MEDS: POLYVINYL ALCOHOL OPHT DROPS 15 ML BOTTLE EACHEYE SCH ×3 (06:51→21:24)
--- NOTE | 2022-08-05 07:30 | NUR ---
REPORT GIVEN TO ROBIN DICKINSON
[2022-08-05 08:00] VITALS: BP 125/68
[2022-08-05] MEDS: levETIRAcetam 500 MG/5 ML LIQUID UDC GT SCH (09:39)
[2022-08-05] MEDS: MIRALAX 17 GM POWD.PACK GT SCH (09:39)
[2022-08-05] MEDS: MEROPENEM 1 G in IV NORMAL SALINE 100 ML IV SCH ×2 (09:39→20:37)
[2022-08-05] MEDS: predniSONE 5 MG TABLET GT SCH (09:40)
[2022-08-05] MEDS: CHOLECALCIFEROL 1,000 UNIT TABLET GT SCH (09:40)
[2022-08-05] MEDS: ASCORBIC ACID 500 MG TABLET GT SCH (09:40)
[2022-08-05] MEDS: PANTOPRAZOLE ORAL SUSPENSION 40 MG SUSPDR.PKT GT SCH (09:40)
[2022-08-05] MEDS: MULTIVIT, IRON, MIN NO. 8, FA TABLET GT SCH (09:40)
[2022-08-05] MEDS: ENOXAPARIN SODIUM 40 MG/0.4 ML DISP.SYRIN SQ SCH (09:43)
[2022-08-05 12:00] VITALS: BP 118/49
[2022-08-05 16:00] VITALS: BP 132/51
--- NOTE | 2022-08-05 19:40 | NUR ---
Received patient in bed, eyes open, response to tactile and painful stimuli, hob elevated, on GTF tolerate well no n/v, no residual noted, remains on contact isolation due to skin rashes. Patient is trach to vent, no desaturation noted, RT tx done as ordered, trach intact, turn and reposition, spangler cath patent, no s/s of pain at this time, cont ABX for Uti/Sepsis, right jugular line patent, cont to monitor.
[2022-08-06] VITALS: BP 114/72
[2022-08-06] MEDS: ALBUTEROL SULFATE 1.25 MG/3 ML NEBU NEB SCH ×4 (01:10→19:33)
[2022-08-06] MEDS: IPRATROPIUM BROMIDE 0.5 MG/2.5 ML NEBU NEB SCH ×4 (01:10→19:33)
[2022-08-06 04:00] VITALS: BP 119/70
[2022-08-06] MEDS: MIDODRINE HCL 5 MG TABLET GT SCH ×3 (06:43→22:36)
[2022-08-06] MEDS: POLYVINYL ALCOHOL OPHT DROPS 15 ML BOTTLE EACHEYE SCH ×3 (06:43→22:36)
[2022-08-06 07:14] LABS: HEMATOCRIT 26.7 % (36.7-47.1); MEAN CORPUSCULAR HEMOGLOBIN 32.2 uug (23.8-33.4); MEAN CORPUSCULAR VOLUME 98.1 fL (73.0-96.2); PLATELET COUNT (AUTO) 419 K/uL (152-348)
[2022-08-06 07:42] LABS: ALKALINE PHOSPHATASE 200 U/L (50-136); BILIRUBIN,TOTAL 0.5 mg/dL (0.2-1.0); CARBON DIOXIDE 31 mmol/L (21-32); CHLORIDE 102 mmol/L (98-107); CREATININE 0.7 mg/dL (0.6-1.3); GLUCOSE 102 mg/dL (74-106); PHOSPHOROUS 4.5 mg/dL (2.5-4.9); POTASSIUM 3.9 mmol/L (3.5-5.1); TOTAL PROTEIN, SERUM 7.9 g/dL (6.4-8.2); UREA NITROGEN, BLOOD 16 mg/dL (7-18)
[2022-08-06 09:12] LABS: ALANINE AMINOTRANSFERASE 45 U/L (16-63); ASPARTATE AMINOTRANSFERASE 27 U/L (15-37); MAGNESIUM 1.7 mg/dL (1.8-2.4)
[2022-08-06] MEDS: MULTIVIT, IRON, MIN NO. 8, FA TABLET GT SCH (09:54)
[2022-08-06] MEDS: PANTOPRAZOLE ORAL SUSPENSION 40 MG SUSPDR.PKT GT SCH (09:54)
[2022-08-06] MEDS: predniSONE 5 MG TABLET GT SCH (09:54)
[2022-08-06] MEDS: CHOLECALCIFEROL 1,000 UNIT TABLET GT SCH (09:54)
[2022-08-06] MEDS: levETIRAcetam 500 MG/5 ML LIQUID UDC GT SCH (09:55)
[2022-08-06] MEDS: MIRALAX 17 GM POWD.PACK GT SCH (09:55)
[2022-08-06] MEDS: ASCORBIC ACID 500 MG TABLET GT SCH (09:55)
[2022-08-06] MEDS: ENOXAPARIN SODIUM 40 MG/0.4 ML DISP.SYRIN SQ SCH (09:56)
[2022-08-06] MEDS: MEROPENEM 1 G in IV NORMAL SALINE 100 ML IV SCH ×2 (09:59→20:33)
[2022-08-06 11:36] VITALS: BP 127/73
[2022-08-06 16:00] VITALS: BP 130/79
--- NOTE | 2022-08-06 19:30 | NUR ---
Received patient lying in bed. Obtunded, non-verbal. In no apparent distress. Sinus manny on tele with HR of 55/min. IJ on right side intact and patent. Trach to vent intact. GT feeding infusing. Rice catheter intact and draining via gravity. Isolation precaution observed. Safety measure maintained.
[2022-08-06 20:00] VITALS: BP 131/70
[2022-08-06] MEDS: PERMETHRIN 5% CREAM 60 GM TUBE TP SCH (20:34)
[2022-08-06] MEDS: VITAL AF 1.2 1,000 ML LIQUID GT PRN (22:36)
[2022-08-07] VITALS: BP 126/67
[2022-08-07] MEDS: IPRATROPIUM BROMIDE 0.5 MG/2.5 ML NEBU NEB SCH ×4 (00:37→21:40)
[2022-08-07] MEDS: ALBUTEROL SULFATE 1.25 MG/3 ML NEBU NEB SCH ×4 (00:37→21:40)
[2022-08-07 04:00] VITALS: BP 119/68
[2022-08-07] MEDS: POLYVINYL ALCOHOL OPHT DROPS 15 ML BOTTLE EACHEYE SCH ×3 (05:50→21:48)
[2022-08-07] MEDS: MIDODRINE HCL 5 MG TABLET GT SCH ×3 (05:50→21:05)
--- NOTE | 2022-08-07 06:40 | NUR ---
Suction secretions PRN. GT feeding and flushing well tolerated. Rice catheter intact and draining via gravity. Isolation precaution maintained.
[2022-08-07] MEDS: MULTIVIT, IRON, MIN NO. 8, FA TABLET GT SCH (09:28)
[2022-08-07] MEDS: ASCORBIC ACID 500 MG TABLET GT SCH (09:28)
[2022-08-07] MEDS: CHOLECALCIFEROL 1,000 UNIT TABLET GT SCH (09:28)
[2022-08-07] MEDS: predniSONE 5 MG TABLET GT SCH (09:28)
[2022-08-07] MEDS: PANTOPRAZOLE ORAL SUSPENSION 40 MG SUSPDR.PKT GT SCH (09:29)
[2022-08-07] MEDS: levETIRAcetam 500 MG/5 ML LIQUID UDC GT SCH (09:29)
[2022-08-07] MEDS: ENOXAPARIN SODIUM 40 MG/0.4 ML DISP.SYRIN SQ SCH (09:30)
[2022-08-07] MEDS: MIRALAX 17 GM POWD.PACK GT SCH (09:31)
[2022-08-07 11:52] VITALS: BP 126/67
[2022-08-07] MEDS ORDERED: IVERMECTIN 3 MG TABLET PO ONE ×2 (13:00→21:00)
[2022-08-07 16:00] VITALS: BP 126/64
--- NOTE | 2022-08-07 19:03 | NUR ---
PATIENT COMPLETE DEPENDENT WITH HIS CARE, ASSISTED WITH ADLS THROUGH OUT THE SHIFT. TOTAL BED BATH PROVIDED. WOUND CARE & TX TO RTLE DONE ORDERED; SUCTIONED PATIENT ORALLY AND VIA TRACH PRN TO AID IN REMOVAL OF ORAL SECRETIONS. GT FEEDING AND FLUIDS ADMINISTERED. HOB KEPT ELEVATED AT ALL TIMES. VENTILATOR IN CORRECT SETTINGS AND PROPER FUNCTION. SCHEDULED MEDS ADMINISTERED ORDERED. REPOSITIONED Q2HRS TO PROMOTE COMFORT AND FACILITATE PRESSURE RELIEF. CONTINUES ON ISOLATION PRECAUTIONS AND TREATMENT FOR SCABIES. ISOLATION PRECAUTIONS STRICTLY OBSERVED & CONTAINED. ALL NEEDS ANTICIPATED AND MET, NO CLOVIS NOTED DURING SHIFT. AT BEGINNING OF SHIFT WAS INFORMED BY NURSE THAT PATIENT WOULD BE DC TO A SNF. HOWEVER, LATER ON ORDER WAS CANCELLED.
[2022-08-07 20:00] VITALS: BP 131/78
[2022-08-07] MEDS: POLYVINYL ALCOHOL OPHT DROPS 15 ML BOTTLE EACHEYE PRN (21:06)
[2022-08-08] MEDS: IPRATROPIUM BROMIDE 0.5 MG/2.5 ML NEBU NEB SCH ×4 (01:57→19:28)
[2022-08-08] MEDS: ALBUTEROL SULFATE 1.25 MG/3 ML NEBU NEB SCH ×4 (01:58→19:28)
[2022-08-08 04:00] VITALS: BP 128/75
[2022-08-08] MEDS: MIDODRINE HCL 5 MG TABLET GT SCH ×3 (05:12→21:01)
[2022-08-08] MEDS: POLYVINYL ALCOHOL OPHT DROPS 15 ML BOTTLE EACHEYE PRN (05:13)
[2022-08-08] MEDS: POLYVINYL ALCOHOL OPHT DROPS 15 ML BOTTLE EACHEYE SCH ×3 (05:14→21:02)
[2022-08-08 07:04] LABS: HEMATOCRIT 27.4 % (36.7-47.1); MEAN CORPUSCULAR HEMOGLOBIN 32.4 uug (23.8-33.4); MEAN CORPUSCULAR VOLUME 97.5 fL (73.0-96.2); PLATELET COUNT (AUTO) 467 K/uL (152-348)
[2022-08-08 07:24] LABS: CREATININE 0.7 mg/dL (0.6-1.3); MAGNESIUM 1.7 mg/dL (1.8-2.4); PHOSPHOROUS 3.6 mg/dL (2.5-4.9); POTASSIUM 3.9 mmol/L (3.5-5.1)
[2022-08-08] MEDS: ASCORBIC ACID 500 MG TABLET GT SCH (08:59)
[2022-08-08] MEDS: levETIRAcetam 500 MG/5 ML LIQUID UDC GT SCH (08:59)
[2022-08-08] MEDS: predniSONE 5 MG TABLET GT SCH (08:59)
[2022-08-08] MEDS: MIRALAX 17 GM POWD.PACK GT SCH (08:59)
[2022-08-08] MEDS: PANTOPRAZOLE ORAL SUSPENSION 40 MG SUSPDR.PKT GT SCH (08:59)
[2022-08-08] MEDS: CHOLECALCIFEROL 1,000 UNIT TABLET GT SCH (08:59)
[2022-08-08] MEDS: MULTIVIT, IRON, MIN NO. 8, FA TABLET GT SCH (08:59)
[2022-08-08] MEDS: ENOXAPARIN SODIUM 40 MG/0.4 ML DISP.SYRIN SQ SCH (09:02)
[2022-08-08 12:00] VITALS: BP 116/63
[2022-08-08] MEDS ORDERED: MAGNESIUM OXIDE 400 MG TABLET GT ONE (12:00)
[2022-08-08] MEDS: MINERAL OIL/PETROLAT OPHT OINT 3.5 GM TUBE EACHEYE SCH ×3 (12:43→21:02)
[2022-08-08 16:00] VITALS: BP 104/57
[2022-08-08 20:00] VITALS: BP 116/53
--- NOTE | 2022-08-08 20:00 | NUR ---
Received patient lying in bed. Obtunded, non-verbal. In no acute distress. No signs or symptoms of pain or SOB. IJ on right side intact and patent. Trach to vent intact. GT feeding infusing. Rice catheter intact and draining via gravity. Isolation precaution observed. Safety measure maintained.
[2022-08-08] MEDS: VITAL AF 1.2 1,000 ML LIQUID GT PRN (21:01)
[2022-08-09] MEDS: ALBUTEROL SULFATE 1.25 MG/3 ML NEBU NEB SCH ×4 (02:20→19:39)
[2022-08-09] MEDS: IPRATROPIUM BROMIDE 0.5 MG/2.5 ML NEBU NEB SCH ×4 (02:20→19:39)
[2022-08-09 04:00] VITALS: BP 127/60
[2022-08-09] MEDS: MIDODRINE HCL 5 MG TABLET GT SCH ×3 (05:13→21:07)
[2022-08-09] MEDS: MINERAL OIL/PETROLAT OPHT OINT 3.5 GM TUBE EACHEYE SCH ×3 (05:14→21:09)
[2022-08-09] MEDS: POLYVINYL ALCOHOL OPHT DROPS 15 ML BOTTLE EACHEYE SCH ×3 (05:14→21:09)
--- NOTE | 2022-08-09 05:58 | NUR ---
In no acute distress. Patient appears comfortable. GT feeding well tolerated. Suction secretions PRN. Rice catheter intact and draining via gravity. Safety measure maintained and call light within reached.
[2022-08-09 06:31] LABS: HEMATOCRIT 27.7 % (36.7-47.1); MEAN CORPUSCULAR HEMOGLOBIN 31.8 uug (23.8-33.4); MEAN CORPUSCULAR VOLUME 97.6 fL (73.0-96.2); PLATELET COUNT (AUTO) 474 K/uL (152-348)
[2022-08-09 06:45] LABS: CREATININE 0.7 mg/dL (0.6-1.3); MAGNESIUM 1.9 mg/dL (1.8-2.4); PHOSPHOROUS 3.7 mg/dL (2.5-4.9); POTASSIUM 3.4 mmol/L (3.5-5.1)
[2022-08-09] MEDS: PANTOPRAZOLE ORAL SUSPENSION 40 MG SUSPDR.PKT GT SCH (08:29)
[2022-08-09] MEDS: levETIRAcetam 500 MG/5 ML LIQUID UDC GT SCH (08:29)
[2022-08-09] MEDS: CHOLECALCIFEROL 1,000 UNIT TABLET GT SCH (08:29)
[2022-08-09] MEDS: MULTIVIT, IRON, MIN NO. 8, FA TABLET GT SCH (08:29)
[2022-08-09] MEDS: MIRALAX 17 GM POWD.PACK GT SCH (08:29)
[2022-08-09] MEDS: ASCORBIC ACID 500 MG TABLET GT SCH (08:29)
[2022-08-09] MEDS: predniSONE 5 MG TABLET GT SCH (08:29)
[2022-08-09] MEDS: ENOXAPARIN SODIUM 40 MG/0.4 ML DISP.SYRIN SQ SCH (08:31)
[2022-08-09] MEDS ORDERED: POTASSIUM CHLORIDE 20 MEQ POWDER PACKET GT ONE (09:30)
[2022-08-09 11:36] VITALS: BP 106/49
[2022-08-09 15:06] VITALS: BP 113/60
--- NOTE | 2022-08-09 19:25 | NUR ---
Patient obtunded status. VSS. Eyes opened, good eye care provided/eye drops administered as ordered. Trach/oral suctioning provided as needed through out the shift. Patient ventilator dependent, trach securely tied, vent in correct settings and functioning properly. Care provided at routine intervals, spangler cath in place and draining to yellow urine output. GT site care done. GTF and fluids administered as ordered magdeil. well. HOB elevated at all times. Aspiration precautions observed. Isolation for scabies strictly observed and contained. Treatment to LT LE wound done. Affected areas off pressure at all times.
[2022-08-09 19:57] VITALS: BP 121/62
--- NOTE | 2022-08-09 20:00 | NUR ---
RECEIVED PATIENT, NON-VERBAL. RESPONDS TO TOUCH BY CLENCHING. TRACH TO VENT TOLERATING WELL, NO DESATURATION NOTED, ON GTF TOLERATING WELL, ASKEW CATHETER PATENT AND DRAINING WELL. CONTACT PRECAUTIONS. WILL CONTINUE PLAN OF CARE.
[2022-08-09] MEDS: PERMETHRIN 5% CREAM 60 GM TUBE TP SCH (20:57)
[2022-08-09] MEDS ORDERED: PERMETHRIN 5% CREAM 60 GM TUBE TP ONE (21:14)
[2022-08-10] MEDS: IPRATROPIUM BROMIDE 0.5 MG/2.5 ML NEBU NEB SCH ×3 (01:34→13:33)
[2022-08-10] MEDS: ALBUTEROL SULFATE 1.25 MG/3 ML NEBU NEB SCH ×3 (01:34→13:33)
[2022-08-10 05:40] VITALS: BP 116/59
[2022-08-10] MEDS: MIDODRINE HCL 5 MG TABLET GT SCH ×2 (05:44→14:00)
[2022-08-10] MEDS: POLYVINYL ALCOHOL OPHT DROPS 15 ML BOTTLE EACHEYE SCH (05:45)
[2022-08-10] MEDS: MINERAL OIL/PETROLAT OPHT OINT 3.5 GM TUBE EACHEYE SCH (05:45)
--- NOTE | 2022-08-10 06:11 | NUR ---
PATIENT RESTED WELL IN BETWEEN CARE. TRACH TO VENT TOLERATING WELL, NO DESATURATION NOTED, ON GTF TOLERATING WELL, ASKEW CATHETER PATENT AND DRAINING WELL. CONTACT PRECAUTIONS. SAFETY MEASURES IN PLACE, HOURLY ROUNDING COMPLETED. CONTINUE TO MONITOR, CONTINUE PLAN OF CARE.
[2022-08-10 06:44] LABS: CREATININE 0.7 mg/dL (0.6-1.3); MAGNESIUM 1.9 mg/dL (1.8-2.4); PHOSPHOROUS 4.3 mg/dL (2.5-4.9); POTASSIUM 3.6 mmol/L (3.5-5.1)
[2022-08-10 06:49] LABS: HEMATOCRIT 27.3 % (36.7-47.1); MEAN CORPUSCULAR HEMOGLOBIN 31.9 uug (23.8-33.4); MEAN CORPUSCULAR VOLUME 97.6 fL (73.0-96.2); PLATELET COUNT (AUTO) 471 K/uL (152-348)
--- NOTE | 2022-08-10 07:59 | NUR ---
Resting. Trach to vent with settings AC 26, TV 450, FIO2 35%, PEEP 5.
[2022-08-10] MEDS: MIRALAX 17 GM POWD.PACK GT SCH (09:00)
[2022-08-10] MEDS: levETIRAcetam 500 MG/5 ML LIQUID UDC GT SCH (10:17)
[2022-08-10] MEDS: ASCORBIC ACID 500 MG TABLET GT SCH (10:18)
[2022-08-10] MEDS: PANTOPRAZOLE ORAL SUSPENSION 40 MG SUSPDR.PKT GT SCH (10:18)
[2022-08-10] MEDS: predniSONE 5 MG TABLET GT SCH (10:18)
[2022-08-10] MEDS: MULTIVIT, IRON, MIN NO. 8, FA TABLET GT SCH (10:18)
[2022-08-10] MEDS: CHOLECALCIFEROL 1,000 UNIT TABLET GT SCH (10:18)
[2022-08-10] MEDS: ENOXAPARIN SODIUM 40 MG/0.4 ML DISP.SYRIN SQ SCH (10:19)
[2022-08-10 11:32] VITALS: BP 142/55
[2022-08-10 15:23] VITALS: BP 137/41
--- NOTE | 2022-08-10 15:30 | NUR ---
With discharge order to SNF, facilitated with Bossman Dumont. Report given to Eddie. Triple lumen central line RIJ removed as ordered. Discharged per gurney/ambulance in fair condition, afebrile. trach to vent, G tube intact, spangler catheter intact.
== END 2022-08-10 15:30 | DRG 720 ==
LOC: ER 21:22 → TRANSITION 06-20 02:00 → TELE-TD3 06-27 18:23 → TELE3 07-04 12:05 → MEDSURG3 08-07 02:24
PROVIDERS: ADMIT Internal Medicine; ATTEND Internal Medicine
PROC: 02HV33Z Insertion of Infusion Device into Superior Vena Cava, Percutaneous Approach (ICD-10-PCS; principal; 2022-06-20)
PROC: 5A2204Z Restoration of Cardiac Rhythm, Single (ICD-10-PCS; principal; 2022-06-20)
PROC: 5A1955Z Respiratory Ventilation, Greater than 96 Consecutive Hours (ICD-10-PCS; principal; 2022-06-20)
PROC: B548ZZA Ultrasonography of Superior Vena Cava, Guidance (ICD-10-PCS; principal; 2022-06-20)
PROC: 30243N1 Transfusion of Nonautologous Red Blood Cells into Central Vein, Percutaneous Approach (ICD-10-PCS; 2022-06-23)
DX: A41.81 Sepsis due to Enterococcus (principal); J96.21 Acute and chronic respiratory failure with hypoxia; N17.0 Acute kidney failure with tubular necrosis; I46.2 Cardiac arrest due to underlying cardiac condition; R65.21 Severe sepsis with septic shock; G92.8 Other toxic encephalopathy; J69.0 Pneumonitis due to inhalation of food and vomit; K92.2 Gastrointestinal hemorrhage, unspecified; E43 Unspecified severe protein-calorie malnutrition; I50.33 Acute on chronic diastolic (congestive) heart failure; A41.01 Sepsis due to Methicillin susceptible Staphylococcus aureus; A41.89 Other specified sepsis; D68.59 Other primary thrombophilia; J96.22 Acute and chronic respiratory failure with hypercapnia; D69.6 Thrombocytopenia, unspecified; Z93.0 Tracheostomy status; N39.0 Urinary tract infection, site not specified; R00.1 Bradycardia, unspecified; Z20.822 Contact with and (suspected) exposure to COVID-19; I50.9 Heart failure, unspecified; E66.01 Morbid (severe) obesity due to excess calories; Z68.35 Body mass index [BMI] 35.0-35.9, adult; B86 Scabies; M84.48XD Pathological fracture, other site, subsequent encounter for fracture with routine healing; Z74.09 Other reduced mobility; H16.203 Unspecified keratoconjunctivitis, bilateral; Z66 Do not resuscitate; F09 Unspecified mental disorder due to known physiological condition; Z93.1 Gastrostomy status; G40.909 Epilepsy, unspecified, not intractable, without status epilepticus; I13.0 Hypertensive heart and chronic kidney disease with heart failure and stage 1 through stage 4 chronic kidney disease, or unspecified chronic kidney disease; I69.359 Hemiplegia and hemiparesis following cerebral infarction affecting unspecified side; I69.398 Other sequelae of cerebral infarction; E87.6 Hypokalemia; Z99.11 Dependence on respirator [ventilator] status; E88.09 Other disorders of plasma-protein metabolism, not elsewhere classified; G93.1 Anoxic brain damage, not elsewhere classified; R53.2 Functional quadriplegia; R13.10 Dysphagia, unspecified; L89.613 Pressure ulcer of right heel, stage 3; L89.510 Pressure ulcer of right ankle, unstageable; R73.03 Prediabetes; Z16.21 Resistance to vancomycin; R68.0 Hypothermia, not associated with low environmental temperature; I48.92 Unspecified atrial flutter; I48.91 Unspecified atrial fibrillation; J44.9 Chronic obstructive pulmonary disease, unspecified; E03.9 Hypothyroidism, unspecified; H05.20 Unspecified exophthalmos; E87.4 Mixed disorder of acid-base balance; E87.0 Hyperosmolality and hypernatremia; D63.8 Anemia in other chronic diseases classified elsewhere; D62 Acute posthemorrhagic anemia; N18.9 Chronic kidney disease, unspecified; J98.11 Atelectasis; D53.9 Nutritional anemia, unspecified; Z79.899 Other long term (current) drug therapy; B96.4 Proteus (mirabilis) (morganii) as the cause of diseases classified elsewhere; Z16.24 Resistance to multiple antibiotics
CPT/HCPCS: 36415; 36600; 70030-TC; 71045; 73610; 74018; 82803; 83550; 83605; 83735; 84100; 84443; 84484; 84550; 85025; 85730; 86850; 86900; 86901; 86920; 87040; 93005; 93307; 93880; 94002; 94003; 94640; 94760; 99082-TC; A4663; A6209; A6213; C9113; G0378; J0696; J0713; J1650; J1885; J1940; J2020; J2185; J2543; J3370; J3475; J3480; J3490; J3590; J7040; J7050; J7060; J7512; J7614; P9016; P9047